=== PATIENT | female | born 1950 ===

== ENCOUNTER 2021-03-20 19:25 | Inpatient (IN) | payer OTHER, MEDICARE ==
[~2021-03-20] VITALS: Ht 157.5 cm; Wt 72.6 kg
[2021-03-20] MEDS ORDERED: LOSA50TA39 PO (19:42)
[2021-03-20] MEDS ORDERED: DIABETIC MED PO (19:42)
--- NOTE | 2021-03-20 19:49 | NUR ---
pt brought in by RA for sob, covid exposure at home. Dr. Rios at bedside for MSE.
[2021-03-20 20:38] LABS: *BILIRUBIN,URIN NEGATIVE (NEGATIVE); *BLOOD, URINE 2+ (NEGATIVE); *CLARITY,URINE CLEAR (CLEAR); *COLOR,URINE YELLOW (YELLOW); *KETONES,URINE 2+ (NEGATIVE); *UROBILINOGEN,URINE 0.2 E.U./dl (NORMAL); LEUKOCYTE ESTERASE ,URINE NEGATIVE (NEGATIVE); NITRITE, URINE POSITIVE (NEGATIVE); UGLUCOSE 1+ (NEGATIVE)
--- NOTE | 2021-03-20 20:41 | NUR ---
lab delroy blood, cxr performed.
[2021-03-20 20:47] LABS: HEMATOCRIT 37.6 % (31.2-41.9); MEAN CORPUSCULAR HEMOGLOBIN 22.4 uug (24.7-32.8); MEAN CORPUSCULAR VOLUME 69.1 fL (75.5-95.3); PLATELET COUNT (AUTO) 299 K/uL (179-408)
[2021-03-20 20:58] LABS: CREATININE 0.9 mg/dL (0.6-1.3); POTASSIUM 3.2 mmol/L (3.5-5.1)
[2021-03-20] MEDS ORDERED: DEXAMETHASONE SOD PHOSPHATE 4 MG INJ IM ONE (21:00)
[2021-03-20] MEDS ORDERED: CHOLECALCIFEROL 1,000 UNIT TABLET PO SCH (21:00)
--- NOTE | 2021-03-20 21:10 | NUR ---
Called [facility], spoke with
[2021-03-20 21:15] LABS: BILIRUBIN,DIRECT 0.3 mg/dL (0.0-0.2); BILIRUBIN,TOTAL 0.6 mg/dL (0.2-1.0); TOTAL PROTEIN, SERUM 8.1 g/dL (6.4-8.2)
[2021-03-20] MEDS ORDERED: IV NS 1000 ML 1,000 ML IV ONE (21:15)
[2021-03-20] MEDS ORDERED: POTASSIUM BICARBONATE/CIT AC 25 MEQ TABLET.EFF PO ONE (21:15)
--- NOTE | 2021-03-20 21:25 | NUR ---
call to [facility] panel doctor for admission.
[2021-03-20] MEDS ORDERED: MAGNESIUM SULFATE 2 GM in IV DEXTROSE 5% 100 ML IV ONE (21:30)
[2021-03-20] MEDS ORDERED: DEXAMETHASONE SOD PHOSPHATE 4 MG INJ ONE (21:43)
[2021-03-20] MEDS ORDERED: POTASSIUM BICARBONATE/CIT AC 25 MEQ TABLET.EFF ONE (21:44)
[2021-03-20] MEDS ORDERED: MAGNESIUM SULFATE/D5W 200 ML ONE (21:44)
--- NOTE | 2021-03-20 21:51 | NUR ---
Dr. Rios on panel call with Martine Brunner NP.
[2021-03-20] MEDS ORDERED: DEXAMETHASONE SOD PHOSPHATE 4 MG INJ IV ONE (22:00)
[2021-03-20] MEDS ORDERED: ONDANSETRON 4 MG/2 ML VIAL IV PRN (22:00)
[2021-03-20] MEDS ORDERED: CHOLECALCIFEROL 1,000 UNIT TABLET ONE (22:03)
[2021-03-20] MEDS ORDERED: IOHEXOL 350 100 ML INFUS..BTL ONE (22:12)
[2021-03-20] MEDS ORDERED: IV NORMAL SALINE 250 ML IV ONE (22:12)
[2021-03-20] MEDS ORDERED: SWABABLE VALVE TRANSFER SET EA MC ONE (22:12)
[2021-03-20 22:15] LABS: ABG BASE EXCESS 2.3 mmol/L; ABG HCO3 24.3 mmol/L; ABG PCO2 29.9 mmHg (35.0-45.0); ABG PH 7.528 (7.350-7.450); ABG PO2 46.9 mmHg (75.0-100.0); ABG SITE LEFT RADIAL; ABG TOTAL HEMOGLOBIN 12.3 G/dL (12.0-16.0); COHb 0.6 % (0.5-1.5); O2Hb 86.4 % (94.0-97.0); VENT MODE Nasal Cannula
--- NOTE | 2021-03-20 22:18 | NUR ---
abg performed po2 is low RT will report to .
[2021-03-20] MEDS: CHOLECALCIFEROL 1,000 UNIT TABLET PO SCH (22:20)
[2021-03-20 22:25] LABS: BAND % (MANUAL) 4 % (0-10); LYMPHOCYTES % (MANUAL) 5 % (20-40); MONOCYTES % (MANUAL) 4 % (2-10); NEUTROPHILS % (MANUAL) 87 % (42-75)
[2021-03-20] MEDS ORDERED: CEFTRIAXONE /D5W 50ML IVPB **ER PYXIS IV ONE (22:34)
--- NOTE | 2021-03-20 22:34 | NUR ---
order from dr. reyes to place pt on bipap. called RT.
--- NOTE | 2021-03-20 22:52 | NUR ---
pt taken for cta with RT and cardiac cath lab radiology technologist.
[2021-03-20 22:53] LABS: BACTERIA,URINE MANY /HPF (NONE SEEN); SQUAMOUS EPITHELIAL CELL,UR FEW /HPF (NONE SEEN)
[2021-03-20] MEDS ORDERED: ENOXAPARIN SODIUM 60 MG/0.6 ML DISP.SYRIN SQ SCH (23:00)
[2021-03-20] MEDS: CEFTRIAXONE 1 G in IV DEXTROSE 5% 50 ML IV SCH (23:29)
[2021-03-21] MEDS ORDERED: ENOXAPARIN SODIUM 60 MG/0.6 ML DISP.SYRIN SQ ONE (01:13)
--- NOTE | 2021-03-21 02:17 | NUR ---
report called to Lalitha Garza pt to go to room 320
--- NOTE | 2021-03-21 02:50 | NUR ---
pt transferred to room 322 via [facility] with all belongings. RT and myself transferred the patient. Pt remains on bipap.
[2021-03-21] MEDS: IV NS 1000 ML 1,000 ML IV PRN (03:32)
--- NOTE | 2021-03-21 05:36 | NUR ---
Pt arrived at 0340 via gurney. On Bipap, 18 iPAP/ 5 ePap, 02 100% R=18, Rise =3, saturating at 97%. AO x 4. Able to state needs. L AC 22g intact and patent, running NS at 75 mls/hr. R wrist 22 g heplock, saline flushed. Admission packet completed. Aspiration precautions. Droplet Precautions. Call lights within reach, safety measures maintained. Will endorse to am shift.
[2021-03-21 06:31] LABS: HEMATOCRIT 35.5 % (31.2-41.9); MEAN CORPUSCULAR HEMOGLOBIN 22.7 uug (24.7-32.8); MEAN CORPUSCULAR VOLUME 70.5 fL (75.5-95.3); PLATELET COUNT (AUTO) 252 K/uL (179-408)
[2021-03-21 06:44] LABS: CREATININE 0.9 mg/dL (0.6-1.3); MAGNESIUM 2.6 mg/dL (1.8-2.4); PHOSPHOROUS 3.2 mg/dL (2.5-4.9); POTASSIUM 3.8 mmol/L (3.5-5.1)
--- NOTE | 2021-03-21 10:00 | NUR ---
Received PT resting in bed on Bi-pap, 18 i-PAP/ 5 ePap, 02 100% R=18, saturating at 97%. AO x 4. Able to state needs. L AC 22g intact and patent,. R wrist 22 g heplock, saline flushed.Aspiration precautions. Droplet Precautions in place. PT was place on high flow 40% FIO2 of 100% via the RT. Receive a called from the lab with critical values of Glucose 308, with new order for mild sliding scale. Call lights within reach, safety measures maintained. Will continue to monitor during the shift.
[2021-03-21] MEDS: DEXAMETHASONE SOD PHOSPHATE 4 MG INJ IV SCH (10:03)
[2021-03-21] MEDS: LOSARTAN POTASSIUM 50 MG TABLET PO SCH (10:04)
[2021-03-21] MEDS: ENOXAPARIN SODIUM 80 MG/0.8 ML DISP.SYRIN SQ SCH ×2 (10:25→21:59)
[2021-03-21] MEDS ORDERED: ENOXAPARIN SODIUM 60 MG/0.6 ML DISP.SYRIN SQ SCH (10:29)
[2021-03-21] MEDS ORDERED: ENOXAPARIN SODIUM 80 MG/0.8 ML DISP.SYRIN SQ SCH (10:30)
[2021-03-21] MEDS ORDERED: DEXTROSE 50% 50 ML DISP.SYRIN IV PRN (11:00)
[2021-03-21] MEDS: BLOOD SUGAR DIAGNOSTIC 1 EACH STRIP VI SCH ×3 (11:30→21:57)
[2021-03-21 11:54] VITALS: BP 135/53
[2021-03-21] MEDS: INSULIN REGULAR, HUMAN 300 UNIT/3 ML VIAL SQ PRN ×3 (12:39→22:00)
[2021-03-21 16:00] VITALS: BP 122/59
[2021-03-21] MEDS ORDERED: CEFTRIAXONE 1 G in IV DEXTROSE 5% 50 ML IV SCH (19:00)
[2021-03-21 20:00] VITALS: BP 144/54
[2021-03-21] MEDS: AZITHROMYCIN IV 500 MG in IV DEXTROSE 5% 250 ML IV SCH (20:59)
[2021-03-21] MEDS ORDERED: REMDESIVIR (CHARGED) 200 MG in IV NORMAL SALINE 210 ML IV ONE (21:00)
[2021-03-21] MEDS ORDERED: TOCILIZUMAB 400 MG in IV NORMAL SALINE 80 ML IV ONE (22:30)
[2021-03-22] VITALS: BP 122/70
--- NOTE | 2021-03-22 05:32 | NUR ---
Pt on Bipap with 18 ipap, 5 epap, O2 80%, R 18 saturating at 88-92% with continious pulse ox. AO x 4. IV in L AC intact and running 75 mls/hr. Rocephin and Remdesivir abx given, tolerated. Tocilizumab 400 mg in NS not given, not available. No signs of acute distress. Call lights within reach. Safety measures maintained. Will endorse to am shift.
[2021-03-22] MEDS: IV NS 1000 ML 1,000 ML IV PRN (06:48)
[2021-03-22] MEDS: BLOOD SUGAR DIAGNOSTIC 1 EACH STRIP VI SCH ×4 (07:17→21:00)
[2021-03-22] MEDS ORDERED: TOCILIZUMAB 400 MG in IV NORMAL SALINE 80 ML IV ONE (07:45)
--- NOTE | 2021-03-22 08:18 | NUR ---
Received pt, She is on 80% flow on bipap, saturating at 98%. RT in room to switch to high flow NC in order for pt to eat breakfast, delivering 100% but pt desaturates to 76%-86%. Notified Nursing passenger service supervisor of ICU transfer order since 03/21/21 1800, she stated that pt may have to stay on floor due to full capacity in ICU and 2 pending in ER. Will continue to closely monitor patient.
[2021-03-22 08:30] VITALS: BP 121/68
[2021-03-22] MEDS: DEXAMETHASONE SOD PHOSPHATE 4 MG INJ IV SCH (08:35)
[2021-03-22] MEDS: CHOLECALCIFEROL 1,000 UNIT TABLET PO SCH (08:35)
[2021-03-22 08:45] LABS: HEMATOCRIT 44.3 % (31.2-41.9); MEAN CORPUSCULAR HEMOGLOBIN 22.6 uug (24.7-32.8); MEAN CORPUSCULAR VOLUME 70.5 fL (75.5-95.3); PLATELET COUNT (AUTO) 358 K/uL (179-408)
[2021-03-22] MEDS: LOSARTAN POTASSIUM 50 MG TABLET PO SCH (08:46)
[2021-03-22 08:47] LABS: BILIRUBIN,DIRECT 0.2 mg/dL (0.0-0.2); BILIRUBIN,TOTAL 0.4 mg/dL (0.2-1.0); CREATININE 0.9 mg/dL (0.6-1.3); MAGNESIUM 2.9 mg/dL (1.8-2.4); PHOSPHOROUS 2.8 mg/dL (2.5-4.9); POTASSIUM 4.2 mmol/L (3.5-5.1)
[2021-03-22] MEDS: ACETAMINOPHEN 325 MG TABLET PO PRN (08:47)
[2021-03-22] MEDS: CEFTRIAXONE 1 G in IV DEXTROSE 5% 50 ML IV SCH (08:48)
[2021-03-22] MEDS: ENOXAPARIN SODIUM 80 MG/0.8 ML DISP.SYRIN SQ SCH ×2 (08:49→21:00)
[2021-03-22] MEDS: INSULIN REGULAR, HUMAN 300 UNIT/3 ML VIAL SQ PRN ×3 (08:50→16:24)
[2021-03-22] MEDS ORDERED: TOCILIZUMAB 600 MG in IV NORMAL SALINE 70 ML IV ONE (11:00)
[2021-03-22 12:00] VITALS: BP 127/61
[2021-03-22 13:42] LABS: ABG HCO3 25.5 mmol/L; ABG PCO2 36.2 mmHg (35.0-45.0); ABG PH 7.466 (7.350-7.450); ABG PO2 64.9 mmHg (75.0-100.0); ABG SITE RIGHT RADIAL; ABG TOTAL HEMOGLOBIN 12.6 G/dL (12.0-16.0); COHb 0.2 % (0.5-1.5); MetHb 0.1 % (0.0-1.5); VENT MODE BIPAP 18/6
[2021-03-22 16:00] VITALS: BP 125/60
[2021-03-22] MEDS ORDERED: FUROSEMIDE 40 MG/4 ML VIAL IV ONE (16:45)
[2021-03-22 16:54] LABS: CARBON DIOXIDE 30 mmol/L (21-32); CHLORIDE 91 mmol/L (98-107); CREATININE 0.9 mg/dL (0.6-1.3); GLUCOSE 257 mg/dL (74-106); MAGNESIUM 2.5 mg/dL (1.8-2.4); PHOSPHOROUS 3.2 mg/dL (2.5-4.9); POTASSIUM 4.2 mmol/L (3.5-5.1); UREA NITROGEN, BLOOD 15 mg/dL (7-18)
--- NOTE | 2021-03-22 17:30 | NUR ---
per lab cortisol will be drawn in the morning due to no picking supervisor inspector quality assurance.
[2021-03-22 17:40] LABS: THYROID STIMULATING HORMONE 0.112 mIU/mL (0.358-3.740)
--- NOTE | 2021-03-22 19:10 | NUR ---
Patient received on Respironics-V60 on settings of IPAP 18, EPAP 6, set resp. rate 18 and FIO2-100%. No resp. distress noted. BVM is at bedside. Pt to be monitored throughout the shift. V-60 alarm parameters have been checked and remain audible.
--- NOTE | 2021-03-22 19:16 | NUR ---
pt is currently on 100% O2 on bipap machine saturating 93-95%, IPAP [id number], EPAP 6cmH2O, rate 58BPM, PIP [id number]. pt desaturates to 76-78% on high flow and nonrebreather. pt kept on BiPap. call RT when meals are given to switch to high flow until not tolerated anymore. Pt currently stable, comfort measures provided, call light within reach, endorsed to shift supervisor melting.
[2021-03-22] MEDS: AZITHROMYCIN IV 500 MG in IV DEXTROSE 5% 250 ML IV SCH (20:00)
[2021-03-22] MEDS: REMDESIVIR (CHARGED) 100 MG in IV NORMAL SALINE 100 ML IV SCH (21:44)
[2021-03-23] MEDS: INSULIN REGULAR, HUMAN 300 UNIT/3 ML VIAL SQ PRN ×5 (01:45→20:57)
[2021-03-23 07:24] LABS: MEAN CORPUSCULAR HEMOGLOBIN 22.3 uug (24.7-32.8); MEAN CORPUSCULAR VOLUME 69.8 fL (75.5-95.3); PLATELET COUNT (AUTO) 391 K/uL (179-408)
[2021-03-23 07:39] LABS: BILIRUBIN,DIRECT 0.2 mg/dL (0.0-0.2); BILIRUBIN,TOTAL 0.2 mg/dL (0.2-1.0); CREATININE 0.7 mg/dL (0.6-1.3); MAGNESIUM 2.4 mg/dL (1.8-2.4); PHOSPHOROUS 3.6 mg/dL (2.5-4.9); POTASSIUM 3.7 mmol/L (3.5-5.1); TOTAL PROTEIN, SERUM 6.9 g/dL (6.4-8.2)
--- NOTE | 2021-03-23 08:21 | NUR ---
Supervisor [employer] informed of transfer order to CCU and patient currently on continuos bipap, pt desaturates to low 70% when off bipap for short period of time, per airplane flight attendant supervisor we are aware, we will monitor for now.
[2021-03-23] MEDS: CEFTRIAXONE 1 G in IV DEXTROSE 5% 50 ML IV SCH (08:24)
[2021-03-23] MEDS: ENOXAPARIN SODIUM 80 MG/0.8 ML DISP.SYRIN SQ SCH ×2 (08:26→20:56)
[2021-03-23] MEDS: DEXAMETHASONE SOD PHOSPHATE 4 MG INJ IV SCH ×3 (08:28→22:56)
[2021-03-23] MEDS: LOSARTAN POTASSIUM 50 MG TABLET PO SCH (08:29)
[2021-03-23] MEDS: CHOLECALCIFEROL 1,000 UNIT TABLET PO SCH (08:29)
[2021-03-23] MEDS: BLOOD SUGAR DIAGNOSTIC 1 EACH STRIP VI SCH ×4 (08:39→20:56)
[2021-03-23] MEDS ORDERED: FUROSEMIDE 40 MG/4 ML VIAL IV ONE (09:30)
[2021-03-23 09:57] LABS: ABG BASE EXCESS 5.5 mmol/L; ABG HCO3 29.1 mmol/L; ABG PCO2 39.2 mmHg (35.0-45.0); ABG PH 7.489 (7.350-7.450); ABG PO2 52.5 mmHg (75.0-100.0); ABG SITE LEFT RADIAL; ABG TOTAL HEMOGLOBIN 12.7 G/dL (12.0-16.0); COHb 0.4 % (0.5-1.5); MetHb 0.1 % (0.0-1.5); O2Hb 87.6 % (94.0-97.0); VENT MODE BIPAP
[2021-03-23 11:00] VITALS: BP 133/54
[2021-03-23 13:29] LABS: LYMPHOCYTES % (MANUAL) 11 % (20-40); MONOCYTES % (MANUAL) 9 % (2-10); NEUTROPHILS % (MANUAL) 80 % (42-75)
--- NOTE | 2021-03-23 14:15 | NUR ---
assisted patient to eat lunch, patient placed on high flow to attempt to feed was only able to eat 15% patient desaturates between 79%-83%, promptly placed back on bipap, current spo2 is 91%.
[2021-03-23 16:00] VITALS: BP 154/68
[2021-03-23] MEDS: AZITHROMYCIN IV 500 MG in IV DEXTROSE 5% 250 ML IV SCH (20:29)
--- NOTE | 2021-03-23 21:00 | NUR ---
PATIENT ALERT ORIENTED, ON BIPAP, SAT 92% NO COMPLAIN AT THIS TIME, REMAINS ON DROPLET PRECAUTION, KEPT COMFORTABE, CALL LIGHT WITHIN REACH.
[2021-03-23] MEDS: REMDESIVIR (CHARGED) 100 MG in IV NORMAL SALINE 100 ML IV SCH (21:28)
[2021-03-24] VITALS (8 sets, daily range): BP systolic 146–170; BP diastolic 54–86
--- NOTE | 2021-03-24 05:01 | NUR ---
PATIENT ASLEEP BUT AROUSABLE, PATIENT ON BIPAP 100% SAT 90 TO 92%. PATIENT COMPLAIN OF DRY THROAT, RT GAVE WATER WHILE PATIENT ON THE HIGHFLOW OXYGEN TO PREVENT FROM DESATURATING., TELE MONITOR SINUS RHYTHM, KEPT CLEAN DRY AND COMFORTABLE.
[2021-03-24] MEDS: DEXAMETHASONE SOD PHOSPHATE 4 MG INJ IV SCH ×3 (06:11→21:16)
[2021-03-24 06:36] LABS: HEMATOCRIT 38.6 % (31.2-41.9); MEAN CORPUSCULAR VOLUME 70.1 fL (75.5-95.3); PLATELET COUNT (AUTO) 462 K/uL (179-408)
[2021-03-24] MEDS: BLOOD SUGAR DIAGNOSTIC 1 EACH STRIP VI SCH ×4 (06:37→20:57)
[2021-03-24 06:59] LABS: BILIRUBIN,DIRECT 0.2 mg/dL (0.0-0.2); BILIRUBIN,TOTAL 0.3 mg/dL (0.2-1.0); CREATININE 0.8 mg/dL (0.6-1.3); POTASSIUM 3.5 mmol/L (3.5-5.1); TOTAL PROTEIN, SERUM 7.2 g/dL (6.4-8.2)
--- NOTE | 2021-03-24 07:30 | NUR ---
Received patient in bed alert and oriented times 4. Pt is currently on BIPAP FIO2 is 100% with a O2 rate of 38.4. Pt is having SOB at this time. Safety precautions are in place place. Increased monitoring of patient is needed. Will continue to monitor.
--- NOTE | 2021-03-24 08:46 | NUR ---
Awaiting midline to infuse IV potassium. Nursing office aware of midline. Will continue to monitor.
[2021-03-24] MEDS: CEFTRIAXONE 1 G in IV DEXTROSE 5% 50 ML IV SCH (10:15)
[2021-03-24] MEDS: CHOLECALCIFEROL 1,000 UNIT TABLET PO SCH (10:16)
[2021-03-24] MEDS: LOSARTAN POTASSIUM 50 MG TABLET PO SCH (10:20)
[2021-03-24] MEDS: INSULIN REGULAR, HUMAN 300 UNIT/3 ML VIAL SQ PRN ×4 (10:32→20:58)
[2021-03-24] MEDS: ENOXAPARIN SODIUM 80 MG/0.8 ML DISP.SYRIN SQ SCH ×2 (10:33→20:59)
[2021-03-24] MEDS ORDERED: TOCILIZUMAB 400 MG in IV NORMAL SALINE 80 ML IV ONE (11:15)
[2021-03-24] MEDS: POTASSIUM CHLORIDE 50 ML IV SCH ×2 (14:23→17:50)
[2021-03-24] MEDS ORDERED: TOCILIZUMAB 600 MG in IV NORMAL SALINE 70 ML IV ONE ×4 (15:00)
[2021-03-24] MEDS: METHIMAZOLE 5 MG TABLET PO SCH ×2 (15:09→21:16)
[2021-03-24] MEDS ORDERED: NORMAL SALINE IV ONE (16:00)
[2021-03-24] MEDS ORDERED: TOCILIZUMAB IV ONE (16:00)
--- NOTE | 2021-03-24 16:39 | NUR ---
Patient brought in at this by charge Enedelia Naik as stated medications hanging will be administered by floor nurse. noted several bags of piggy backs hanging with endings uncap. one bag of potassium hanging not infusing no report received. One bag of remdesevir noted awaiting for report. Addendum: 03/24/21 at 1747 by RAMÓN AN RN bar of ectam.
--- NOTE | 2021-03-24 17:13 | NUR ---
upon assessment patient AAOx3. follows commands, Hemodynamically stable heart rate in the mid 70's NSR sbp 158/86. Patient on BIPAP 18/6. Rate Rate of 18, FIo2 100%. Will continue to monitor.
[2021-03-24] MEDS ORDERED: POTASSIUM CHLORIDE 50 ML IV SCH (17:45)
--- NOTE | 2021-03-24 17:45 | NUR ---
Bedside report received from Enedelia Blanca. pharmacy called with her present potassium 2nd dose will be reschedule. Will continue to monitor.
--- NOTE | 2021-03-24 17:50 | NUR ---
2Nd bag of potassium not given. endorse to be given in ICU.
--- NOTE | 2021-03-24 17:57 | NUR ---
Report endorse to the ICU nurse. Pt sent in stable condition on BIPAP saturating at 88%.
[2021-03-24] MEDS: PANTOPRAZOLE SODIUM 40 MG VIAL IV SCH (18:09)
--- NOTE | 2021-03-24 19:30 | NUR ---
rounds made patient in bed AAOX4,MAEX4 slow and weak .patient able to verbalized needs .call light placed with in reach .advised to call for help .covid + patient on bipap 18/6 rate 18 fio2 100% saturation 98% rr 39.hob up and placed 2 pillows at the back . f/c to bsd with yellowish urine .
[2021-03-24] MEDS: REMDESIVIR (CHARGED) 100 MG in IV NORMAL SALINE 100 ML IV SCH (20:55)
[2021-03-24] MEDS: AZITHROMYCIN IV 500 MG in IV DEXTROSE 5% 250 ML IV SCH (20:55)
--- NOTE | 2021-03-24 21:00 | NUR ---
due po medication given patient took medication with sips of water .
--- NOTE | 2021-03-24 22:00 | NUR ---
incontinent of stool ,changed soiled linens and gown ,f/c done and perineal care done . turned and reposition patient .
[2021-03-24] MEDS: MORPHINE SULFATE 2 MG/1 ML DISP.SYRIN IV PRN (23:32)
--- NOTE | 2021-03-24 23:32 | NUR ---
called [facility] service c/o patient very restless and hyperventilating ,on bipap ,spoked with doctor SONAM obtained orders for prn morphine and Ativan .
[2021-03-25] VITALS (48 sets, daily range): BP systolic 61–170; BP diastolic 33–86
--- NOTE | 2021-03-25 00:26 | NUR ---
PATIENT ON CONT BI/PAP WITH MED MASK , PT AWAKE AND ANXIOUS AT TIMES, PT TENDS TO BREATH RAPID AT TIMES, SETTINGS, 18/,RR18 , 100%, D ELIZA RIB BUILDER Addendum: 03/25/21 at 0034 by SOREN KAY RT Amended: Links added.
[2021-03-25] MEDS: IV NORMAL SALINE 250 ML IV PRN (01:35)
[2021-03-25] MEDS: MORPHINE SULFATE 2 MG/1 ML DISP.SYRIN IV PRN ×2 (03:36→20:35)
--- NOTE | 2021-03-25 03:36 | NUR ---
prn morphine given c/o generalized body pain and c/o rapid breathing RR 35 TO 38.
--- NOTE | 2021-03-25 04:00 | NUR ---
sips of water given c/o request ,aspiration precaution observed .
[2021-03-25] MEDS: METHIMAZOLE 5 MG TABLET PO SCH ×3 (05:22→21:11)
[2021-03-25] MEDS: DEXAMETHASONE SOD PHOSPHATE 4 MG INJ IV SCH ×3 (05:23→21:11)
[2021-03-25 05:57] LABS: HEMATOCRIT 42.5 % (31.2-41.9); MEAN CORPUSCULAR HEMOGLOBIN 22.2 uug (24.7-32.8); MEAN CORPUSCULAR VOLUME 70.6 fL (75.5-95.3); PLATELET COUNT (AUTO) 542 K/uL (179-408)
[2021-03-25 06:13] LABS: BILIRUBIN,DIRECT 0.2 mg/dL (0.0-0.2); BILIRUBIN,TOTAL 0.3 mg/dL (0.2-1.0); CREATININE 0.9 mg/dL (0.6-1.3); MAGNESIUM 2.6 mg/dL (1.8-2.4); PHOSPHOROUS 5.3 mg/dL (2.5-4.9); POTASSIUM 4.3 mmol/L (3.5-5.1); TOTAL PROTEIN, SERUM 6.6 g/dL (6.4-8.2)
[2021-03-25] MEDS: BLOOD SUGAR DIAGNOSTIC 1 EACH STRIP VI SCH ×4 (07:43→23:09)
[2021-03-25] MEDS: INSULIN REGULAR, HUMAN 300 UNIT/3 ML VIAL SQ PRN ×4 (07:44→23:10)
[2021-03-25] MEDS: LOSARTAN POTASSIUM 50 MG TABLET PO SCH (08:30)
[2021-03-25] MEDS: CHOLECALCIFEROL 1,000 UNIT TABLET PO SCH (08:30)
[2021-03-25] MEDS: PANTOPRAZOLE SODIUM 40 MG VIAL IV SCH (08:31)
[2021-03-25] MEDS: ENOXAPARIN SODIUM 80 MG/0.8 ML DISP.SYRIN SQ SCH ×2 (08:31→20:33)
[2021-03-25] MEDS: CEFTRIAXONE 1 G in IV DEXTROSE 5% 50 ML IV SCH (08:32)
[2021-03-25 08:36] LABS: ABG BASE EXCESS 2.7 mmol/L; ABG HCO3 28.4 mmol/L; ABG PCO2 47.6 mmHg (35.0-45.0); ABG PH 7.393 (7.350-7.450); ABG PO2 40.2 mmHg (75.0-100.0); ABG SITE LEFT RADIAL; ABG TOTAL HEMOGLOBIN 14.4 G/dL (12.0-16.0); COHb 0.9 % (0.5-1.5); MetHb 0.4 % (0.0-1.5); O2Hb 70.1 % (94.0-97.0); VENT MODE VENT - BILEVEL
--- NOTE | 2021-03-25 09:31 | NUR ---
Family member called claiming to be brother asking for patient information. Patient did not give any contact member. Asked forensic social worker to get involved in trying to find out whether information can be released to anyone.
--- NOTE | 2021-03-25 11:14 | NUR ---
Spoke to patient. patient gave brother as family contact Bernardo Ra that lives in [place] with a phone number that she wrote down [phone]. Patient is ok to give health information to brother.
[2021-03-25] MEDS: PROPOFOL 100 ML IV PRN ×3 (11:54→22:38)
--- NOTE | 2021-03-25 12:00 | NUR ---
patient was intubated with ET of 7.5 and 22cm at the lip with vent settings AC20, 450TV, Peep 10, FiO2 100%. NGT was placed and chest CXR ordered.
--- NOTE | 2021-03-25 12:00 | NUR ---
PT ORALLY INTUBATED AT THIS TIME WITH 7.5 ETT APPROX. 22CM AT THE LIP. CO2 DETECTOR CONFIRMED ETT PLACEMENT. VENT SETTINGS ARE ORDERED BY MD. AMBU BAG IS AT BEDSIDE. VENT ALARMS CHECKED, ARE ON AND AUDIBLE. ETT IS SECURED VIA ANCHOR FAST. ABG TO BE DONE 1 HR POST INTUBATION. WILL CONTINUE TO MONITOR.
--- NOTE | 2021-03-25 12:00 | NUR ---
Willa Cha spoke to ER doctor Joseph Sanchez and with the patient for need of intubation. Patient received 100 of Rocuronium. and 30 of Etomidate.
[2021-03-25 13:56] LABS: ABG BASE EXCESS 0.8 mmol/L; ABG HCO3 28.9 mmol/L; ABG PCO2 61.4 mmHg (35.0-45.0); ABG PO2 90.7 mmHg (75.0-100.0); ABG SITE LEFT RADIAL; ABG TOTAL HEMOGLOBIN 14.1 G/dL (12.0-16.0); COHb 0.9 % (0.5-1.5); MetHb 0.1 % (0.0-1.5); O2Hb 94.7 % (94.0-97.0); VENT MODE VENT - A/C; VT, ABG 450 mL
--- NOTE | 2021-03-25 14:30 | NUR ---
Reported ABG results to Dr. Gonzalez. Per dr. Gonzalez orders RT made vent changes to increase rate to 26.
[2021-03-25] MEDS ORDERED: DEXTROSE 50% 50 ML DISP.SYRIN IV PRN (14:51)
[2021-03-25] MEDS: NOREPINEPHRINE BITARTRATE 8 MG in IV NORMAL SALINE 242 ML IV PRN (15:45)
--- NOTE | 2021-03-25 19:30 | NUR ---
DR: SONAM AT [facility] came and rounded on patient . report given to .
--- NOTE | 2021-03-25 20:00 | NUR ---
vented ETT -7.5/22 CM SETTINGS AC26/450/100% PEEP 10.increase propofol drip to 50 mcg/kg/min patient tachypneic on the ventilator .
[2021-03-25] MEDS: AZITHROMYCIN IV 500 MG in IV DEXTROSE 5% 250 ML IV SCH (20:15)
[2021-03-25] MEDS: REMEDY ESSENTIAL ZINC PASTE 113 GM TOP SCH (20:20)
--- NOTE | 2021-03-25 20:35 | NUR ---
given prn morphine c/o patient is tachypneic abdominally breathing RR 35 on the vent .
[2021-03-25] MEDS: REMDESIVIR (CHARGED) 100 MG in IV NORMAL SALINE 100 ML IV SCH (20:36)
--- NOTE | 2021-03-25 20:45 | NUR ---
FINGERSTICK done 263 mg/dl Lantus insulin given see emar .
--- NOTE | 2021-03-25 20:45 | NUR ---
CHRISTIAN LEON TON CONTAINER SHIPPER CAME AND UPDATED WITH PATIENT CONDITION .
[2021-03-25] MEDS ORDERED: INSULIN GLARGINE,HUM 300 UNITS/3 ML CARTRIDGE SQ SCH (21:00)
--- NOTE | 2021-03-25 21:00 | NUR ---
increase LEVOPHED DRIP c/o low bp to keep SBP >90 .
[2021-03-25] MEDS ORDERED: ROCURONIUM BROMIDE 50 MG/5 ML VIAL ONE ×2 (22:00)
[2021-03-25] MEDS ORDERED: ETOMIDATE 20 MG/10 ML VIAL ONE ×2 (22:00)
[2021-03-25] MEDS ORDERED: PHENYLEPHRINE IV 50 MG in IV NORMAL SALINE 245 ML IV PRN (22:15)
--- NOTE | 2021-03-25 22:17 | NUR ---
CALLED [facility] AND SPOKED WITH KERI EPPERSON [employer] CONSULTANT, C/O LOW BP ,TACHYPNEIC ON THE VENT AND LOW SATURATION WITH ORDER TO INCREASE PROPOFOL TO MAX OF 100 MCG/KG/MIN ,PRN NORSYNEPHRINE DRIP PER PROTOCOL AND VERSED DRIP PER PROTOCOL IF NEEDED. Addendum: 03/26/21 at 0150 by WESTLEY ZIMMER RN NEOSYNEPHRINE DRIP.
[2021-03-25 22:48] LABS: ABG BASE EXCESS -2.1 mmol/L; ABG HCO3 23.6 mmol/L; ABG PCO2 44.1 mmHg (35.0-45.0); ABG PH 7.347 (7.350-7.450); ABG PO2 31.9 mmHg (75.0-100.0); ABG SITE LEFT RADIAL; ABG TOTAL HEMOGLOBIN 14.3 G/dL (12.0-16.0); COHb 0.7 % (0.5-1.5); MetHb 0.3 % (0.0-1.5); O2Hb 56.5 % (94.0-97.0); VENT MODE VENT - A/C; VT, ABG 450 mL
--- NOTE | 2021-03-25 23:00 | NUR ---
CALLED [facility] INSTALLER AND REMOVER C/O ABG RESULT ,AWAITING CALL BACK PER SERVICE THE METER INSTALLER AND REMOVER IS DANELLE.
--- NOTE | 2021-03-25 23:22 | NUR ---
SPOKED TO [facility] AND DICTATED ABG RESULTS WITH ORDER TO INCREASE PEEP TO 13 IF NOT ENOUGH INCREASE TO 15.PRONE PATIENT .
--- NOTE | 2021-03-25 23:33 | NUR ---
CALLED RESPIRATORY THERAPIST CAME AND INCREASE PEEP TO 15.HR 92,BP 99/49 RR 27 SATURATION 100% ,PATIENT IMPROVED AFTER PEEP WAS INCREASE .CONTINUE TO MONITOR .
[2021-03-26] VITALS (95 sets, daily range): BP systolic 59–172; BP diastolic 27–100
--- NOTE | 2021-03-26 | NUR ---
fingerstick done and follow insulin sliding scale see emar . Levophed drip titrated to keep sbp >90 mm/hg . propofol increase to help with patient tachypnea and overbreathing with the vent settings see vital signs and IV spreadsheet .
--- NOTE | 2021-03-26 01:00 | NUR ---
GREG FRANCISCO AT [facility] FOR PICCLINE INSERTION .
--- NOTE | 2021-03-26 01:35 | NUR ---
CALLED XRAY FOR STAT CHEST C/O VERIFICATION OF PICCLINE PLACEMENT .
--- NOTE | 2021-03-26 01:45 | NUR ---
GREG CALLED CHEST XRAY GOOD AND OBED GARCIA TO USED
[2021-03-26] MEDS: NOREPINEPHRINE BITARTRATE 8 MG in IV NORMAL SALINE 242 ML IV PRN ×2 (03:04→12:07)
[2021-03-26] MEDS: PROPOFOL 100 ML IV PRN ×6 (03:05→21:43)
[2021-03-26] MEDS: IV NORMAL SALINE 250 ML IV PRN (03:05)
--- NOTE | 2021-03-26 04:30 | NUR ---
bath patient changed soiled linens and gown .Moore care and oral care done .z guard applied to sacral and bilateral groin area ,Mepilex to sacral for protective measures turned and reposition .offloaded back wit pillows elevated bue and ble with pillows heels off bed .
[2021-03-26] MEDS: DEXAMETHASONE SOD PHOSPHATE 4 MG INJ IV SCH ×3 (05:10→21:30)
[2021-03-26] MEDS: METHIMAZOLE 5 MG TABLET PO SCH ×3 (05:10→21:30)
[2021-03-26 05:11] LABS: HEMATOCRIT 45.3 % (31.2-41.9); MEAN CORPUSCULAR HEMOGLOBIN 22.2 uug (24.7-32.8); MEAN CORPUSCULAR VOLUME 70.8 fL (75.5-95.3); PLATELET COUNT (AUTO) 730 K/uL (179-408)
[2021-03-26] MEDS: BLOOD SUGAR DIAGNOSTIC 1 EACH STRIP VI SCH ×4 (05:22→23:29)
[2021-03-26] MEDS: INSULIN REGULAR, HUMAN 300 UNIT/3 ML VIAL SQ PRN ×4 (05:25→23:30)
[2021-03-26 05:48] LABS: CARBON DIOXIDE 27 mmol/L (21-32); CHLORIDE 95 mmol/L (98-107); CREATININE 2.1 mg/dL (0.6-1.3); PHOSPHOROUS 7.1 mg/dL (2.5-4.9); POTASSIUM 4.7 mmol/L (3.5-5.1); UREA NITROGEN, BLOOD 52 mg/dL (7-18)
[2021-03-26 05:56] LABS: GLUCOSE 394 mg/dL (74-106)
[2021-03-26 06:03] LABS: MAGNESIUM 2.9 mg/dL (1.8-2.4)
[2021-03-26 06:28] LABS: BAND % (MANUAL) 5 % (0-10); EOSINOPHILS % (MANUAL) 1 % (0-8); LYMPHOCYTES % (MANUAL) 3 % (20-40); METAMYELOCYTES % 1 % (0-1); MONOCYTES % (MANUAL) 2 % (2-10); NEUTROPHILS % (MANUAL) 88 % (42-75)
[2021-03-26 07:56] LABS: ABG BASE EXCESS -1.6 mmol/L; ABG HCO3 24.8 mmol/L; ABG PCO2 48.4 mmHg (35.0-45.0); ABG PH 7.327 (7.350-7.450); ABG PO2 222.8 mmHg (75.0-100.0); ABG SITE RIGHT RADIAL; COHb 0.8 % (0.5-1.5); MetHb 0.3 % (0.0-1.5); O2Hb 98.5 % (94.0-97.0); VENT MODE VENT - A/C; VT, ABG 450 mL
--- NOTE | 2021-03-26 08:00 | NUR ---
Received patient sedated on ETT to vent with the following setting; AC 12, TV 450, PEEP of 15, rate of 26 and FiO2 of 100%. Suctioned a scant amount of clear thin secretions. Cardiac fernandes NSR is on Levophed with SBP on the 141's. NGT feeding is off at the moment. Moore cath in place draining clear and yellow urine. Skin is moist, no new pressure ulcers noted. Safety initiated, side rails up, bed in low and lock position. Will continue to monitor.
[2021-03-26] MEDS: CEFTRIAXONE 1 G in IV DEXTROSE 5% 50 ML IV SCH (08:39)
[2021-03-26] MEDS: CHOLECALCIFEROL 1,000 UNIT TABLET PO SCH (08:42)
[2021-03-26] MEDS: LOSARTAN POTASSIUM 50 MG TABLET PO SCH (08:43)
[2021-03-26] MEDS: PANTOPRAZOLE SODIUM 40 MG VIAL IV SCH (08:43)
[2021-03-26] MEDS: ENOXAPARIN SODIUM 80 MG/0.8 ML DISP.SYRIN SQ SCH ×2 (08:47→21:29)
[2021-03-26] MEDS: REMEDY ESSENTIAL ZINC PASTE 113 GM TOP SCH ×2 (08:50→21:30)
--- NOTE | 2021-03-26 11:15 | NUR ---
Parking Inspector at bedside. New orders were given. Review order history. Will continue to monitor.
[2021-03-26] MEDS: IV NS 1000 ML 1,000 ML IV SCH ×2 (12:08→21:23)
[2021-03-26] MEDS ORDERED: INSULIN REGULAR, HUMAN 300 UNIT/3 ML VIAL SQ ONE (12:30)
--- NOTE | 2021-03-26 12:31 | NUR ---
BS was > 400, HCP made aware, new orders received. Will continue to monitor.
[2021-03-26 13:06] LABS: CRYPTOCOCCUS AB, SERUM Negative (Negative)
[2021-03-26] MEDS: VITAL AF 1.2 1,000 ML LIQUID GT PRN (13:06)
--- NOTE | 2021-03-26 16:27 | NUR ---
Increased crepitus on the left neck and chest, HCP aware, new orders received. Scant bleeding on the PICC line, pressure dressing applied. Will continue to monitor.
--- NOTE | 2021-03-26 17:07 | NUR ---
Patient does not tolerate being turned to the right side. Patient desats to the high 70's or slow 80's. Will continue to monitor.
--- NOTE | 2021-03-26 17:56 | NUR ---
CXR resulted, HCP made aware, no new orders. Will continue to monitor.
--- NOTE | 2021-03-26 19:30 | NUR ---
RIGHT NECK AND RIGHT UPPER CHEST WITH MILD SUBCUTANEOUS EMPHYSEMA PER DAY SHIFT ENDORSEMENT MD IS AWARE ,WILL CONTINUE TO MONITOR .
--- NOTE | 2021-03-26 20:00 | NUR ---
ROUNDS MADE PATIENT IN BED ORALLY INTUBATED ETT 7.5./22 CM VENT SETTINGS AC26/450/FIO2 100/PEEP 15, SUCTION PATIENT VIA ETT AND MOUTH SMALL SECRETION THIN WHITISH IN COLOR .TURNED PATIENT TO THE LEFT SIDE OFFLOADED BACK WITH PILLOWS. HEELS OFF FROM BED WITH PILLOWS SCDS TO BILATERAL LOWER EXTREMITIES . RIGHT PICC ON LEVOPHED DRIP ,PROPOFOL DRIP ,NORMAL SALINE @ 100 ML/HR . LEFT NGT TF ON VITAL AF AT 50 ML/HR AT GOAL . F/C TO BSD WITH YELLOWISH URINE .
[2021-03-26] MEDS ORDERED: INSULIN GLARGINE,HUM 300 UNITS/3 ML CARTRIDGE SQ SCH (21:00)
--- NOTE | 2021-03-26 22:00 | NUR ---
TURNED AND REPOSITION PATIENT . SUCTION VIA ETT AND VIA MOUTH . CONTINUE WITH LEVOPHED DRIP AND PROPOFOL DRIP FOR SEDATION .
[2021-03-27] VITALS (96 sets, daily range): BP systolic 79–161; BP diastolic 34–89
--- NOTE | 2021-03-27 | NUR ---
FINGERSTICK DONE AND FOLLOW INSULIN SLIDING SCALE COVERAGES . .
[2021-03-27] MEDS: NOREPINEPHRINE BITARTRATE 8 MG in IV NORMAL SALINE 242 ML IV PRN ×2 (00:25→20:56)
[2021-03-27] MEDS: PROPOFOL 100 ML IV PRN ×8 (01:05→21:32)
[2021-03-27] MEDS: MORPHINE SULFATE 2 MG/1 ML DISP.SYRIN IV PRN ×2 (02:02→16:29)
--- NOTE | 2021-03-27 03:08 | NUR ---
FIO2 to 100% per desaturation. RN JT aware and notified.
[2021-03-27 05:07] LABS: HEMATOCRIT 39.8 % (31.2-41.9); MEAN CORPUSCULAR HEMOGLOBIN 22.1 uug (24.7-32.8); MEAN CORPUSCULAR VOLUME 70.6 fL (75.5-95.3); PLATELET COUNT (AUTO) 593 K/uL (179-408)
[2021-03-27] MEDS: METHIMAZOLE 5 MG TABLET PO SCH ×3 (05:27→21:32)
[2021-03-27] MEDS: DEXAMETHASONE SOD PHOSPHATE 4 MG INJ IV SCH ×3 (05:27→21:32)
[2021-03-27] MEDS: BLOOD SUGAR DIAGNOSTIC 1 EACH STRIP VI SCH ×4 (05:34→23:25)
[2021-03-27] MEDS: INSULIN REGULAR, HUMAN 300 UNIT/3 ML VIAL SQ PRN ×4 (05:35→23:27)
[2021-03-27 05:45] LABS: CARBON DIOXIDE 29 mmol/L (21-32); CHLORIDE 103 mmol/L (98-107); CREATININE 1.8 mg/dL (0.6-1.3); MAGNESIUM 2.9 mg/dL (1.8-2.4); PHOSPHOROUS 4.8 mg/dL (2.5-4.9); POTASSIUM 4.3 mmol/L (3.5-5.1); UREA NITROGEN, BLOOD 49 mg/dL (7-18)
[2021-03-27 05:50] LABS: GLUCOSE 360 mg/dL (74-106)
--- NOTE | 2021-03-27 06:00 | NUR ---
fingerstick done blood sugar 343 given regular insulin follow ISS .
--- NOTE | 2021-03-27 06:38 | NUR ---
am care done bath patient ,changed soiled linens and gown ,Moore care and oral .
[2021-03-27 06:53] LABS: BAND % (MANUAL) 8 % (0-10); LYMPHOCYTES % (MANUAL) 2 % (20-40); METAMYELOCYTES % 5 % (0-1); MONOCYTES % (MANUAL) 1 % (2-10); MYELOCYTES % 1 % (0-0); NEUTROPHILS % (MANUAL) 83 % (42-75)
[2021-03-27] MEDS: IV NS 1000 ML 1,000 ML IV SCH (07:04)
[2021-03-27 07:54] LABS: ABG BASE EXCESS 0.6 mmol/L; ABG HCO3 27.8 mmol/L; ABG PCO2 55.7 mmHg (35.0-45.0); ABG PH 7.316 (7.350-7.450); ABG PO2 191.9 mmHg (75.0-100.0); ABG SITE RIGHT RADIAL; ABG TOTAL HEMOGLOBIN 13.3 G/dL (12.0-16.0); COHb 0.7 % (0.5-1.5); MetHb 0.1 % (0.0-1.5); O2Hb 98.6 % (94.0-97.0); VENT MODE VENT - A/C; VT, ABG 450 mL
[2021-03-27] MEDS: VITAL AF 1.2 1,000 ML LIQUID GT PRN ×2 (08:00→09:20)
[2021-03-27] MEDS: REMEDY ESSENTIAL ZINC PASTE 113 GM TOP SCH ×2 (08:02→20:52)
[2021-03-27] MEDS: CHOLECALCIFEROL 1,000 UNIT TABLET PO SCH (08:02)
[2021-03-27] MEDS: PANTOPRAZOLE SODIUM 40 MG VIAL IV SCH (08:02)
[2021-03-27] MEDS: CEFTRIAXONE 1 G in IV DEXTROSE 5% 50 ML IV SCH (08:03)
[2021-03-27] MEDS ORDERED: LOSARTAN POTASSIUM 50 MG TABLET PO SCH (09:00)
--- NOTE | 2021-03-27 17:02 | NUR ---
Next of Kin: LILA contacted [facility] ([phone]) from pt's file and spoke to insurance provider Eri who provided pt's family contact information. Per Eri, it is not if pt has a next of kin. Per Eri, pt has 3 children and pt's is . Children: Dary English ([phone]), Roopa Interiano ([phone]), and Larry English (no number listed). LILA provided above information to pt's nurse and nurse notified MD and updated pt's chart.
[2021-03-27 17:06] LABS: COCCIDIOIDES CF SERUM Negative (Neg:<1:2)
--- NOTE | 2021-03-27 17:18 | NUR ---
Contacted Dary English (reported Next of Kin). She stated that her mother is many years ago. Left message for reported son (Gavin Interiano) [phone]).
[2021-03-27] MEDS: LORAZEPAM 2 MG/1 ML VIAL IV PRN (17:46)
[2021-03-27] MEDS: MIDAZOLAM HCL 50 MG in IV NORMAL SALINE 40 ML IV PRN ×2 (18:21→20:54)
[2021-03-27] MEDS ORDERED: MORPHINE SULFATE 2 MG/1 ML DISP.SYRIN IV STA (18:24)
--- NOTE | 2021-03-27 18:25 | NUR ---
Contacted patients sister Leilani Chatterjee.
--- NOTE | 2021-03-27 18:30 | NUR ---
Talked to son Lonny Guy and informed him of patients situation. He is currently in [place] and will be traveling to [place] tomorrow. This filing writer put Willa Cha in contact with him to discuss code status.
--- NOTE | 2021-03-27 19:00 | NUR ---
Report received. Patient is sedated, responsive to stimuli. No signs of pain nor acute distress noted. SR on the monitor, 77. ET 7.5, LL 22 with the vent settings of AC 26, TV 450, PEEP 12, FiO2 100%. NG tube TF of Vital AF @50mls/hr, no gastric residual noted. JACK PICC line with ongoing Levophed @ 0.07mcg/kg/min, Versed @ 2mls/hr, Propofol @ 90mcg/kg/min. Moore catheter draining well to gravity. Will continue to monitor closely.
[2021-03-27] MEDS: INSULIN GLARGINE,HUM 300 UNITS/3 ML CARTRIDGE SQ SCH (20:39)
[2021-03-27] MEDS: ENOXAPARIN SODIUM 80 MG/0.8 ML DISP.SYRIN SQ SCH (20:40)
--- NOTE | 2021-03-27 21:36 | NUR ---
PATIENT ON CONT WRAY VENT WITH 7.5 ET/TUBE IN PLACE AND SECURED, WITH CURRENT VENT SETTINGS, A/C 26, 450ML, PEEP12, 100%, MOSTLY WITH CONTROLLED VENTILATION, PT IS SEDATED, SUCTIONED LIGHT PALE YELL TINGE SECRETIONS, AND SUCTION MOUTH WITH YANKAUER, CHANGE HME, ALL VENT ALARMS GOOD, AMBU BAG AT BEDSIDE, WEANING ORDER @ 06:00 TO DECREASE PEEP 10, ABG @ 08:00. Teresa KAY RCP Addendum: 03/27/21 at 2139 by SOREN KAY RT Amended: Links added.
--- NOTE | 2021-03-27 22:30 | NUR ---
Chase (son) called, report updated. Gave phone number of doctor monitor tech Willa Cha to explain patient's prognosis and updates.
--- NOTE | 2021-03-27 23:15 | NUR ---
stefano oliveira spoke to the nurse , informed of new code status DNR, after speaking to the son oliverio
[2021-03-28] VITALS (92 sets, daily range): BP systolic 91–137; BP diastolic 37–74
[2021-03-28] MEDS: PROPOFOL 100 ML IV PRN ×11 (00:20→23:29)
[2021-03-28] MEDS: MORPHINE SULFATE 2 MG/1 ML DISP.SYRIN IV PRN (04:16)
[2021-03-28] MEDS: BLOOD SUGAR DIAGNOSTIC 1 EACH STRIP VI SCH ×3 (05:17→18:30)
[2021-03-28] MEDS: INSULIN REGULAR, HUMAN 300 UNIT/3 ML VIAL SQ PRN ×3 (05:18→18:35)
[2021-03-28] MEDS: DEXAMETHASONE SOD PHOSPHATE 4 MG INJ IV SCH ×3 (05:21→21:22)
[2021-03-28] MEDS: METHIMAZOLE 5 MG TABLET PO SCH ×3 (05:21→21:22)
[2021-03-28] MEDS: PANTOPRAZOLE ORAL SUSPENSION 40 MG SUSPDR.PKT GT SCH (05:21)
[2021-03-28 05:31] LABS: HEMATOCRIT 39.1 % (31.2-41.9); MEAN CORPUSCULAR HEMOGLOBIN 22.5 uug (24.7-32.8); MEAN CORPUSCULAR VOLUME 71.1 fL (75.5-95.3); PLATELET COUNT (AUTO) 522 K/uL (179-408)
--- NOTE | 2021-03-28 05:45 | NUR ---
Patient desaturated from O2 sat 89% to 62%, suctioning done, RT Harjit made aware.
[2021-03-28] MEDS: FENTANYL CITRATE/PF 1,000 MCG in IV NORMAL SALINE 80 ML IV PRN ×2 (05:58→09:26)
--- NOTE | 2021-03-28 06:00 | NUR ---
RT at bedside. Started Fentanyl @25mcg/hr. Unable to put patient on PEEP 10, O2 sat sustaining on the 60s.
[2021-03-28 06:02] LABS: CARBON DIOXIDE 29 mmol/L (21-32); CHLORIDE 104 mmol/L (98-107); CREATININE 1.5 mg/dL (0.6-1.3); PHOSPHOROUS 4.8 mg/dL (2.5-4.9); POTASSIUM 4.9 mmol/L (3.5-5.1); UREA NITROGEN, BLOOD 53 mg/dL (7-18)
[2021-03-28 06:10] LABS: GLUCOSE 323 mg/dL (74-106)
--- NOTE | 2021-03-28 06:24 | NUR ---
UNABLE TO WEAN PT PEEP 12 REMAINS, DUE TO DECREASE IN SAT 63% , NURSE YAYO NOTIFIED OF SITUATION. Teresa KAY 05:45 Addendum: 03/28/21 at 0625 by SOREN KAY RT Amended: Links added.
--- NOTE | 2021-03-28 06:40 | NUR ---
Lab called and spoke with Mario for critical lab results. Called [facility] exchange for doctor reproduction specialist. Awaiting for callback.
[2021-03-28 06:54] LABS: BAND % (MANUAL) 7 % (0-10); EOSINOPHILS % (MANUAL) 6 % (0-8); LYMPHOCYTES % (MANUAL) 3 % (20-40); METAMYELOCYTES % 2 % (0-1); MONOCYTES % (MANUAL) 1 % (2-10); MYELOCYTES % 1 % (0-0); NEUTROPHILS % (MANUAL) 80 % (42-75)
--- NOTE | 2021-03-28 07:45 | NUR ---
Spoke to Dr. Simpson regarding patient being poorly sedated and is already on propofol fentanyl and versed, and patient remains labored breathing and desaturating to 60s. ordered paralaytic vecoronium.
[2021-03-28 08:10] LABS: ABG BASE EXCESS -0.6 mmol/L; ABG HCO3 25.4 mmol/L; ABG PCO2 47.7 mmHg (35.0-45.0); ABG PH 7.345 (7.350-7.450); ABG PO2 65.5 mmHg (75.0-100.0); ABG SITE RIGHT RADIAL; ABG TOTAL HEMOGLOBIN 12.5 G/dL (12.0-16.0); MetHb 0.3 % (0.0-1.5); O2Hb 91.9 % (94.0-97.0); VENT MODE VENT - A/C; VT, ABG 450 mL
--- NOTE | 2021-03-28 09:00 | NUR ---
unable to reposition patient frequently. patient is not able to tolerate repositioning. patient decompensates and desaturates to 60's during turning or repositioning.
[2021-03-28] MEDS: CEFTRIAXONE 1 G in IV DEXTROSE 5% 50 ML IV SCH (09:14)
[2021-03-28] MEDS: REMEDY ESSENTIAL ZINC PASTE 113 GM TOP SCH ×2 (09:15→21:19)
[2021-03-28] MEDS: INSULIN GLARGINE,HUM 300 UNITS/3 ML CARTRIDGE SQ SCH ×2 (09:24→21:18)
[2021-03-28] MEDS: VECURONIUM BROMIDE 50 MG in IV NORMAL SALINE 50 ML IV PRN ×2 (09:29→11:35)
[2021-03-28] MEDS: CHOLECALCIFEROL 1,000 UNIT TABLET PO SCH (09:41)
[2021-03-28] MEDS: MIDAZOLAM HCL 50 MG in IV NORMAL SALINE 40 ML IV PRN ×2 (11:05→19:03)
[2021-03-28] MEDS: DOXYCYCLINE HYCLATE IV 100 MG in IV DEXTROSE 5% 100 ML IV SCH ×2 (12:03→21:21)
[2021-03-28] MEDS: FLUCONAZOLE 200 MG/NS 100ML IV 200 MG in PREMIXED 1 EACH IV SCH (12:33)
[2021-03-28] MEDS ORDERED: MEROPENEM 0.5 G in IV NORMAL SALINE 50 ML IV SCH (14:00)
[2021-03-28] MEDS: MEROPENEM 1 G in IV NORMAL SALINE 100 ML IV SCH (14:59)
--- NOTE | 2021-03-28 15:55 | NUR ---
Mckenzie from lab to notify that the lab specimen for the Quantiferon- TB gold needs to be redrawn because there was a problem from lab yifan. There will be possible delay in results due to it being redrawn.
--- NOTE | 2021-03-28 17:35 | NUR ---
PT REMAINS INTUBATED ON CMV, PT HAS BEEN SATURATING WELL SINCE PARALYTIC WAS ADMINISTERED. PT DESATURATES TO THE 60'S WITHOUT ADEQUATE SEDATION . ETT REPOSITIONED Q2. SUCTION PRN. WILL CONTINUE TO MONITOR.
--- NOTE | 2021-03-28 18:08 | NUR ---
patient saturating well with paralytic. continued with ventilator settings. tolerating tube feeds at this time.
[2021-03-28] MEDS: NOREPINEPHRINE BITARTRATE 8 MG in IV NORMAL SALINE 242 ML IV PRN (19:04)
[2021-03-28] MEDS: ENOXAPARIN SODIUM 80 MG/0.8 ML DISP.SYRIN SQ SCH (21:19)
--- NOTE | 2021-03-28 21:29 | NUR ---
PATIENT ENDORSED ON WRAY VENT WITH ORDERED SETTINGS OF AC 26, 450, +12, 100% , ORALLY INTUBATED WITH A 7.5, ~22 CM AT THE LIP. TOLERATING CURRENT SETTINGS WELL, VITALS WITHIN RANGE. OXYGENATION IMPROVED WITH NEW PARALYTIC ADMINISTRATION. AIRWAY PATENT AND SECURE, SKIN INTACT. ALARMS ARE ON/AUDILE. WILL CONTINUE TO MONITOR. Addendum: 03/29/21 at 0459 by GAURAV RIZO RT ENDORSEMENT RECEIVED REGARDING SUBCUTANEOUS EMPHYSEMA. NOTED SUBQ CREPITATION IN UPPER CHEST REGION. Addendum: 03/29/21 at 0533 by GAURAV RIZO RT STANDING ORDER REVIEWED: DROP PEEP TO +10 IF SPO2 >94%, ABG IN 2 HOURS. WILL DROP AT 0600, ABG TO FOLLOW IN AM SHIFT 0800.
--- NOTE | 2021-03-28 23:00 | NUR ---
Son: Chase [phone] called for update; given PMD's number.
[2021-03-29] VITALS (95 sets, daily range): BP systolic 87–143; BP diastolic 30–79
[2021-03-29] MEDS: BLOOD SUGAR DIAGNOSTIC 1 EACH STRIP VI SCH ×5 (00:20→23:40)
[2021-03-29] MEDS: INSULIN REGULAR, HUMAN 300 UNIT/3 ML VIAL SQ PRN ×4 (00:21→17:36)
[2021-03-29] MEDS: MEROPENEM 1 G in IV NORMAL SALINE 100 ML IV SCH ×2 (02:28→16:22)
[2021-03-29] MEDS: IV NORMAL SALINE 250 ML IV PRN (02:34)
[2021-03-29] MEDS: PROPOFOL 100 ML IV PRN ×4 (04:44→20:08)
[2021-03-29] MEDS: PANTOPRAZOLE ORAL SUSPENSION 40 MG SUSPDR.PKT GT SCH (05:19)
[2021-03-29] MEDS: METHIMAZOLE 5 MG TABLET PO SCH ×3 (05:19→21:07)
[2021-03-29] MEDS: DEXAMETHASONE SOD PHOSPHATE 4 MG INJ IV SCH ×3 (05:20→21:07)
[2021-03-29 05:43] LABS: HEMATOCRIT 36.1 % (31.2-41.9); MEAN CORPUSCULAR VOLUME 71.1 fL (75.5-95.3); PLATELET COUNT (AUTO) 437 K/uL (179-408)
[2021-03-29 06:00] LABS: CARBON DIOXIDE 28 mmol/L (21-32); CHLORIDE 105 mmol/L (98-107); CREATININE 1.7 mg/dL (0.6-1.3); MAGNESIUM 2.9 mg/dL (1.8-2.4); PHOSPHOROUS 5.3 mg/dL (2.5-4.9); POTASSIUM 5.6 mmol/L (3.5-5.1); UREA NITROGEN, BLOOD 60 mg/dL (7-18)
[2021-03-29 06:10] LABS: GLUCOSE 401 mg/dL (74-106)
[2021-03-29 06:52] LABS: BAND % (MANUAL) 11 % (0-10); LYMPHOCYTES % (MANUAL) 3 % (20-40); MONOCYTES % (MANUAL) 1 % (2-10); NEUTROPHILS % (MANUAL) 85 % (42-75)
[2021-03-29 07:54] LABS: ABG BASE EXCESS -0.9 mmol/L; ABG HCO3 27.6 mmol/L; ABG PCO2 65.4 mmHg (35.0-45.0); ABG PH 7.243 (7.350-7.450); ABG PO2 58.3 mmHg (75.0-100.0); ABG SITE LEFT BRACHIAL; COHb 0.7 % (0.5-1.5); MetHb 0.2 % (0.0-1.5); O2Hb 87.1 % (94.0-97.0); VENT MODE VENT - A/C; VT, ABG 450 mL
[2021-03-29] MEDS: DOXYCYCLINE HYCLATE IV 100 MG in IV DEXTROSE 5% 100 ML IV SCH ×2 (08:02→20:25)
[2021-03-29] MEDS: REMEDY ESSENTIAL ZINC PASTE 113 GM TOP SCH ×2 (08:02→20:25)
[2021-03-29] MEDS: INSULIN GLARGINE,HUM 300 UNITS/3 ML CARTRIDGE SQ SCH ×2 (08:03→20:44)
[2021-03-29] MEDS: CHOLECALCIFEROL 1,000 UNIT TABLET PO SCH (08:03)
[2021-03-29] MEDS: VITAL AF 1.2 1,000 ML LIQUID GT PRN (08:08)
[2021-03-29] MEDS: VECURONIUM BROMIDE 50 MG in IV NORMAL SALINE 50 ML IV PRN (08:48)
[2021-03-29] MEDS: FENTANYL CITRATE/PF 1,000 MCG in IV NORMAL SALINE 80 ML IV PRN (08:49)
[2021-03-29] MEDS: MIDAZOLAM HCL 50 MG in IV NORMAL SALINE 40 ML IV PRN ×2 (09:06→20:09)
[2021-03-29] MEDS: FLUCONAZOLE 200 MG/NS 100ML IV 200 MG in PREMIXED 1 EACH IV SCH (12:07)
[2021-03-29] MEDS ORDERED: BISACODYL 10 MG SUPP.RECT RC PRN (17:15)
[2021-03-29] MEDS ORDERED: MAGNESIUM HYDROXIDE 30 ML LIQUID UDC PO PRN (17:15)
[2021-03-29] MEDS: DOCUSATE SODIUM 100 MG/10 ML LIQUID UDC GT SCH ×2 (17:38→20:25)
--- NOTE | 2021-03-29 19:00 | NUR ---
Received report. Patient is sedated, responsive to stimuli. NAD. ET 7.5, LL 22 with vent settings of AC 26, TV 450, PEEP 12, FiO2 100%, O2 sat 100%. Oral care and suctioning done every 2 hours. NG TF Vital AF @50mls/hr x 22 hours, no gastric residual noted. Moore catheter draining well to gravity. IV line: JACK PICC line Propofol @50mcg/kg/min, Fentanyl @20mcg/hr, Versed @6mg/hr, Levo @0.06mcg/kg/min, Norcuron @0.2mcg/kg/min, Vecaronium @0.2mcg/kg/min, NS @TKO. Turn and repositioned patient, noticed O2 sat drop down to 80%. O2 sat went up to 95-100%. Will continue to monitor closely. Addendum: 03/30/21 at 0648 by Sandra Hunter RN Patient has only 1 paralytic agent Vecaronium @0.2mcg/kg/min.
--- NOTE | 2021-03-29 20:00 | NUR ---
FiO2 decreased to 90% c/o RT Sandra, tolerating well, O2 sat 100%.
[2021-03-29] MEDS: ENOXAPARIN SODIUM 80 MG/0.8 ML DISP.SYRIN SQ SCH (20:26)
--- NOTE | 2021-03-29 20:26 | NUR ---
PATIENT RECEIVED ORALLY INTUBATED WITH A 7.5 ET TUBE ~ 22CM @ LIP. TOLERATING CURRENT ORDERED VENT SETTING OF AC 26, 450 + 12, 100%. TITRATED FIO2 TO 90%, SPO2 REMAINS 100%. STANDING ORDER TO TITRATE PEEP TO 10+ WITH ABG TO FOLLOW AFTER 2 HOURS. WILL ATTEMPT IN AM. ALARM PARAMETERS ASSESSED, ON AND AUDIBLE. WILL CONTINUE TO MONITOR. Addendum: 03/30/21 at 0609 by GAURAV RIZO RT 0600 TITRATED PEEP TO +10 PER MD ORDER, ANG TO FOLLOW IN 2 HOURS (0800). WILL ENDORSE TO AM SHIFT.
[2021-03-30] VITALS (96 sets, daily range): BP systolic 78–142; BP diastolic 34–72
[2021-03-30] MEDS: INSULIN REGULAR, HUMAN 300 UNIT/3 ML VIAL SQ PRN ×4 (00:11→18:53)
--- NOTE | 2021-03-30 00:30 | NUR ---
AM care done. Linen changed. Repositioned and turned patient. Noticed O2 sat drops to 90%. O2 support from vent given. Suctioned and oral care done. O2 sat increases to >95%. Will continue to monitor closely.
[2021-03-30] MEDS: PROPOFOL 100 ML IV PRN ×6 (00:50→21:25)
[2021-03-30] MEDS: MEROPENEM 1 G in IV NORMAL SALINE 100 ML IV SCH ×2 (02:08→14:14)
[2021-03-30] MEDS: NOREPINEPHRINE BITARTRATE 8 MG in IV NORMAL SALINE 242 ML IV PRN (02:17)
[2021-03-30] MEDS: METHIMAZOLE 5 MG TABLET PO SCH ×3 (05:02→21:14)
[2021-03-30] MEDS: PANTOPRAZOLE ORAL SUSPENSION 40 MG SUSPDR.PKT GT SCH (05:03)
[2021-03-30] MEDS: DEXAMETHASONE SOD PHOSPHATE 4 MG INJ IV SCH ×3 (05:03→21:14)
[2021-03-30] MEDS: BLOOD SUGAR DIAGNOSTIC 1 EACH STRIP VI SCH ×4 (05:03→20:49)
[2021-03-30 05:05] LABS: MEAN CORPUSCULAR VOLUME 71.6 fL (75.5-95.3); PLATELET COUNT (AUTO) 359 K/uL (179-408)
[2021-03-30 05:07] LABS: HEMATOCRIT 35.7 % (31.2-41.9); MEAN CORPUSCULAR HEMOGLOBIN 22.3 uug (24.7-32.8)
[2021-03-30 05:50] LABS: CARBON DIOXIDE 29 mmol/L (21-32); CHLORIDE 106 mmol/L (98-107); CREATININE 1.6 mg/dL (0.6-1.3); GLUCOSE 248 mg/dL (74-106); POTASSIUM 5.8 mmol/L (3.5-5.1); TRIGLYCERIDES 405 MG/DL (30-150); UREA NITROGEN, BLOOD 71 mg/dL (7-18)
--- NOTE | 2021-03-30 06:00 | NUR ---
PEEP decreased to 10 c/o RT Sandra, tolerating well. Will continue to monitor closely.
[2021-03-30 06:06] LABS: BAND % (MANUAL) 5 % (0-10); LYMPHOCYTES % (MANUAL) 5 % (20-40); METAMYELOCYTES % 3 % (0-1); MONOCYTES % (MANUAL) 1 % (2-10); NEUTROPHILS % (MANUAL) 86 % (42-75)
--- NOTE | 2021-03-30 06:27 | NUR ---
Seen and examined by Dr Tavares, report given, with new orders.
--- NOTE | 2021-03-30 06:35 | NUR ---
Left patient sedated. NAD. ET 7.5, LL 22 with vent settings of AC 26, TV 450, PEEP 10, FiO2 100%, O2 sat 100%. NG TF Vital AF @50mls/hr x 22 hours off [id number]. IV line: JACK PICC line Propofol @50mcg/kg/min, Fentanyl @20mcg/hr, Versed @6mg/hr, Levo @0.02mcg/kg/min, Norcuron @0.2mcg/kg/min, NS @TKO. Moore catheter intact and draining well. Endorsed.
[2021-03-30] MEDS ORDERED: SODIUM POLYSTYRENE SULFONATE 15 G/60 ML LIQUID UDC NG ONE (06:45)
[2021-03-30] MEDS ORDERED: LACTULOSE 20 G/30 ML LIQUID UDC NG ONE (06:45)
[2021-03-30] MEDS: MIDAZOLAM HCL 50 MG in IV NORMAL SALINE 40 ML IV PRN ×2 (07:28→17:46)
--- NOTE | 2021-03-30 07:45 | NUR ---
Received report from overnight caregiver nurse. Patient is with ETT to vent a/c mode and breathing over the vent. Checked TOF at level 6 patient is 4/4. Sinus rhythm on the monitor, all extremities are edematous. Moore catheter intact. patient is saturated with diarrhea. Upon cleaning patient, desaturation noted down to 60%. Patient became significantly tachypneic RR 36 breaths per minute. Adjustments made to sedation and paralytic. Patient saturation regained.
[2021-03-30] MEDS: DOCUSATE SODIUM 100 MG/10 ML LIQUID UDC GT SCH ×2 (08:00→20:28)
[2021-03-30] MEDS: DOXYCYCLINE HYCLATE IV 100 MG in IV DEXTROSE 5% 100 ML IV SCH ×2 (08:01→20:28)
[2021-03-30] MEDS: POLYVINYL ALCOHOL OPHT DROPS 15 ML BOTTLE EACHEYE SCH ×2 (08:01→17:41)
[2021-03-30] MEDS: CHOLECALCIFEROL 1,000 UNIT TABLET PO SCH (08:01)
[2021-03-30 08:05] LABS: ABG BASE EXCESS 0.8 mmol/L; ABG HCO3 27.1 mmol/L; ABG PH 7.343 (7.350-7.450); ABG SITE LEFT RADIAL; ABG TOTAL HEMOGLOBIN 11.3 G/dL (12.0-16.0); COHb 0.3 % (0.5-1.5); MetHb 0.4 % (0.0-1.5); O2Hb 97.6 % (94.0-97.0); VENT MODE VENT - A/C; VT, ABG 450 mL
[2021-03-30] MEDS: INSULIN GLARGINE,HUM 300 UNITS/3 ML CARTRIDGE SQ SCH ×2 (08:08→20:47)
[2021-03-30] MEDS: REMEDY ESSENTIAL ZINC PASTE 113 GM TOP SCH ×2 (08:09→20:30)
[2021-03-30] MEDS: FENTANYL CITRATE/PF 1,000 MCG in IV NORMAL SALINE 80 ML IV PRN (08:23)
[2021-03-30] MEDS: VECURONIUM BROMIDE 50 MG in IV NORMAL SALINE 50 ML IV PRN (08:24)
[2021-03-30] MEDS: ACETAMINOPHEN 325 MG TABLET PO PRN (09:07)
--- NOTE | 2021-03-30 09:18 | NUR ---
Patient has fever, notified Willa Barrios no new orders received.
--- NOTE | 2021-03-30 10:45 | NUR ---
Patient noted to have another diarrhea episode with continuous fluid stool leakage. Flexiseal inserted with browl watery stool noted in tube on insertion.
--- NOTE | 2021-03-30 11:24 | NUR ---
Clinical Social Work Note LILA spoke with patient's son, Chase Oneil [phone], to help support with information on mortuaries. Mr. Oneil stated that he did not need assistance with that and he has been working with a mortuary. Mr. Oneil stated that he will be having patient cremated and well be laying her to rest at [facility] ([address] [place] [address] ). Mr. Oneil inquired if LILA knew if patient's 's [facility] benefits will cover her cremation costs. LILA informed Mr. Oneil that she will research and inform him later today. Plan: LILA will call the [facility] to gather information.
[2021-03-30] MEDS: FLUCONAZOLE 200 MG/NS 100ML IV 200 MG in PREMIXED 1 EACH IV SCH (12:06)
--- NOTE | 2021-03-30 12:45 | NUR ---
Clinical Social Work Note LILA spoke with Natalee ([phone]) at the [place] [employer] department to inquire of benefits for patient. Natalee stated that patient's husbands benefits do not cover cremation cost, but if family would like patient can be buried at a [facility] at no cost. Plan: LILA will provide patient's son with the following information.
--- NOTE | 2021-03-30 13:41 | NUR ---
Clinical Social Work Note LILA spoke with patient's son Chase Oneil [phone], to discuss information gathered from the [place]. LILA informed Mr. Oneil that the [facility] benefits does not cover cremation, but patient is eligible to be put to rest at a [facility] at no cost. Mr. Oneil stated that he is going to proceed with cremating patient at [facility] ([address] [place] [address] ). Mr. Oneil stated that he will be using a home by the name of [facility] ([address] [place] [address] ). Mr. Oneil requested for his to speak on his behalf in the instance that he can not. provided his 's contact, Tash Oneil [phone]. Plan: SW will continue to support family as needed.
[2021-03-30] MEDS: PANTOPRAZOLE SODIUM 40 MG VIAL IV SCH ×2 (14:13→20:28)
[2021-03-30] MEDS ORDERED: ACETAMINOPHEN 650 MG/20 ML UDC- SA PATIENTS-PAIN ONLY GT PRN (16:30)
[2021-03-30] MEDS: ACETAMINOPHEN 650 MG/20.3 ML LIQUID UDC GT PRN (16:57)
--- NOTE | 2021-03-30 19:10 | NUR ---
received patient sedated on vent setting ac 26 , tv 450 , p10 , 100 fio2 % , tf via ngt , 50 ml placement checked and 30 residual noted , on levophed 0.04 mcg , propofol at 70 mcg , versed at 7mg , vecuronium at 0.4 mcg , fentanyl at 50 mcg , rectal tube and picc line iv intact , no fever noted
--- NOTE | 2021-03-30 19:35 | NUR ---
Pt rec'd on Viasys Cottrell on settings of A/C 26, VT 450, PEEP +10 and FIO2-100%. No resp. distress noted and pt appears to be tolerating settings well. 7.5 ETT is patent and secure at approx. 22cm at the lipline. Pt to be monitored throughout the shift and PRN SX. Cottrell alarm parameters have been checked and remain audible. BVM is at bedside.
--- NOTE | 2021-03-30 20:00 | NUR ---
subcutaneous emphysema felt on the chest , suctioned wiht small amout of secretions orally
[2021-03-30] MEDS: ENOXAPARIN SODIUM 80 MG/0.8 ML DISP.SYRIN SQ SCH (20:29)
--- NOTE | 2021-03-30 21:00 | NUR ---
kavin id is here to see patient
[2021-03-31] VITALS (94 sets, daily range): BP systolic 76–171; BP diastolic 31–82
[2021-03-31] MEDS: PROPOFOL 100 ML IV PRN ×7 (01:02→23:58)
[2021-03-31] MEDS: MEROPENEM 1 G in IV NORMAL SALINE 100 ML IV SCH ×2 (02:14→16:08)
[2021-03-31] MEDS: MIDAZOLAM HCL 50 MG in IV NORMAL SALINE 40 ML IV PRN ×3 (02:15→20:23)
--- NOTE | 2021-03-31 04:00 | NUR ---
small amout of blood noted on the mouth when patient was turned
[2021-03-31] MEDS: METHIMAZOLE 5 MG TABLET PO SCH ×3 (05:23→21:25)
[2021-03-31] MEDS: DEXAMETHASONE SOD PHOSPHATE 4 MG INJ IV SCH ×3 (05:31→21:25)
[2021-03-31] MEDS: BLOOD SUGAR DIAGNOSTIC 1 EACH STRIP VI SCH ×4 (05:58→23:44)
[2021-03-31] MEDS: INSULIN REGULAR, HUMAN 300 UNIT/3 ML VIAL SQ PRN ×4 (06:00→23:45)
[2021-03-31 06:07] LABS: HEMATOCRIT 33.1 % (31.2-41.9); MEAN CORPUSCULAR HEMOGLOBIN 22.5 uug (24.7-32.8); MEAN CORPUSCULAR VOLUME 70.7 fL (75.5-95.3); PLATELET COUNT (AUTO) 296 K/uL (179-408)
--- NOTE | 2021-03-31 06:26 | NUR ---
patient is sedated with propofol at 70 mcg , versed a t7 mg , fentanyn at 50 mvg , levophed at 0.04, vecuronium at 0.4 mcg , train of four at level 7 / , tf is stopped as per order of x 22 hours , no residual noted at this time , picc lie and dave and rectal tube intact , no fever noted , cxr done Addendum: 04/01/21 at 0248 by NIRU MCCOY RN no more blood noted when suctioned in the mouth and ett , oral treatment given
[2021-03-31 06:50] LABS: ALANINE AMINOTRANSFERASE 63 U/L (14-59); ALKALINE PHOSPHATASE 104 U/L (50-136); ASPARTATE AMINOTRANSFERASE 37 U/L (15-37); BILIRUBIN,DIRECT 0.3 mg/dL (0.0-0.2); BILIRUBIN,TOTAL 0.4 mg/dL (0.2-1.0); CARBON DIOXIDE 29 mmol/L (21-32); CHLORIDE 109 mmol/L (98-107); CREATININE 1.5 mg/dL (0.6-1.3); FERRITIN 1379 ng/mL (8-252); GLUCOSE 260 mg/dL (74-106); LACTATE DEHYDROGENASE 560 U/L (81-234); MAGNESIUM 3.1 mg/dL (1.8-2.4); POTASSIUM 4.9 mmol/L (3.5-5.1); TOTAL PROTEIN, SERUM 4.8 g/dL (6.4-8.2)
[2021-03-31 07:07] LABS: UREA NITROGEN, BLOOD 82 mg/dL (7-18)
[2021-03-31 07:15] LABS: PHOSPHOROUS 6.5 mg/dL (2.5-4.9)
[2021-03-31] MEDS: PANTOPRAZOLE SODIUM 40 MG VIAL IV SCH ×2 (08:01→21:24)
[2021-03-31] MEDS: DOCUSATE SODIUM 100 MG/10 ML LIQUID UDC GT SCH ×2 (08:01→21:25)
[2021-03-31] MEDS: CHOLECALCIFEROL 1,000 UNIT TABLET PO SCH (08:01)
[2021-03-31] MEDS: DOXYCYCLINE HYCLATE IV 100 MG in IV DEXTROSE 5% 100 ML IV SCH ×2 (08:02→21:24)
[2021-03-31] MEDS: VITAL AF 1.2 1,000 ML LIQUID GT PRN (08:10)
[2021-03-31] MEDS: INSULIN GLARGINE,HUM 300 UNITS/3 ML CARTRIDGE SQ SCH ×2 (08:12→21:57)
[2021-03-31] MEDS: POLYVINYL ALCOHOL OPHT DROPS 15 ML BOTTLE EACHEYE SCH ×2 (08:13→16:54)
[2021-03-31] MEDS: REMEDY ESSENTIAL ZINC PASTE 113 GM TOP SCH ×2 (08:13→21:29)
[2021-03-31 08:39] LABS: ABG BASE EXCESS -1.8 mmol/L; ABG HCO3 26.1 mmol/L; ABG PCO2 59.5 mmHg (35.0-45.0); ABG SITE LEFT BRACHIAL; ABG TOTAL HEMOGLOBIN 11.6 G/dL (12.0-16.0); COHb 0.8 % (0.5-1.5); MetHb 0.2 % (0.0-1.5); O2Hb 96.9 % (94.0-97.0); VENT MODE VENT - A/C; VT, ABG 450 mL
[2021-03-31] MEDS: VECURONIUM BROMIDE 50 MG in IV NORMAL SALINE 50 ML IV PRN (08:56)
[2021-03-31] MEDS: MIDODRINE HCL 5 MG TABLET PO SCH ×3 (08:56→21:59)
[2021-03-31] MEDS ORDERED: MIDODRINE HCL 5 MG TABLET PO SCH (09:00)
[2021-03-31] MEDS: FENTANYL CITRATE/PF 1,000 MCG in IV NORMAL SALINE 80 ML IV PRN (11:04)
[2021-03-31] MEDS: IV NORMAL SALINE 250 ML IV PRN (11:33)
[2021-03-31] MEDS: FLUCONAZOLE 200 MG/NS 100ML IV 200 MG in PREMIXED 1 EACH IV SCH (11:59)
--- NOTE | 2021-03-31 18:18 | NUR ---
Patient continues of sedation and ventilator with paralytics. Patient desaturates to 70% when laying flat on 100% oxygen and poorly tolerates turning and repositioning. Patient has been off of levophed the majority of the day and needed to have it restarted in the evening at a very low dose despite midodrine administration. Patients urine output has declined, and stool is still liquid in nature with flexiseal. Patient is tolerating tube feeding with minimal residual. Patients skin remains free from wounds and significant edema is noted in extrmities. Frequent repositioning and bathing provided to patient.
--- NOTE | 2021-03-31 19:10 | NUR ---
received patient sedated , vent settings of ac 26 tv 450 p 10 fio2 100 % , tf 40 ml , placement verified , no residual at this time , levophed at 0.02 mcg , propofol at 70 mcg , versed at 7 mg , vecuronium at 0. 4 mcg , fentanyl at 50 mcg , picc line , miguel , intact , rectal tube and dave draining , no fever noted , sr
--- NOTE | 2021-03-31 19:45 | NUR ---
subcutaneous emphysema felt on the bilateral chest , suctioned with small amout of secretions orally,
[2021-03-31] MEDS: ENOXAPARIN SODIUM 80 MG/0.8 ML DISP.SYRIN SQ SCH (21:27)
[2021-04-01] VITALS (49 sets, daily range): BP systolic 86–178; BP diastolic 41–78
[2021-04-01] MEDS: NOREPINEPHRINE BITARTRATE 8 MG in IV NORMAL SALINE 242 ML IV PRN (01:31)
[2021-04-01] MEDS: MEROPENEM 1 G in IV NORMAL SALINE 100 ML IV SCH ×2 (02:53→16:12)
[2021-04-01] MEDS: PROPOFOL 100 ML IV PRN ×2 (03:34→07:00)
--- NOTE | 2021-04-01 05:00 | NUR ---
bladder scan used 278 ml scanned
[2021-04-01 05:11] LABS: HEMATOCRIT 32.7 % (31.2-41.9); MEAN CORPUSCULAR HEMOGLOBIN 22.9 uug (24.7-32.8); MEAN CORPUSCULAR VOLUME 70.2 fL (75.5-95.3); PLATELET COUNT (AUTO) 278 K/uL (179-408)
[2021-04-01] MEDS: MIDODRINE HCL 5 MG TABLET PO SCH ×3 (05:20→21:05)
[2021-04-01] MEDS: METHIMAZOLE 5 MG TABLET PO SCH ×3 (05:21→21:05)
[2021-04-01] MEDS: DEXAMETHASONE SOD PHOSPHATE 4 MG INJ IV SCH ×2 (05:21→20:02)
[2021-04-01] MEDS ORDERED: VITAL AF 1.2 1,000 ML LIQUID GT PRN (05:27)
[2021-04-01] MEDS: MIDAZOLAM HCL 50 MG in IV NORMAL SALINE 40 ML IV PRN ×2 (05:52→14:46)
[2021-04-01] MEDS: BLOOD SUGAR DIAGNOSTIC 1 EACH STRIP VI SCH ×4 (05:58→23:11)
[2021-04-01] MEDS: INSULIN REGULAR, HUMAN 300 UNIT/3 ML VIAL SQ PRN ×4 (06:00→23:11)
[2021-04-01 06:07] LABS: ALANINE AMINOTRANSFERASE 46 U/L (14-59); ALKALINE PHOSPHATASE 106 U/L (50-136); ASPARTATE AMINOTRANSFERASE 40 U/L (15-37); BILIRUBIN,TOTAL 0.4 mg/dL (0.2-1.0); CARBON DIOXIDE 29 mmol/L (21-32); CHLORIDE 109 mmol/L (98-107); CREATININE 1.5 mg/dL (0.6-1.3); GLUCOSE 194 mg/dL (74-106); PHOSPHOROUS 7.5 mg/dL (2.5-4.9); POTASSIUM 4.8 mmol/L (3.5-5.1); TOTAL PROTEIN, SERUM 4.8 g/dL (6.4-8.2)
[2021-04-01 06:15] LABS: UREA NITROGEN, BLOOD 96 mg/dL (7-18)
[2021-04-01 06:59] LABS: MAGNESIUM 3.1 mg/dL (1.8-2.4)
--- NOTE | 2021-04-01 07:00 | NUR ---
Received pt. on Ventilator A/C26, TV450 Peep+10 and 100% FIO2. ETT 7.5 LL 22. Patient adequately sedated, and paralized propofol running at 70mcg/kg/min versed 7mg/hr, Fentanyl 50mcgkg/min. and vecuronium. pt's saturation 98-100%. no distress noted. hemodynamically stable and off levophed since 0600 and sustaining sbp above 90's. NG with feeding to be resumed at goal therapy. dave to gravity with bloody output noted. rectal tube with watery stool content. Iv line patent Will continue to monitor.
--- NOTE | 2021-04-01 07:35 | NUR ---
dr benitez notified of pinkish red urine with some small clots , small oral bleeding no order received
[2021-04-01] MEDS: PANTOPRAZOLE SODIUM 40 MG VIAL IV SCH ×2 (08:27→20:02)
[2021-04-01] MEDS: POLYVINYL ALCOHOL OPHT DROPS 15 ML BOTTLE EACHEYE SCH ×2 (08:27→17:19)
[2021-04-01] MEDS: DOCUSATE SODIUM 100 MG/10 ML LIQUID UDC GT SCH ×2 (08:27→20:01)
[2021-04-01] MEDS: CHOLECALCIFEROL 1,000 UNIT TABLET PO SCH (08:27)
[2021-04-01] MEDS: REMEDY ESSENTIAL ZINC PASTE 113 GM TOP SCH ×2 (08:29→20:03)
[2021-04-01] MEDS: DOXYCYCLINE HYCLATE IV 100 MG in IV DEXTROSE 5% 100 ML IV SCH ×2 (08:30→20:02)
[2021-04-01] MEDS: INSULIN GLARGINE,HUM 300 UNITS/3 ML CARTRIDGE SQ SCH ×2 (08:35→21:17)
[2021-04-01 09:12] LABS: ABG BASE EXCESS -1.1 mmol/L; ABG PCO2 63.8 mmHg (35.0-45.0); ABG PH 7.245 (7.350-7.450); ABG PO2 190.8 mmHg (75.0-100.0); ABG SITE LEFT RADIAL; ABG TOTAL HEMOGLOBIN 10.8 G/dL (12.0-16.0); COHb 0.4 % (0.5-1.5); MetHb 0.2 % (0.0-1.5); O2Hb 98.6 % (94.0-97.0); VENT MODE VENT - A/C; VT, ABG 450 mL
[2021-04-01] MEDS: VECURONIUM BROMIDE 50 MG in IV NORMAL SALINE 50 ML IV PRN (09:22)
[2021-04-01] MEDS: FENTANYL CITRATE/PF 1,000 MCG in IV NORMAL SALINE 80 ML IV PRN (10:18)
--- NOTE | 2021-04-01 11:16 | NUR ---
Pulmonary services Dr. Gonzalez in the unit to see and examine pt. report given and stand by orders to start precedex drip if needed received. At this point aware of high triglycerides and propofol is been titrated down.
[2021-04-01] MEDS: FLUCONAZOLE 200 MG/NS 100ML IV 200 MG in PREMIXED 1 EACH IV SCH (13:25)
--- NOTE | 2021-04-01 16:00 | NUR ---
Attending Irene Ramirez in the unit to follow up on pt. report given and also informed of earliest request from pt's son to be called and updated on care plan.
[2021-04-01 18:24] LABS: BAND % (MANUAL) 3 % (0-10); LYMPHOCYTES % (MANUAL) 6 % (20-40); MONOCYTES % (MANUAL) 2 % (2-10); MYELOCYTES % 1 % (0-0); NEUTROPHILS % (MANUAL) 88 % (42-75)
--- NOTE | 2021-04-01 19:00 | NUR ---
Received report. Patient is sedated, NAD, ET 7.5 LL 22 with the vent settings of AC 26, TV 450, PEEP 10, FiO2 100%, O2 sat 96%. NSR on the monitor, 64bpm. Suctioning and oral care done. NG tube TF Vital AF @40mls/hr x 22hr, no gastric residual noted. JACK PICC line Fentanyl @95mcg/hr, Versed @7mg/hr, Norcurium @ 0.4mcg/kg/min, NS @ TKO, Moore catheter draining well to gravity. Flexiseal intact. Will continue to monitor closely.
[2021-04-01] MEDS ORDERED: PRECEDEX 400 MCG/100 ML BOTTLE 100 ML IV PRN (19:15)
[2021-04-01] MEDS: ENOXAPARIN SODIUM 80 MG/0.8 ML DISP.SYRIN SQ SCH (20:03)
[2021-04-02] VITALS (37 sets, daily range): BP systolic 115–178; BP diastolic 47–87
--- NOTE | 2021-04-02 | NUR ---
am care done ,bath patient changed soiled linens and gown .z guard applied to right and left groin and sacral area cover with Mepilex .irrigated rectal tube with liquid stool . f/c done and perineal care done . offloaded back bue and ble with pillows scds used to lower bilateral leg .gentle oral care done with minimal bleeding noted around the mouth .fingerstick done and follow insulin sliding scale .
[2021-04-02] MEDS: MIDAZOLAM HCL 50 MG in IV NORMAL SALINE 40 ML IV PRN ×3 (00:23→19:36)
[2021-04-02] MEDS: FENTANYL CITRATE/PF 1,000 MCG in IV NORMAL SALINE 80 ML IV PRN ×2 (00:32→15:04)
--- NOTE | 2021-04-02 02:39 | NUR ---
PATIENT ON CONT WRAY VENT WITH 7.[address] AND SECURED WITH ANCHOR FAST, SUCTIONED VERY LIGHT PALE YELL TINGE SECRETIONS, AND ORAL CARE, VENT SETTINGS CURRENT A/C 26, 450ML, PEEP10, FIO2 @ 100%, ALL VENT ALARMS GOOD, NO VENT CHANGES MADE, CHANGE HMEIndira KAY RCP Addendum: 04/02/21 at 0241 by SOREN KAY RT Amended: Links added.
[2021-04-02] MEDS: MEROPENEM 1 G in IV NORMAL SALINE 100 ML IV SCH ×2 (03:10→14:26)
--- NOTE | 2021-04-02 04:00 | NUR ---
AM care done. Linen changed. Turn and repositioned patient, O2 sat desaturates to 85%. O2 support given from vent, suctioned done. O2 sat went up back to 98%. Will continue to monitor closely.
[2021-04-02] MEDS: BLOOD SUGAR DIAGNOSTIC 1 EACH STRIP VI SCH ×4 (05:15→23:36)
[2021-04-02 05:16] LABS: MEAN CORPUSCULAR HEMOGLOBIN 22.2 uug (24.7-32.8); MEAN CORPUSCULAR VOLUME 70.4 fL (75.5-95.3); PLATELET COUNT (AUTO) 239 K/uL (179-408)
[2021-04-02] MEDS: INSULIN REGULAR, HUMAN 300 UNIT/3 ML VIAL SQ PRN ×4 (05:16→23:37)
[2021-04-02 05:36] LABS: CARBON DIOXIDE 30 mmol/L (21-32); CHLORIDE 111 mmol/L (98-107); CREATININE 1.4 mg/dL (0.6-1.3); GLUCOSE 159 mg/dL (74-106); MAGNESIUM 3.2 mg/dL (1.8-2.4); PHOSPHOROUS 6.9 mg/dL (2.5-4.9); POTASSIUM 5.4 mmol/L (3.5-5.1)
[2021-04-02] MEDS: MIDODRINE HCL 5 MG TABLET PO SCH ×3 (05:37→21:08)
[2021-04-02] MEDS: METHIMAZOLE 5 MG TABLET PO SCH ×3 (05:37→21:08)
[2021-04-02 05:45] LABS: UREA NITROGEN, BLOOD 112 mg/dL (7-18)
--- NOTE | 2021-04-02 06:47 | NUR ---
Left patient sedated, with the same vent settings, and IV fluids running. NG tube off [id number]. VSS, NAD. Endorsed.
[2021-04-02 08:00] LABS: ABG BASE EXCESS 2.8 mmol/L; ABG HCO3 30.2 mmol/L; ABG PCO2 62.3 mmHg (35.0-45.0); ABG PH 7.303 (7.350-7.450); ABG PO2 138.7 mmHg (75.0-100.0); ABG SITE LEFT RADIAL; ABG TOTAL HEMOGLOBIN 10.2 G/dL (12.0-16.0); COHb 0.4 % (0.5-1.5); MetHb 0.3 % (0.0-1.5); O2Hb 97.7 % (94.0-97.0); VENT MODE VENT - A/C; VT, ABG 450 mL
[2021-04-02] MEDS: VITAL AF 1.2 1,000 ML LIQUID GT PRN ×2 (08:00→08:20)
[2021-04-02] MEDS: DOXYCYCLINE HYCLATE IV 100 MG in IV DEXTROSE 5% 100 ML IV SCH ×2 (08:21→20:21)
[2021-04-02] MEDS: DOCUSATE SODIUM 100 MG/10 ML LIQUID UDC GT SCH ×2 (08:21→20:19)
[2021-04-02] MEDS: PANTOPRAZOLE SODIUM 40 MG VIAL IV SCH ×2 (08:22→20:17)
[2021-04-02] MEDS: DEXAMETHASONE SOD PHOSPHATE 4 MG INJ IV SCH ×2 (08:22→20:19)
[2021-04-02] MEDS: CHOLECALCIFEROL 1,000 UNIT TABLET PO SCH (08:22)
[2021-04-02] MEDS: REMEDY ESSENTIAL ZINC PASTE 113 GM TOP SCH ×2 (08:24→20:53)
[2021-04-02] MEDS: POLYVINYL ALCOHOL OPHT DROPS 15 ML BOTTLE EACHEYE SCH ×2 (08:24→17:57)
[2021-04-02] MEDS: VECURONIUM BROMIDE 50 MG in IV NORMAL SALINE 50 ML IV PRN (08:25)
[2021-04-02] MEDS: INSULIN GLARGINE,HUM 300 UNITS/3 ML CARTRIDGE SQ SCH ×2 (08:28→20:53)
[2021-04-02] MEDS: FLUCONAZOLE 200 MG/NS 100ML IV 200 MG in PREMIXED 1 EACH IV SCH (12:32)
--- NOTE | 2021-04-02 20:00 | NUR ---
vented ETT =7.5/22 cm ac26/450/peep of 10 fio2 80% ,tolerating vent settings . rr 26 saturation 100%.sedated and on paralytic . RIGHT piccline : fentanyl drip at 100 mcg/hr versed drip at 7 mg/hr Norcuron drip at 0.4 mcg/kg/min normal saline at tko at 10 ml/hr . NGT with tf vital AF AT 40 ml/hr goal reach for 22 hours . F/C clear yellowish urine . RECTAL TUBE with + liquid stool .
[2021-04-02] MEDS: ENOXAPARIN SODIUM 80 MG/0.8 ML DISP.SYRIN SQ SCH (20:25)
[2021-04-02] MEDS: IV NORMAL SALINE 250 ML IV PRN (20:30)
--- NOTE | 2021-04-02 22:30 | NUR ---
turned and reposition patient ,suction via mouth and via ett . hob up .
[2021-04-03] VITALS (43 sets, daily range): BP systolic 102–177; BP diastolic 46–76
--- NOTE | 2021-04-03 00:23 | NUR ---
PATIENT ON CONT WRAY VENT WITH 7.5 ET/TUBE IN PLACE , 22CM LIP LINE , ANCHOR FAST MOVE Q2 HOURS X 6 , SUCTIONED SLIGHTLY BLOODY TINGE SECRETIONS X 3, AND ORAL CARE, ALL VENT ALARMS GOOD , VENT SETTINGS, A/C 26, 450ML, PEEP 10, FIO2 @ 80%, PT CAN DE SAT AT TIMES, VENT PLUGGED INTO RED WALL OUTLET . Teresa ESPINOSAP Addendum: 04/03/21 at 0031 by SOREN KAY RT Amended: Links added.
[2021-04-03] MEDS: MEROPENEM 1 G in IV NORMAL SALINE 100 ML IV SCH ×2 (03:30→14:14)
[2021-04-03] MEDS: FENTANYL CITRATE/PF 1,000 MCG in IV NORMAL SALINE 80 ML IV PRN ×2 (03:31→14:58)
[2021-04-03] MEDS: MIDAZOLAM HCL 50 MG in IV NORMAL SALINE 40 ML IV PRN ×3 (04:22→22:03)
[2021-04-03] MEDS: BLOOD SUGAR DIAGNOSTIC 1 EACH STRIP VI SCH ×4 (05:11→23:47)
[2021-04-03] MEDS: INSULIN REGULAR, HUMAN 300 UNIT/3 ML VIAL SQ PRN ×2 (05:12→23:48)
[2021-04-03] MEDS: MIDODRINE HCL 5 MG TABLET PO SCH ×3 (05:14→21:30)
[2021-04-03] MEDS: METHIMAZOLE 5 MG TABLET PO SCH ×3 (05:14→21:30)
[2021-04-03 05:43] LABS: CREATININE 1.2 mg/dL (0.6-1.3); MAGNESIUM 3.2 mg/dL (1.8-2.4); PHOSPHOROUS 5.6 mg/dL (2.5-4.9); POTASSIUM 5.4 mmol/L (3.5-5.1)
[2021-04-03 05:51] LABS: HEMATOCRIT 29.7 % (31.2-41.9); MEAN CORPUSCULAR VOLUME 69.6 fL (75.5-95.3); PLATELET COUNT (AUTO) 199 K/uL (179-408)
--- NOTE | 2021-04-03 06:00 | NUR ---
fingerstick done and follow insulin sliding scale .
[2021-04-03 07:52] LABS: ABG BASE EXCESS 1.6 mmol/L; ABG HCO3 27.4 mmol/L; ABG PCO2 48.9 mmHg (35.0-45.0); ABG PH 7.366 (7.350-7.450); ABG PO2 97.6 mmHg (75.0-100.0); ABG SITE RIGHT RADIAL; ABG TOTAL HEMOGLOBIN 9.9 G/dL (12.0-16.0); COHb 0.8 % (0.5-1.5); MetHb 0.2 % (0.0-1.5); VENT MODE VENT - A/C; VT, ABG 450 mL
[2021-04-03] MEDS: VITAL AF 1.2 1,000 ML LIQUID GT PRN ×2 (08:00→08:16)
[2021-04-03] MEDS: DOXYCYCLINE HYCLATE IV 100 MG in IV DEXTROSE 5% 100 ML IV SCH ×2 (08:04→20:26)
[2021-04-03] MEDS: PANTOPRAZOLE SODIUM 40 MG VIAL IV SCH ×2 (08:04→20:21)
[2021-04-03] MEDS: CHOLECALCIFEROL 1,000 UNIT TABLET PO SCH (08:04)
[2021-04-03] MEDS: DEXAMETHASONE SOD PHOSPHATE 4 MG INJ IV SCH ×2 (08:04→20:22)
[2021-04-03] MEDS: DOCUSATE SODIUM 100 MG/10 ML LIQUID UDC GT SCH ×2 (08:04→20:26)
[2021-04-03] MEDS: REMEDY ESSENTIAL ZINC PASTE 113 GM TOP SCH ×2 (08:06→20:23)
[2021-04-03] MEDS: POLYVINYL ALCOHOL OPHT DROPS 15 ML BOTTLE EACHEYE SCH ×2 (08:06→17:02)
[2021-04-03] MEDS: INSULIN GLARGINE,HUM 300 UNITS/3 ML CARTRIDGE SQ SCH ×2 (08:09→20:19)
--- NOTE | 2021-04-03 11:53 | NUR ---
WOUND CARE CONSULT: REVIEWED CHART, NURSING DOCUMENTATION AND PHOTO WHICH INDICATES OPEN BLISTER TO RT ANTERIOR THIGH, PINK IN COLOR. PT HAS GENERALIZED EDEMA. RECOMMENDATIONS DISCUSSED WITH NURSING STAFF FOR SKIN PROTECTION. [facility]. IN AGREEMENT WITH PLAN OF CARE.
[2021-04-03] MEDS: VECURONIUM BROMIDE 50 MG in IV NORMAL SALINE 50 ML IV PRN (11:54)
[2021-04-03] MEDS: FLUCONAZOLE 200 MG/NS 100ML IV 200 MG in PREMIXED 1 EACH IV SCH (12:02)
--- NOTE | 2021-04-03 16:57 | NUR ---
Contacted Son Perez to notify him that patient continues to have elevated BP 199/85. Received order for Hydralazine 10mg IV q6h prn for sbp >160.
[2021-04-03] MEDS: hydrALAZINE HCL 20 MG/1 ML VIAL IV PRN (17:21)
--- NOTE | 2021-04-03 17:30 | NUR ---
PT REMAINS INTUBATED ON CMV. DURING SHIFT FIO2 TITRATED TO 70%. PT IS TOLERATING VENT SETTINGS WELL, NO RESP. DISTRESS NOTED. ETT REPOSITIONED Q2. SUCTION PRN. WILL CONTINUE TO MONITOR.
[2021-04-03] MEDS: MORPHINE SULFATE 2 MG/1 ML DISP.SYRIN IV PRN (18:11)
--- NOTE | 2021-04-03 19:00 | NUR ---
called :NEISHA cardiology c/o patients bp 177/73 hr 130 with order to give x1 morphine 4 mg IVP .
[2021-04-03] MEDS ORDERED: MORPHINE SULFATE 20 MG/1 ML ORAL LIQ. PO PRN (19:30)
[2021-04-03] MEDS ORDERED: MORPHINE SULFATE 4 MG/1 ML DISP.SYRIN IV ONE (19:30)
--- NOTE | 2021-04-03 20:00 | NUR ---
RESPIRATORY THERAPIST INFORMED C/O SATURATION 90% ,PATIENT ON VENT AC 26/450/PEEP 10 FIO2 70%, PER DAY SHIFT PATIENT WAS JUST REPOSITION .RESPIRATORY THERAPIST PERFORM ORAL CARE TO PATIENT AND CHECK ON VENT SETTINGS AND WILL MONITOR PATIENT SINCE HE JUST REPOSITION .
[2021-04-03] MEDS: ENOXAPARIN SODIUM 80 MG/0.8 ML DISP.SYRIN SQ SCH (20:18)
[2021-04-03] MEDS: IV NORMAL SALINE 250 ML IV PRN (20:30)
--- NOTE | 2021-04-03 21:00 | NUR ---
NOLAN DANIELS CAME AND UPDATED WITH PATIENT STATUS AND CONDITION .
[2021-04-04] VITALS (66 sets, daily range): BP systolic 107–200; BP diastolic 52–87
[2021-04-04] MEDS: FENTANYL CITRATE/PF 1,000 MCG in IV NORMAL SALINE 80 ML IV PRN ×2 (01:42→14:26)
[2021-04-04] MEDS: MEROPENEM 1 G in IV NORMAL SALINE 100 ML IV SCH (03:52)
[2021-04-04] MEDS: MIDODRINE HCL 5 MG TABLET PO SCH (05:04)
[2021-04-04] MEDS: METHIMAZOLE 5 MG TABLET PO SCH ×3 (05:06→21:12)
[2021-04-04] MEDS: BLOOD SUGAR DIAGNOSTIC 1 EACH STRIP VI SCH ×4 (05:08→23:43)
[2021-04-04] MEDS: INSULIN REGULAR, HUMAN 300 UNIT/3 ML VIAL SQ PRN ×2 (05:09→18:41)
[2021-04-04 05:20] LABS: HEMATOCRIT 29.4 % (31.2-41.9); MEAN CORPUSCULAR HEMOGLOBIN 22.4 uug (24.7-32.8); MEAN CORPUSCULAR VOLUME 70.2 fL (75.5-95.3); PLATELET COUNT (AUTO) 196 K/uL (179-408)
--- NOTE | 2021-04-04 05:30 | NUR ---
AM CARE DONE BATH PATIENT ,CHANGED SOILED LINENS AND GOWN .PERIANAL CARE AND OLIVARES CARE DONE . ORAL AND VENT CARE . TURNED AND REPOSITION .
--- NOTE | 2021-04-04 05:30 | NUR ---
NOLAN SHINE CAME MADE HIS MORNING ROUNDS WITH ORDERS .
[2021-04-04 05:52] LABS: CARBON DIOXIDE 31 mmol/L (21-32); CHLORIDE 115 mmol/L (98-107); CREATININE 1.1 mg/dL (0.6-1.3); GLUCOSE 144 mg/dL (74-106); MAGNESIUM 3.1 mg/dL (1.8-2.4); PHOSPHOROUS 5.1 mg/dL (2.5-4.9)
[2021-04-04 05:58] LABS: BAND % (MANUAL) 4 % (0-10); LYMPHOCYTES % (MANUAL) 1 % (20-40); MONOCYTES % (MANUAL) 5 % (2-10); MYELOCYTES % 1 % (0-0); NEUTROPHILS % (MANUAL) 89 % (42-75)
[2021-04-04 06:01] LABS: UREA NITROGEN, BLOOD 100 mg/dL (7-18)
[2021-04-04] MEDS ORDERED: MIDODRINE HCL 5 MG TABLET PO PRN (08:00)
[2021-04-04 08:20] LABS: ABG BASE EXCESS 1.9 mmol/L; ABG HCO3 27.2 mmol/L; ABG PCO2 45.8 mmHg (35.0-45.0); ABG PH 7.392 (7.350-7.450); ABG SITE RIGHT RADIAL; ABG TOTAL HEMOGLOBIN 9.8 G/dL (12.0-16.0); COHb 0.4 % (0.5-1.5); MetHb 0.3 % (0.0-1.5); O2Hb 97.5 % (94.0-97.0); VENT MODE VENT - A/C; VT, ABG 450 mL
[2021-04-04] MEDS: DOCUSATE SODIUM 100 MG/10 ML LIQUID UDC GT SCH ×2 (09:12→20:13)
[2021-04-04] MEDS: PANTOPRAZOLE SODIUM 40 MG VIAL IV SCH (09:12)
[2021-04-04] MEDS: DEXAMETHASONE SOD PHOSPHATE 4 MG INJ IV SCH ×2 (09:13→20:10)
[2021-04-04] MEDS: DOXYCYCLINE HYCLATE IV 100 MG in IV DEXTROSE 5% 100 ML IV SCH (09:13)
[2021-04-04] MEDS: INSULIN GLARGINE,HUM 300 UNITS/3 ML CARTRIDGE SQ SCH ×2 (09:15→20:50)
[2021-04-04] MEDS: MIDAZOLAM HCL 50 MG in IV NORMAL SALINE 40 ML IV PRN ×2 (09:28→17:16)
[2021-04-04] MEDS: CHOLECALCIFEROL 1,000 UNIT TABLET PO SCH (09:33)
[2021-04-04] MEDS: POLYVINYL ALCOHOL OPHT DROPS 15 ML BOTTLE EACHEYE SCH ×2 (10:08→16:10)
[2021-04-04] MEDS: REMEDY ESSENTIAL ZINC PASTE 113 GM TOP SCH ×2 (10:08→20:12)
[2021-04-04] MEDS ORDERED: SODIUM POLYSTYRENE SULFONATE 15 G/60 ML LIQUID UDC PO ONE (10:30)
[2021-04-04] MEDS ORDERED: FUROSEMIDE 40 MG/4 ML VIAL IV ONE (10:30)
[2021-04-04 11:19] LABS: POTASSIUM 5.6 mmol/L (3.5-5.1)
[2021-04-04] MEDS: IV NORMAL SALINE 250 ML IV PRN (13:00)
[2021-04-04] MEDS: FLUCONAZOLE 200 MG/NS 100ML IV 200 MG in PREMIXED 1 EACH IV SCH (13:05)
[2021-04-04] MEDS: DEXTROSE 50% 50 ML DISP.SYRIN IV PRN (13:22)
[2021-04-04] MEDS: hydrALAZINE HCL 20 MG/1 ML VIAL IV PRN (14:05)
[2021-04-04] MEDS: MORPHINE SULFATE 2 MG/1 ML DISP.SYRIN IV PRN ×3 (14:05→23:50)
--- NOTE | 2021-04-04 14:55 | NUR ---
Contacted Dr. Rizzo about patient's increased BP and HR. Notified him that Hydralazine and morphine given and patient is maxed out on fentanyl. Received one time order of 4mg morphine IV push.
[2021-04-04] MEDS ORDERED: MORPHINE SULFATE 4 MG/1 ML DISP.SYRIN IV ONE (15:00)
--- NOTE | 2021-04-04 20:00 | NUR ---
GIVEN PRN MORPHINE PATIENT BP 138/63 , RR 28 HR 110, V/S CHANGES AND GIVEN MORPHINE PRIOR TO TURNING PATIENT DESATURATION .
--- NOTE | 2021-04-04 20:00 | NUR ---
ROUNDS MADE PATIENT INTUBATED ON VENT -7.5/22 CM AC26/450/PEEP8 FIO2 70%.SUCTION PATIENT SMALL SECRETION VIA MOUTH AND VIA ETT . RIGHT PICCLINE ON FENTANYL ,VERSED,NORCURON DRIP SEE SPREADSHEET . TF VIA THE NGT W/VITAL AF 40 ML/HR . FINGERSTICK DONE Q6 OLIVARES TO BSD WITH YELLOWISH URINE . RECTAL TUBE WITH + DIARRHEA +LIQUID STOOL
[2021-04-04] MEDS: PANTOPRAZOLE ORAL SUSPENSION 40 MG SUSPDR.PKT GT SCH (20:10)
[2021-04-04] MEDS: ENOXAPARIN SODIUM 40 MG/0.4 ML DISP.SYRIN SQ SCH (20:17)
--- NOTE | 2021-04-04 20:51 | NUR ---
CALLED [facility] SPOKED WITH WILBUR SHANKS INFOMRED PATIENT H/S FINGERSTICK ONLY 92 MG/DL HOLD LANTUS FOR TONIGHT AND INFORMED RL IN AM .
[2021-04-04] MEDS: ACETAMINOPHEN 650 MG/20.3 ML LIQUID UDC GT PRN (23:49)
[2021-04-05] VITALS (34 sets, daily range): BP systolic 131–168; BP diastolic 57–107
[2021-04-05] MEDS: MIDAZOLAM HCL 50 MG in IV NORMAL SALINE 40 ML IV PRN ×3 (00:44→21:22)
[2021-04-05] MEDS: FENTANYL CITRATE/PF 1,000 MCG in IV NORMAL SALINE 80 ML IV PRN ×2 (02:20→14:57)
--- NOTE | 2021-04-05 05:00 | NUR ---
am care done ,bath patient changed soiled linens and gown ,turned and repositioned patient , irrigated rectal tube .offloaded back with pillows bue and ble elevated with pillows heels off bed ,scds used .
[2021-04-05] MEDS: INSULIN REGULAR, HUMAN 300 UNIT/3 ML VIAL SQ PRN ×3 (05:23→23:22)
[2021-04-05] MEDS: BLOOD SUGAR DIAGNOSTIC 1 EACH STRIP VI SCH ×4 (05:23→23:21)
[2021-04-05] MEDS: MORPHINE SULFATE 2 MG/1 ML DISP.SYRIN IV PRN ×3 (05:25→17:53)
[2021-04-05] MEDS: METHIMAZOLE 5 MG TABLET PO SCH ×3 (05:26→21:18)
[2021-04-05 05:32] LABS: MEAN CORPUSCULAR HEMOGLOBIN 21.6 uug (24.7-32.8); MEAN CORPUSCULAR VOLUME 69.8 fL (75.5-95.3); PLATELET COUNT (AUTO) 208 K/uL (179-408)
[2021-04-05 05:45] LABS: BILIRUBIN,TOTAL 0.5 mg/dL (0.2-1.0); MAGNESIUM 2.9 mg/dL (1.8-2.4); PHOSPHOROUS 4.7 mg/dL (2.5-4.9); POTASSIUM 4.6 mmol/L (3.5-5.1)
[2021-04-05] MEDS: VITAL AF 1.2 1,000 ML LIQUID GT PRN ×2 (08:00→08:59)
[2021-04-05] MEDS: ACETAMINOPHEN 650 MG/20.3 ML LIQUID UDC GT PRN ×3 (08:13→20:03)
[2021-04-05 08:34] LABS: ABG HCO3 33.8 mmol/L; ABG PCO2 53.9 mmHg (35.0-45.0); ABG PH 7.415 (7.350-7.450); ABG PO2 78.8 mmHg (75.0-100.0); ABG SITE RIGHT RADIAL; ABG TOTAL HEMOGLOBIN 10.3 G/dL (12.0-16.0); MetHb 0.2 % (0.0-1.5); O2Hb 93.9 % (94.0-97.0); VENT MODE VENT - A/C; VT, ABG 450 mL
[2021-04-05] MEDS: CHOLECALCIFEROL 1,000 UNIT TABLET PO SCH (08:34)
[2021-04-05] MEDS: DEXAMETHASONE SOD PHOSPHATE 4 MG INJ IV SCH ×2 (08:34→20:03)
[2021-04-05] MEDS: PANTOPRAZOLE ORAL SUSPENSION 40 MG SUSPDR.PKT GT SCH ×2 (08:34→20:02)
[2021-04-05] MEDS: REMEDY ESSENTIAL ZINC PASTE 113 GM TOP SCH ×2 (08:34→21:03)
[2021-04-05] MEDS: DOCUSATE SODIUM 100 MG/10 ML LIQUID UDC GT SCH ×2 (08:34→21:00)
[2021-04-05] MEDS: POLYVINYL ALCOHOL OPHT DROPS 15 ML BOTTLE EACHEYE SCH ×2 (08:35→16:30)
[2021-04-05] MEDS: INSULIN GLARGINE,HUM 300 UNITS/3 ML CARTRIDGE SQ SCH (08:59)
[2021-04-05] MEDS: METOPROLOL TARTRATE 50 MG TABLET GT SCH ×2 (09:42→20:04)
[2021-04-05] MEDS ORDERED: METOPROLOL TARTRATE 50 MG TABLET PO SCH (09:45)
[2021-04-05] MEDS: VECURONIUM BROMIDE 50 MG in IV NORMAL SALINE 50 ML IV PRN (11:49)
[2021-04-05] MEDS: hydrALAZINE HCL 20 MG/1 ML VIAL IV PRN ×3 (13:39→23:10)
[2021-04-05 17:18] LABS: *BILIRUBIN,URIN NEGATIVE (NEGATIVE); *BLOOD, URINE NEGATIVE (NEGATIVE); *CLARITY,URINE CLEAR (CLEAR); *COLOR,URINE YELLOW (YELLOW); *KETONES,URINE NEGATIVE (NEGATIVE); *UROBILINOGEN,URINE 0.2 E.U./dl (NORMAL); LEUKOCYTE ESTERASE ,URINE NEGATIVE (NEGATIVE); NITRITE, URINE NEGATIVE (NEGATIVE); UGLUCOSE NEGATIVE (NEGATIVE)
--- NOTE | 2021-04-05 19:00 | NUR ---
Received report. Patient is sedated. ST on the monitor, 108bpm. ET 7.5, LL 22 with the vent settings of AC 26, TV 450, PEEP 8, FiO2 70%, O2 sat 91%. Suctioned and oral care done. NG TF Vital AF @40mls/hr, no gastric residual noted. JACK PICC Versed @7mg/hr, Fentanyl @100mcg/min, Vecuronium @0.4mcg/kg/min, TOF 4/4 Level 7. Moore catheter draining well to gravity. Flexiseal intact. Will continue to monitor closely.
[2021-04-05] MEDS: ENOXAPARIN SODIUM 40 MG/0.4 ML DISP.SYRIN SQ SCH (20:05)
--- NOTE | 2021-04-05 21:45 | NUR ---
Chase (son) called, update given.
[2021-04-05 22:32] LABS: BACTERIA,URINE NONE SEEN /HPF (NONE SEEN); RBC,URINE 0-3 /HPF (0-3); SQUAMOUS EPITHELIAL CELL,UR FEW /HPF (NONE SEEN); URIC ACID CRYSTALS,URINE MANY /HPF (NONE SEEN); WBC,URINE NONE SEEN /HPF (0-3)
[2021-04-06] VITALS (24 sets, daily range): BP systolic 96–172; BP diastolic 43–73
[2021-04-06] MEDS: MORPHINE SULFATE 2 MG/1 ML DISP.SYRIN IV PRN ×2 (00:29→13:48)
--- NOTE | 2021-04-06 00:30 | NUR ---
O2 sat 89%, oral and ET suctioned done, 100% O2 given from vent. Notified RT Dieter regarding patient's O2 saturation.
--- NOTE | 2021-04-06 00:45 | NUR ---
FiO2 increased to 100% c/o RT Dieter, O2 sat went up to 95%. Will continue to monitor closely.
[2021-04-06] MEDS: ACETAMINOPHEN 650 MG/20.3 ML LIQUID UDC GT PRN (01:25)
--- NOTE | 2021-04-06 01:43 | NUR ---
Contacted Dr. Rizzo about patient's increased BP. Notified him that Hydralazine and morphine given and patient is maxed out on fentanyl. Received one time order of 4mg morphine IV push.
[2021-04-06] MEDS ORDERED: MORPHINE SULFATE 4 MG/1 ML DISP.SYRIN IV ONE (01:45)
--- NOTE | 2021-04-06 02:06 | NUR ---
BP 172/73, tachypneic RR=30, abodminal breathing noted. Morphine 4mg IV once given as ordered. Will continue to monitor closely.
[2021-04-06] MEDS: FENTANYL CITRATE/PF 1,000 MCG in IV NORMAL SALINE 80 ML IV PRN ×2 (03:02→15:47)
--- NOTE | 2021-04-06 05:00 | NUR ---
Open blister approximately 2X2 cm skin tear, pinkish in color at left medial thigh. Blister with fluid approximately 2x2cm at right medial thigh. Photos taken and placed in chart.
[2021-04-06] MEDS: METHIMAZOLE 5 MG TABLET PO SCH ×3 (05:41→21:47)
[2021-04-06 05:50] LABS: HEMATOCRIT 31.4 % (31.2-41.9); MEAN CORPUSCULAR HEMOGLOBIN 22.1 uug (24.7-32.8); MEAN CORPUSCULAR VOLUME 69.7 fL (75.5-95.3); PLATELET COUNT (AUTO) 188 K/uL (179-408)
[2021-04-06] MEDS: BLOOD SUGAR DIAGNOSTIC 1 EACH STRIP VI SCH ×4 (05:50→23:45)
[2021-04-06] MEDS: INSULIN REGULAR, HUMAN 300 UNIT/3 ML VIAL SQ PRN ×4 (05:51→23:46)
[2021-04-06 05:57] LABS: CARBON DIOXIDE 35 mmol/L (21-32); CHLORIDE 113 mmol/L (98-107); GLUCOSE 220 mg/dL (74-106); MAGNESIUM 2.7 mg/dL (1.8-2.4); POTASSIUM 5.2 mmol/L (3.5-5.1)
[2021-04-06 06:07] LABS: UREA NITROGEN, BLOOD 83 mg/dL (7-18)
--- NOTE | 2021-04-06 06:45 | NUR ---
Left patient sedated and paralyzed, ST on the monitor, 103bpm. ET 7.5, LL 22 with the vent settings of AC 26, TV450, PEEP 8, FiO2 100%, O2 sat 100%. NG TF Vital AF @40mls/fgf27wq, off [id number]. JACK PICC Versed @7mg/hr, Fentanyl @100mcg/min, Vecuronium @0.6mcg/kg/min, TOF 4/4 Level 7. Moore catheter draining well to gravity. Flexiseal intact. NAD, VSS. Endorsed.
[2021-04-06] MEDS: MIDAZOLAM HCL 50 MG in IV NORMAL SALINE 40 ML IV PRN ×2 (06:53→17:50)
[2021-04-06 08:17] LABS: ABG BASE EXCESS 3.2 mmol/L; ABG HCO3 28.6 mmol/L; ABG PCO2 47.7 mmHg (35.0-45.0); ABG PH 7.396 (7.350-7.450); ABG PO2 187.3 mmHg (75.0-100.0); ABG SITE RIGHT RADIAL; ABG TOTAL HEMOGLOBIN 9.3 G/dL (12.0-16.0); COHb 1.1 % (0.5-1.5); MetHb 0.2 % (0.0-1.5); O2Hb 97.6 % (94.0-97.0); VENT MODE VENT - A/C; VT, ABG 450 mL
[2021-04-06] MEDS: DEXAMETHASONE SOD PHOSPHATE 4 MG INJ IV SCH ×2 (08:18→20:38)
[2021-04-06] MEDS: PANTOPRAZOLE ORAL SUSPENSION 40 MG SUSPDR.PKT GT SCH ×2 (08:20→20:37)
[2021-04-06] MEDS: METOPROLOL TARTRATE 50 MG TABLET GT SCH ×2 (08:20→20:37)
[2021-04-06] MEDS: CHOLECALCIFEROL 1,000 UNIT TABLET PO SCH (08:20)
[2021-04-06] MEDS: POLYVINYL ALCOHOL OPHT DROPS 15 ML BOTTLE EACHEYE SCH ×2 (08:21→17:28)
[2021-04-06] MEDS: DOCUSATE SODIUM 100 MG/10 ML LIQUID UDC GT SCH ×2 (08:21→20:36)
[2021-04-06] MEDS: REMEDY ESSENTIAL ZINC PASTE 113 GM TOP SCH ×2 (08:21→20:45)
[2021-04-06] MEDS: VECURONIUM BROMIDE 50 MG in IV NORMAL SALINE 50 ML IV PRN ×2 (08:23→12:04)
[2021-04-06] MEDS: INSULIN GLARGINE,HUM 300 UNITS/3 ML CARTRIDGE SQ SCH (08:23)
[2021-04-06] MEDS ORDERED: BUMETANIDE 1 MG/4 ML VIAL IV ONE (09:30)
--- NOTE | 2021-04-06 11:32 | NUR ---
Dr. Montemayor contacted this newswriter about further information about patient to proceed with tracheostomy. Provided son's number and he will be in contact to discuss tracheostomy.
[2021-04-06] MEDS: hydrALAZINE HCL 20 MG/1 ML VIAL IV PRN (13:48)
--- NOTE | 2021-04-06 17:40 | NUR ---
PT REMAINS INTUBATED ON CMV, FIO2 TITRATED TO 60% DURING SHIFT. PT IS TOLERATING VENT SETTINGS WELL, SPO2 AND RESPIRATIONS WNL. NO RESP. DISTRESS NOTED. ETT REPOSITIONED Q2. SUCTION PRN. WILL CONTINUE TO MONITOR AND FOLLOW CURRENT RESP. TREATMENTS ORDERED.
--- NOTE | 2021-04-06 19:10 | NUR ---
ICU report Received pt sedated, on vecuronium drip at 0.6 mcg, Fentanyl at 100 mcg, Versed at 7 mg JACK PICC line, old blood noted to site. Vent setting AC 26, TV 450ml, FIO2 60%. PEEP 8, VS Temp 98.8, HR 87 BP 133/61 RR 26 O2 Sat 97%. NGT placement check and verified, no residual at 40 ml/hr Generalized swelling noted. Moore and Rectal tube intact. Open blister to 2 inner thigh Rt side and 1 on the left inner thigh. TOF checked to Lt temporal 3/4 on level 8.
[2021-04-06] MEDS: ENOXAPARIN SODIUM 40 MG/0.4 ML DISP.SYRIN SQ SCH (20:39)
--- NOTE | 2021-04-06 21:48 | NUR ---
kavin id , is here to see patient , updates given on the patient condition
[2021-04-06] MEDS: IV NORMAL SALINE 250 ML IV PRN (22:26)
[2021-04-07] VITALS (23 sets, daily range): BP systolic 101–148; BP diastolic 49–74
--- NOTE | 2021-04-07 00:51 | NUR ---
ICU Notes For emergency contact Chase Oneil
[2021-04-07] MEDS: MIDAZOLAM HCL 50 MG in IV NORMAL SALINE 40 ML IV PRN ×3 (01:31→18:14)
--- NOTE | 2021-04-07 03:00 | NUR ---
ICU Notes Gaggerman Kathrine made aware vecuronium drip will be completed in 2 hours, pharmacist condenser tester need to be notified, no medication available.
--- NOTE | 2021-04-07 03:27 | NUR ---
RITESH , PHARMACIST WAS CALLED ( [phone] , [phone] MRI TECHNOLOGIST , TO INFORM THAT VECURONIUM MEDICATION WILL BE OUT IN ONE HOUR WITH NO NEW BAG FOR REPLACEMENT
[2021-04-07] MEDS: FENTANYL CITRATE/PF 1,000 MCG in IV NORMAL SALINE 80 ML IV PRN ×3 (03:46→20:30)
--- NOTE | 2021-04-07 03:47 | NUR ---
no response from pharmacist , notified administrative nursing supervisor about replacement of vecuronium bag
--- NOTE | 2021-04-07 04:13 | NUR ---
ICU Notes Nursing Sizing Machine And Drier Operator Kathrine, informed us that Juan Antonio Elmore Director called back and will try to get hold of someone regarding the vecuronium IV meds.
--- NOTE | 2021-04-07 04:15 | NUR ---
ICU Notes Vecuronium held due to empty bag, Precedex started.
--- NOTE | 2021-04-07 04:15 | NUR ---
tosha called , informed of current dosage , and rate of vecuronium , infprmed pharmacist will start precedex while waiting for a new bag
[2021-04-07] MEDS: METHIMAZOLE 5 MG TABLET PO SCH ×3 (05:23→21:07)
[2021-04-07] MEDS: BLOOD SUGAR DIAGNOSTIC 1 EACH STRIP VI SCH ×4 (05:24→23:42)
[2021-04-07] MEDS: INSULIN REGULAR, HUMAN 300 UNIT/3 ML VIAL SQ PRN ×3 (05:25→23:43)
[2021-04-07] MEDS: VECURONIUM BROMIDE 50 MG in IV NORMAL SALINE 50 ML IV PRN (05:32)
[2021-04-07 05:40] LABS: HEMATOCRIT 31.5 % (31.2-41.9); MEAN CORPUSCULAR VOLUME 69.6 fL (75.5-95.3); PLATELET COUNT (AUTO) 200 K/uL (179-408)
[2021-04-07 06:00] LABS: CREATININE 0.8 mg/dL (0.6-1.3); MAGNESIUM 2.7 mg/dL (1.8-2.4); PHOSPHOROUS 4.4 mg/dL (2.5-4.9); POTASSIUM 4.9 mmol/L (3.5-5.1)
--- NOTE | 2021-04-07 06:20 | NUR ---
ICU Note Pt remains sedated TOF 3/4 on 7, Vecuronium 0.6 mcg, fentanyl at 100 mcg, versed at 7 mg. NPO maintained for tracheostomy today. NGT checked and verified for placement. Blood sugar 122 mg/dl. PICC line to JACK, rectal tube and dave intact. Blister to lt anf rt inner thigh, treatment rendered. Generalized swelling.
--- NOTE | 2021-04-07 07:40 | NUR ---
Received patient on Cottrell vent with given settings of AC RR 26, Vt 450, PEEP +8, 60% Fio2. Patient is connect to vent via ETT 7.5 @ approx 22 lip and secured by anchorfast.. Cuff inflated. Alarms on and audible, Ambu bag at bed side. Ventilator plugged into red outlets. Will continue to monitor throughout shift.
[2021-04-07 07:55] LABS: ABG HCO3 30.8 mmol/L; ABG PCO2 40.9 mmHg (35.0-45.0); ABG PH 7.495 (7.350-7.450); ABG PO2 68.1 mmHg (75.0-100.0); ABG SITE LEFT BRACHIAL; ABG TOTAL HEMOGLOBIN 8.5 G/dL (12.0-16.0); COHb 0.7 % (0.5-1.5); O2Hb 91.2 % (94.0-97.0); VENT MODE VENT - A/C; VT, ABG 450 mL
[2021-04-07] MEDS: METOPROLOL TARTRATE 50 MG TABLET GT SCH ×2 (08:08→20:51)
[2021-04-07] MEDS: DEXAMETHASONE SOD PHOSPHATE 4 MG INJ IV SCH ×2 (08:08→20:52)
[2021-04-07] MEDS: INSULIN GLARGINE,HUM 300 UNITS/3 ML CARTRIDGE SQ SCH (08:10)
[2021-04-07] MEDS: REMEDY ESSENTIAL ZINC PASTE 113 GM TOP SCH ×2 (08:24→20:54)
[2021-04-07] MEDS: DOCUSATE SODIUM 100 MG/10 ML LIQUID UDC GT SCH (08:24)
[2021-04-07] MEDS: PANTOPRAZOLE ORAL SUSPENSION 40 MG SUSPDR.PKT GT SCH ×2 (08:24→20:51)
[2021-04-07] MEDS: POLYVINYL ALCOHOL OPHT DROPS 15 ML BOTTLE EACHEYE SCH ×2 (08:24→17:00)
[2021-04-07] MEDS: CHOLECALCIFEROL 1,000 UNIT TABLET PO SCH (08:41)
--- NOTE | 2021-04-07 09:12 | NUR ---
Patient had and episode of Bradycardia during tracheostomy procedure, Atropine pulled on standby as ordered per Dr. Montemayor. Patients bradycardia was not sustained very long and the Atropine was returned to bin.
[2021-04-07] MEDS ORDERED: ATROPINE SULFATE 1 MG/10 ML DISP.SYRIN ONE (09:22)
--- NOTE | 2021-04-07 09:30 | NUR ---
At bedside with doctor for tracheostomy. Shiley 7.5 cuffed.
[2021-04-07] MEDS ORDERED: BUMETANIDE 1 MG/4 ML VIAL IV ONE (10:30)
--- NOTE | 2021-04-07 18:48 | NUR ---
Patient now with tracheostomy to vent. A/C 26 BPM, FIo2 60%, TV 450, Peep 8. Patient is tolerating tube feeding at goal and water flushes q4h 250cc. Sinus carlos on the monitor, hemodynamically stable, rectal tube output of 100cc, and urine 950cc from dave with sediment. Patient is edematous and is on paralytic 0.4 mcg/kg/min, Versed 7, and fentanyl 100mcg. Patient frequently repositioned throughout shift and not significant bleeding from new tracheostomy. Discussed with Dr. Zhu patient needs of a PEG tube and provided phone number to juan jose Verdugoren.
--- NOTE | 2021-04-07 19:10 | NUR ---
tongue looks like has a small cut , scant blood noted
--- NOTE | 2021-04-07 19:10 | NUR ---
correction , received patient on vecuronium 0.4 mcg
--- NOTE | 2021-04-07 19:15 | NUR ---
patient sedated , fentanyl 100 mcg , versed 7 mg , vecuronium 0.2 mcg , tracheostomy , suture intact , ngt tube intact , placement checekd , vital af 40 ml , no residual noted , generalized swelling , blister on bilateral inner thigh noted , picc line , dave and rectal tube intact , no fever noted
[2021-04-07] MEDS: ENOXAPARIN SODIUM 40 MG/0.4 ML DISP.SYRIN SQ SCH (20:53)
[2021-04-08] VITALS (24 sets, daily range): BP systolic 104–186; BP diastolic 26–81
--- NOTE | 2021-04-08 | NUR ---
dr hicks was informed patient already had tracheostomy , still on versed and vecuronium and fentanyl , received order , to continue will folow up with doctor in am
--- NOTE | 2021-04-08 00:12 | NUR ---
PATIENT ON CONT WRAY VENT WITH SHILEY 7.[address] AND SECURED ,SLIGHT BLOOD , PATIENT ON CURRENT VENT SETTINGS, A/C 26, 450ML, PEEP8, FIO2 @ 60%, MOSTLY WITH CONTROLLED VENTILATION, SUCTION TRACH , SUCTION MOUTH WITH YANKAUER, NO VENT CHANGES MADE AT THIS TIME. Teresa KAY RCP Addendum: 04/08/21 at 0014 by SOREN KAY RT Amended: Links added.
[2021-04-08] MEDS: MIDAZOLAM HCL 50 MG in IV NORMAL SALINE 40 ML IV PRN (01:34)
--- NOTE | 2021-04-08 04:00 | NUR ---
some bleeding noted on tracheostomy site , dressing changed , and neck tie
[2021-04-08 05:07] LABS: HEMATOCRIT 23.6 % (31.2-41.9); MEAN CORPUSCULAR HEMOGLOBIN 22.6 uug (24.7-32.8); MEAN CORPUSCULAR VOLUME 69.5 fL (75.5-95.3); PLATELET COUNT (AUTO) 158 K/uL (179-408)
[2021-04-08 05:40] LABS: CARBON DIOXIDE 34 mmol/L (21-32); CHLORIDE 112 mmol/L (98-107); CREATININE 0.8 mg/dL (0.6-1.3); GLUCOSE 149 mg/dL (74-106); MAGNESIUM 2.7 mg/dL (1.8-2.4); PHOSPHOROUS 5.3 mg/dL (2.5-4.9); POTASSIUM 4.8 mmol/L (3.5-5.1)
[2021-04-08 05:50] LABS: UREA NITROGEN, BLOOD 89 mg/dL (7-18)
[2021-04-08] MEDS: METHIMAZOLE 5 MG TABLET PO SCH ×3 (06:01→21:04)
--- NOTE | 2021-04-08 06:38 | NUR ---
still some bleeding noted on tracheostomy site , dressing changed , neck tie was changed by RT earlier , same vent vent setting , still sedated , with no spontaneous eye opening , fentanyl 30 mcg , versed 1 mg , tf held as order x 22 hours , no residual noted , ngt placement checked . dave and rectal tube intact , blisters on inner and left and right thigh , generalized swelling , scant bleeding on mouth when oral care rendered ,
[2021-04-08] MEDS: BLOOD SUGAR DIAGNOSTIC 1 EACH STRIP VI SCH ×4 (06:54→23:19)
[2021-04-08] MEDS: INSULIN REGULAR, HUMAN 300 UNIT/3 ML VIAL SQ PRN ×2 (06:55→23:20)
[2021-04-08 07:51] LABS: ABG BASE EXCESS 3.5 mmol/L; ABG HCO3 27.5 mmol/L; ABG PCO2 39.6 mmHg (35.0-45.0); ABG PO2 96.4 mmHg (75.0-100.0); ABG SITE LEFT RADIAL; ABG TOTAL HEMOGLOBIN 8.4 G/dL (12.0-16.0); COHb 0.7 % (0.5-1.5); MetHb 0.5 % (0.0-1.5); O2Hb 95.3 % (94.0-97.0); VENT MODE VENT - A/C26; VT, ABG 450 mL
[2021-04-08] MEDS: CHOLECALCIFEROL 1,000 UNIT TABLET PO SCH (08:17)
[2021-04-08] MEDS: PANTOPRAZOLE ORAL SUSPENSION 40 MG SUSPDR.PKT GT SCH ×2 (08:17→20:40)
[2021-04-08] MEDS: DEXAMETHASONE SOD PHOSPHATE 4 MG INJ IV SCH (08:22)
[2021-04-08] MEDS: METOPROLOL TARTRATE 50 MG TABLET GT SCH (08:25)
[2021-04-08] MEDS: INSULIN GLARGINE,HUM 300 UNITS/3 ML CARTRIDGE SQ SCH (08:27)
[2021-04-08] MEDS: POLYVINYL ALCOHOL OPHT DROPS 15 ML BOTTLE EACHEYE SCH ×2 (08:28→17:16)
[2021-04-08] MEDS: REMEDY ESSENTIAL ZINC PASTE 113 GM TOP SCH ×2 (08:28→20:46)
--- NOTE | 2021-04-08 10:19 | NUR ---
placing patient NPO for possible GT placement today by dr. maciel. Per DR. MASTERS spoke to son regarding procedure and will obtain consent if procedure is planned for today.
[2021-04-08] MEDS ORDERED: METOCLOPRAMIDE HCL 10 MG/2 ML VIAL IV ONE (10:45)
--- NOTE | 2021-04-08 14:16 | NUR ---
PEG placement scheduled by dr. maciel for tuesday at 1200.
[2021-04-08] MEDS: LORAZEPAM 2 MG/1 ML VIAL IV PRN (15:42)
[2021-04-08] MEDS: MORPHINE SULFATE 2 MG/1 ML DISP.SYRIN IV PRN (15:45)
--- NOTE | 2021-04-08 16:00 | NUR ---
patient desating, tachypnea, tachycardia. ativan and morphine given for comfort.
--- NOTE | 2021-04-08 17:00 | NUR ---
hold blood thinners for now due to bleeding at trach site.
--- NOTE | 2021-04-08 19:00 | NUR ---
Received report. Patient is asleep, nonverbal, responsive to stimuli. No signs of pain noted. NAD. SR on the monitor, 76 bpm. Trach Shiley 7.5 hooked to vent settings AC 22, TV 450, PEEP 8, FiO2 50%. Trach dressing dry, bleeding noted. Trach dressing changed as needed. NG TF Vital AF 1.2 @40mls/hr, no gastric residual noted. JACK PICC line with ongoing NS @TKO. Moore catheter draining well to gravity. Flexiseal intact. Will continue to monitor closely.
--- NOTE | 2021-04-08 20:00 | NUR ---
Pt rec'd on Cottrell settings of A/C 22, VT 450, PEEP +8 and FIO2-50%. No resp. distress noted and pt appears to be tolerating ventilator settings well. Pt to be monitored throughout the duration of the shift. Shiley 7.5 is patent and secure; BVM at bedside. Cottrell alarm parameters have been checked and remain audible.
[2021-04-08] MEDS: hydrALAZINE HCL 20 MG/1 ML VIAL IV PRN (21:27)
[2021-04-09] VITALS (24 sets, daily range): BP systolic 104–169; BP diastolic 41–80
[2021-04-09] MEDS: LORAZEPAM 2 MG/1 ML VIAL IV PRN ×3 (05:17→20:49)
[2021-04-09] MEDS: BLOOD SUGAR DIAGNOSTIC 1 EACH STRIP VI SCH ×3 (05:22→17:36)
[2021-04-09] MEDS: INSULIN REGULAR, HUMAN 300 UNIT/3 ML VIAL SQ PRN ×2 (05:23→17:39)
[2021-04-09] MEDS: METHIMAZOLE 5 MG TABLET PO SCH ×3 (05:23→21:38)
[2021-04-09 05:24] LABS: HEMATOCRIT 28.3 % (31.2-41.9); MEAN CORPUSCULAR HEMOGLOBIN 22.2 uug (24.7-32.8); MEAN CORPUSCULAR VOLUME 69.5 fL (75.5-95.3); PLATELET COUNT (AUTO) 199 K/uL (179-408)
[2021-04-09 05:42] LABS: CARBON DIOXIDE 32 mmol/L (21-32); CHLORIDE 108 mmol/L (98-107); CREATININE 0.8 mg/dL (0.6-1.3); GLUCOSE 109 mg/dL (74-106); IRON, SERUM 78 ug/dL (50-175); MAGNESIUM 2.5 mg/dL (1.8-2.4); PHOSPHOROUS 4.2 mg/dL (2.5-4.9); POTASSIUM 4.4 mmol/L (3.5-5.1); UREA NITROGEN, BLOOD 77 mg/dL (7-18)
[2021-04-09 05:44] LABS: THYROID STIMULATING HORMONE 0.311 mIU/mL (0.358-3.740)
[2021-04-09 06:15] LABS: ABG BASE EXCESS 1.7 mmol/L; ABG HCO3 24.1 mmol/L; ABG PCO2 29.6 mmHg (35.0-45.0); ABG PH 7.528 (7.350-7.450); ABG PO2 51.1 mmHg (75.0-100.0); ABG SITE LEFT RADIAL; ABG TOTAL HEMOGLOBIN 9.1 G/dL (12.0-16.0); COHb 0.8 % (0.5-1.5); MetHb 0.1 % (0.0-1.5); O2Hb 86.1 % (94.0-97.0); VENT MODE VENT - A/C; VT, ABG 450 mL
--- NOTE | 2021-04-09 06:19 | NUR ---
FiO2 increase to 100% c/o RT Dieter, O2 sat 99%.
--- NOTE | 2021-04-09 06:20 | NUR ---
FIO2 to 100% per ABG results. RN SM aware and notified.
--- NOTE | 2021-04-09 06:41 | NUR ---
Left patient asleep, NAD, VSS. Trach Shiley 7.5 hooked to vent settings AC 22, TV 450, PEEP 8, FiO2 100%. NG TF Vital AF 1.2 @40mls/hr, off [id number]. JACK PICC line with ongoing NS @TKO. Moore catheter draining well to gravity. Flexiseal intact. Endorsed.
--- NOTE | 2021-04-09 07:10 | NUR ---
Received pt. Trache to vent shiley #7.5. on A/C22, tv 450, Peep + 8 and 100% FIO2. bedside saturation of 100%. Neuro-fernandes pt. withdrawing from painful stimuli NOEMÍ. No distress no tachypnea noted. Hemodynamically stable, no vasopressor support sbp within desired limits. NG with feeding to be resumed as recommended, and as per report daisha. well with no n/v. Moore to gravity. IV line patent.
[2021-04-09] MEDS: PANTOPRAZOLE ORAL SUSPENSION 40 MG SUSPDR.PKT GT SCH ×2 (09:14→20:44)
[2021-04-09] MEDS: CHOLECALCIFEROL 1,000 UNIT TABLET PO SCH (09:14)
[2021-04-09] MEDS: DEXAMETHASONE SOD PHOSPHATE 4 MG INJ IV SCH (09:14)
[2021-04-09] MEDS: REMEDY ESSENTIAL ZINC PASTE 113 GM TOP SCH ×2 (09:16→20:45)
[2021-04-09] MEDS: POLYVINYL ALCOHOL OPHT DROPS 15 ML BOTTLE EACHEYE SCH ×2 (09:16→17:33)
[2021-04-09] MEDS: INSULIN GLARGINE,HUM 300 UNITS/3 ML CARTRIDGE SQ SCH (09:20)
--- NOTE | 2021-04-09 10:00 | NUR ---
Pulmonary services, Dr. Gonzalez in the unit to follow up on pt. report given see order hx.
[2021-04-09] MEDS ORDERED: METOCLOPRAMIDE HCL 10 MG/2 ML VIAL IV ONE (10:22)
--- NOTE | 2021-04-09 11:41 | NUR ---
FIO2 down to 70% pt. tolerating titration well with bedside saturation of 100%.
[2021-04-09] MEDS: MORPHINE SULFATE 2 MG/1 ML DISP.SYRIN IV PRN ×2 (12:31→20:28)
[2021-04-09] MEDS: VORICONAZOLE 200 MG TABLET PO SCH ×2 (13:18→20:43)
--- NOTE | 2021-04-09 15:25 | NUR ---
FIO2 down to 60%.
[2021-04-09] MEDS ORDERED: GLUCERNA 1.2 1000ML LIQUID GT PRN (16:30)
[2021-04-09] MEDS: hydrALAZINE HCL 20 MG/1 ML VIAL IV PRN (18:08)
[2021-04-09 18:55] LABS: *OCCULT BLOOD STOOL POSITIVE (NEGATIVE)
[2021-04-09] MEDS: GLUCERNA 1.2 1000ML LIQUID GT PRN (20:27)
--- NOTE | 2021-04-09 21:14 | NUR ---
received pt on Cottrell vent with the following settings of AC-22, Vt-450, PEEP+8, FIO2-50%, trached with Shiley#7.5 cuffed trach. Due to MD order lower RR to 16bpm, EDY Duke notified. Airway care done, pt responded to physical stimuli. HME changed. Resus. bag and back up trach at bedside. Vent and alarms checked and reset.
--- NOTE | 2021-04-09 21:16 | NUR ---
vent rate changed to 16. Patient tachypneic in the lower 30's.
[2021-04-10] VITALS (25 sets, daily range): BP systolic 109–175; BP diastolic 47–90
--- NOTE | 2021-04-10 00:01 | NUR ---
At this time NG-feeding stopped as ordered pt. scheduled to have PEG placed today some time past noon.
[2021-04-10] MEDS: BLOOD SUGAR DIAGNOSTIC 1 EACH STRIP VI SCH ×5 (00:20→23:30)
[2021-04-10] MEDS: INSULIN REGULAR, HUMAN 300 UNIT/3 ML VIAL SQ PRN ×3 (00:22→23:29)
[2021-04-10] MEDS: IV NORMAL SALINE 250 ML IV PRN (02:22)
[2021-04-10] MEDS: MORPHINE SULFATE 2 MG/1 ML DISP.SYRIN IV PRN ×3 (04:44→21:18)
[2021-04-10] MEDS: DEXTROSE 50% 50 ML DISP.SYRIN IV PRN (05:25)
--- NOTE | 2021-04-10 05:28 | NUR ---
For a glucose level of 62 At this time patient received 1 amp of DEXTROSE. service representative physician called and notified orders to start pt. on D51/2NS to be run at 70cc/hr. X 2 liters received.
[2021-04-10 05:36] LABS: HEMATOCRIT 24.5 % (31.2-41.9); MEAN CORPUSCULAR HEMOGLOBIN 22.2 uug (24.7-32.8); MEAN CORPUSCULAR VOLUME 68.9 fL (75.5-95.3); PLATELET COUNT (AUTO) 159 K/uL (179-408)
[2021-04-10] MEDS ORDERED: IV D5 1/2 NS 1000 ML 1,000 ML IV ONE (05:45)
[2021-04-10] MEDS: METHIMAZOLE 5 MG TABLET PO SCH ×3 (05:45→21:12)
[2021-04-10 05:50] LABS: BILIRUBIN,TOTAL 0.6 mg/dL (0.2-1.0); CREATININE 0.8 mg/dL (0.6-1.3); MAGNESIUM 2.5 mg/dL (1.8-2.4); PHOSPHOROUS 3.6 mg/dL (2.5-4.9); POTASSIUM 4.4 mmol/L (3.5-5.1); TOTAL PROTEIN, SERUM 4.6 g/dL (6.4-8.2)
[2021-04-10] MEDS: ACETAMINOPHEN 650 MG/20.3 ML LIQUID UDC GT PRN (05:56)
--- NOTE | 2021-04-10 06:37 | NUR ---
Left pt. on Ventilator Shiley 7.5, A/C 16, tv 450, FIO2 50% and Peep +8. pt. tachypneic with rr in the low 30's, with saturation at desired limits. Medicated for pain during shift see Emar. Hemodynamically stable on sinus rhythm, with sbp within normal. Neuro-fernandes unchanged withdrawing from painful stimuli. NG-T clumped pt. NPO past MN x meds. Recta tube in place. dave to gravity and draining adequate naila sedimented output. Safety measures implemented at all times. IV line patent. Will endorse to continue with care plan.
--- NOTE | 2021-04-10 07:45 | NUR ---
Received patient with ventilator setttings of AC 16, TV 450, PEEP 8, FiO2 of 50%. Hemodynamically stable. Sinus rhythm on cardiac monitor technician. Patient NPO due to surgical procedure scheduled. Trach patent, midline, and intact. Minimal secretions. Moore in tact and draining. Flexiseal in tact. JACK PICC line patent and intact running D5 1/2NS at 70mL. Safety precautions in place. Will continue to monitor patient throughout shift.
[2021-04-10 08:20] LABS: ABG BASE EXCESS 2.8 mmol/L; ABG HCO3 25.5 mmol/L; ABG PCO2 31.4 mmHg (35.0-45.0); ABG PH 7.528 (7.350-7.450); ABG PO2 69.9 mmHg (75.0-100.0); ABG SITE LEFT RADIAL; ABG TOTAL HEMOGLOBIN 8.1 G/dL (12.0-16.0); COHb 0.8 % (0.5-1.5); MetHb 0.6 % (0.0-1.5); O2Hb 91.8 % (94.0-97.0); VENT MODE VENT - A/C; VT, ABG 450 mL
[2021-04-10] MEDS: VORICONAZOLE 200 MG TABLET PO SCH ×2 (09:00→20:51)
[2021-04-10] MEDS: INSULIN GLARGINE,HUM 300 UNITS/3 ML CARTRIDGE SQ SCH (09:00)
[2021-04-10] MEDS: PANTOPRAZOLE ORAL SUSPENSION 40 MG SUSPDR.PKT GT SCH ×2 (09:00→20:51)
[2021-04-10] MEDS: CHOLECALCIFEROL 1,000 UNIT TABLET PO SCH (09:00)
[2021-04-10] MEDS: DEXAMETHASONE SOD PHOSPHATE 4 MG INJ IV SCH (09:26)
[2021-04-10] MEDS: REMEDY ESSENTIAL ZINC PASTE 113 GM TOP SCH ×2 (09:41→20:54)
[2021-04-10] MEDS: POLYVINYL ALCOHOL OPHT DROPS 15 ML BOTTLE EACHEYE SCH ×2 (09:41→17:30)
--- NOTE | 2021-04-10 10:40 | NUR ---
Surgical team at bedside for preop.
--- NOTE | 2021-04-10 11:20 | NUR ---
PEG placement procedure finished. Will monitor patient's vital signs.
[2021-04-10] MEDS ORDERED: ETOMIDATE 20 MG/10 ML VIAL IV ONE (11:21)
[2021-04-10] MEDS ORDERED: CEFAZOLIN 1 G VIAL IM ONE (11:21)
[2021-04-10] MEDS ORDERED: LIDOCAINE-MPF 2% 5 ML VIAL IJ ONE (11:21)
--- NOTE | 2021-04-10 12:25 | NUR ---
WOUND CARE CONSULT: PT SEEN FOR EVALUATION OF BLISTERS TO THIGHS. SOME ARE OPEN AND SOME ARE INTACT TO ANTERIOR AND MEDIAL THIGHS. RECOMMENDATIONS MADE FOR SKIN PROTECTION AND WOUND CARE. DISCUSSED WITH NURSING STAFF. MD IN AGREEMENT WITH PLAN OF CARE.
[2021-04-10] MEDS: hydrALAZINE HCL 20 MG/1 ML VIAL IV PRN (16:04)
--- NOTE | 2021-04-10 19:15 | NUR ---
Received report from Yany SNOW, Trach on mechanical vent with the ff parameters, AC 16, TV 450, PEEP 8, FIO2 60% Suctioned trach with whitish secretions small in amt, no bleeding noted to trach site. PEG tube inplace, placement cinfirmed, flushed. clamped no bleeding noted to site Repositioned pt to side, Skin care and back rub done. 1 small blister with 2 popped on the rt inner thigh, popped blister to lt thigh. Remains generalized swelling. Rt upper arm PICC line dressing intact with blood noted to site, all ports flushed and patent. Moore catheter inplace, flexiseal inplace and flushed with water.
--- NOTE | 2021-04-10 20:30 | NUR ---
Dr Jessica and Dr Tavares in, updated with pt condition.
--- NOTE | 2021-04-10 20:40 | NUR ---
DUE MEDICATION CRUSHED AND GIVEN WITH THE PEG , PATIENT ON TF GLUCERNA 1.2 @40 ML/HR TOLERATING VERY MINIMAL RESIDUAL . HOB UP ASPIRATION PRECAUTION . Addendum: 04/11/21 at 2343 by WESTLEY ZIMMER RN WRONG DATE 04/10/2021 AT 2343
--- NOTE | 2021-04-10 20:59 | NUR ---
BUMEX IVP AND ALBUMIN IV GIVEN SEE EMAR .
--- NOTE | 2021-04-10 22:00 | NUR ---
TURNED AND REPOSITION PATIENT OFFLOADED BACK WITH PILLOW AND BUE AND BLE ELEVATED WITH PILLOW .
[2021-04-10] MEDS: LORAZEPAM 2 MG/1 ML VIAL IV PRN (23:18)
[2021-04-11] VITALS (22 sets, daily range): BP systolic 102–179; BP diastolic 47–90
--- NOTE | 2021-04-11 00:43 | NUR ---
PATIENT ON CONT WRAY VENT WITH SHILEY 7.[address] AND SECURED, WITH CURRENT VENT SETTINGS, A/C 16,450ML, PEEP8, FIO2 @ 60%, PT TENDS TO BREATH RAPID AT TIMES, THEN SLOWS DOWN , AL VENT ALARMS GOOD, NO VENT CHANGES MADE, VENT PLUGGED INTO RED WALL OUT, AMBU BAG AT BEDSIDE, SAT 98%.Teresa ESPINOSAP Addendum: 04/11/21 at 0045 by SOREN KAY RT Amended: Links added.
--- NOTE | 2021-04-11 02:00 | NUR ---
Moore catheter changed aseptically x 1 attempt, with clear yellow urine noted.
--- NOTE | 2021-04-11 03:04 | NUR ---
03:00 TITRATE FIO2 @ 50%, ARMAND NOTIFIED .Teresa KAY WEATHERIZATION SPECIALIST Addendum: 04/11/21 at 0305 by SOREN KAY RT Amended: Links added.
[2021-04-11 05:35] LABS: HEMATOCRIT 23.3 % (31.2-41.9); MEAN CORPUSCULAR HEMOGLOBIN 22.1 uug (24.7-32.8); MEAN CORPUSCULAR VOLUME 69.7 fL (75.5-95.3); PLATELET COUNT (AUTO) 137 K/uL (179-408)
[2021-04-11] MEDS: hydrALAZINE HCL 20 MG/1 ML VIAL IV PRN ×2 (05:41→12:46)
[2021-04-11] MEDS: METHIMAZOLE 5 MG TABLET PO SCH ×3 (05:41→22:56)
[2021-04-11 05:43] LABS: ALANINE AMINOTRANSFERASE 122 U/L (14-59); ALKALINE PHOSPHATASE 93 U/L (50-136); ASPARTATE AMINOTRANSFERASE 69 U/L (15-37); BILIRUBIN,TOTAL 0.7 mg/dL (0.2-1.0); CARBON DIOXIDE 32 mmol/L (21-32); CHLORIDE 108 mmol/L (98-107); CREATININE 0.6 mg/dL (0.6-1.3); GLUCOSE 123 mg/dL (74-106); MAGNESIUM 2.3 mg/dL (1.8-2.4); PHOSPHOROUS 3.2 mg/dL (2.5-4.9); POTASSIUM 4.1 mmol/L (3.5-5.1); TOTAL PROTEIN, SERUM 4.6 g/dL (6.4-8.2); UREA NITROGEN, BLOOD 41 mg/dL (7-18)
[2021-04-11 05:44] LABS: NEUTROPHILS % (MANUAL) 0 % (42-75)
[2021-04-11] MEDS: BLOOD SUGAR DIAGNOSTIC 1 EACH STRIP VI SCH ×3 (05:45→18:06)
[2021-04-11] MEDS: INSULIN REGULAR, HUMAN 300 UNIT/3 ML VIAL SQ PRN (05:46)
[2021-04-11 06:20] LABS: ABG BASE EXCESS 2.5 mmol/L; ABG HCO3 25.7 mmol/L; ABG PCO2 33.8 mmHg (35.0-45.0); ABG PH 7.499 (7.350-7.450); ABG PO2 84.4 mmHg (75.0-100.0); ABG SITE RIGHT RADIAL; ABG TOTAL HEMOGLOBIN 8.1 G/dL (12.0-16.0); COHb 0.9 % (0.5-1.5); MetHb 0.1 % (0.0-1.5); O2Hb 95.2 % (94.0-97.0); VENT MODE VENT - A/C; VT, ABG 450 mL
--- NOTE | 2021-04-11 06:48 | NUR ---
TRACH ON MECHANICAL VENTILATOR, FIO2 DOWN TO 50% AC16, 450 TV, PEEP 8. ABG/CXR DONE. PEG INPLACE VERIFIED PLACEMENT, NO RESIDUAL NOTED PICC LINE TO JACK INTACT PORT X 3 PATENT.OLIVARES AND FLEXISEAL INPLACE.
--- NOTE | 2021-04-11 07:00 | NUR ---
Received pt. on ventilator A/C 16, TV450 Peep+8 and fio2 of 50%. RR in the low 30's hemodynamically stable. SBP within desired limits. IV line access patent. PEG in place with feeding to be resumed this morning. dave to gravity and rectal tube in place. Neuro-fernandes pt. withdrawing from pain. Safety measures implemented will continue to monitor.
[2021-04-11] MEDS: CHOLECALCIFEROL 1,000 UNIT TABLET PO SCH (08:22)
[2021-04-11] MEDS: PANTOPRAZOLE ORAL SUSPENSION 40 MG SUSPDR.PKT GT SCH ×2 (08:22→20:40)
[2021-04-11] MEDS: DEXAMETHASONE SOD PHOSPHATE 4 MG INJ IV SCH (08:22)
[2021-04-11] MEDS: POLYVINYL ALCOHOL OPHT DROPS 15 ML BOTTLE EACHEYE SCH ×2 (08:23→18:06)
[2021-04-11] MEDS: VORICONAZOLE 200 MG TABLET PO SCH ×2 (08:23→20:39)
[2021-04-11] MEDS: INSULIN GLARGINE,HUM 300 UNITS/3 ML CARTRIDGE SQ SCH (08:58)
[2021-04-11] MEDS: REMEDY ESSENTIAL ZINC PASTE 113 GM TOP SCH ×2 (08:59→20:41)
--- NOTE | 2021-04-11 09:00 | NUR ---
Pulmonary services, Dr. Gonzalez in the unit to follow up on pt. report given. See order hx.
[2021-04-11] MEDS: GLUCERNA 1.2 1000ML LIQUID GT PRN (11:32)
[2021-04-11] MEDS: LORAZEPAM 2 MG/1 ML VIAL IV PRN (12:45)
--- NOTE | 2021-04-11 16:50 | NUR ---
PT REMAINS TRACH TO VENT ON CMV. PT IS OBTUNDED, UNABLE TO FOLLOW COMMANDS. PT TACHYPNEIC BREATHING IN THE 30'S THROUGHOUT SHIFT, SPO2 WNL. TRACH IS SECURE AND PATENT. NO VENT CHANGES MADE TODAY. SUCTION PRN. WILL CONTINUE TO MONITOR AND FOLLOW CURRENT RESPIRATORY TREATMENTS ORDERED.
--- NOTE | 2021-04-11 18:30 | NUR ---
PT's son on the phone and He was upset that HIPPA was implemented. As reported by wendy. Licha He also called this morning and was updated by her. He was educated on HIPPA law and at this time He added Leilani Chatterjee pt's sister as a person to whom we nurses can give pt's information as well.
--- NOTE | 2021-04-11 18:38 | NUR ---
Attending in to examine pt. at this time the under-signee was on the phone with pt's son. report given to by wendy Hurt see monisha hx.
--- NOTE | 2021-04-11 18:43 | NUR ---
A call to case management Ms. Trujillo and message left for her to give pt's son a call within the next business day.
[2021-04-11] MEDS ORDERED: BUMETANIDE 1 MG/4 ML VIAL IV ONE (19:00)
[2021-04-11] MEDS ORDERED: ALBUMIN HUMAN 25% 50 ML IV ONE (19:00)
--- NOTE | 2021-04-11 19:30 | NUR ---
ROUNDS MADE PATIENT IN BED OPEN EYES SPONTANEOUSLY BUT DOESN'T FOLLOW COMMANDS . SR ON THE HEART MONITOR RATE 80,AFEBRILE 98.6 F VIA AXILLARY . TRACH SHILEY NO. 7.5 VENT SETTINGS AC 16,450,PEEP 8 FIO2 50% TOLERATING VENT SETTINGS RR 21 SATURATION 99 % .SUCTION MODERATE AMT OF SECRETION VIA THE MOUTH AND VIA THE TRACH . F/C TO BSD WITH YELLOWISH . RECTAL TUBE -IN PLACED WITH LIQUID STOOL . Addendum: 04/11/21 at 2337 by WESTLEY ZIMMER RN THIS NOTE IS FOR 04/10/2021 START OF THE SHIFT 1935
[2021-04-11] MEDS ORDERED: BUMETANIDE 1 MG/4 ML VIAL ONE (21:05)
[2021-04-12] VITALS (24 sets, daily range): BP systolic 119–167; BP diastolic 48–76
[2021-04-12] MEDS: BLOOD SUGAR DIAGNOSTIC 1 EACH STRIP VI SCH ×5 (00:27→23:03)
--- NOTE | 2021-04-12 01:00 | NUR ---
peg tube free water flushes of 250 ml q4 hourly.
--- NOTE | 2021-04-12 02:12 | NUR ---
PATIENT ON CONT WRAY VENT WITH SHILEY 7.[address] AND SECURED, SUCTION AT TIMES LIGHT PALE YELL TINGE SECRETIONS, AND SUCTION MOUTH WITH MARCOS, CHANGE HME AND RANKIN, ALL VENT ALARMS GOOD, SETTINGS, A/C 16, 450ML, PEEP8, FIO2 @ 50% . Teresa ESPINOSAP Addendum: 04/12/21 at 0214 by SOREN KAY RT Amended: Links added.
--- NOTE | 2021-04-12 03:30 | NUR ---
am care done changed soiled linens and gown perineal care done . Moore care done ,trach care and oral care done .
--- NOTE | 2021-04-12 04:00 | NUR ---
piccline dressing changed done aseptically .
[2021-04-12] MEDS: METHIMAZOLE 5 MG TABLET PO SCH ×3 (05:09→21:00)
[2021-04-12] MEDS: INSULIN REGULAR, HUMAN 300 UNIT/3 ML VIAL SQ PRN ×3 (05:15→23:04)
[2021-04-12 05:22] LABS: HEMATOCRIT 22.2 % (31.2-41.9); MEAN CORPUSCULAR HEMOGLOBIN 22.1 uug (24.7-32.8); MEAN CORPUSCULAR VOLUME 69.9 fL (75.5-95.3); PLATELET COUNT (AUTO) 133 K/uL (179-408)
[2021-04-12 05:37] LABS: CARBON DIOXIDE 30 mmol/L (21-32); CHLORIDE 105 mmol/L (98-107); CREATININE 0.6 mg/dL (0.6-1.3); GLUCOSE 154 mg/dL (74-106); MAGNESIUM 2.2 mg/dL (1.8-2.4); PHOSPHOROUS 3.2 mg/dL (2.5-4.9); POTASSIUM 3.6 mmol/L (3.5-5.1); UREA NITROGEN, BLOOD 39 mg/dL (7-18)
--- NOTE | 2021-04-12 06:00 | NUR ---
flexiseal rectal tube irrigated had 50 ml of liquid stool and changed flexiseal bag .
[2021-04-12] MEDS: hydrALAZINE HCL 20 MG/1 ML VIAL IV PRN ×2 (06:30→18:06)
--- NOTE | 2021-04-12 07:00 | NUR ---
Receive pt. on ventilator shyle #7.5 A/C 16, tv450, Peep+8.and FIO2 50%. RR in the low-mid 30's with saturation above 95%. Hemodynamically stable with sbp within desired limits. PEG with feeding to be resumed. Dave to gravity with dark naila output. dave to gravity, IV line patent. Will continue to monitor.
--- NOTE | 2021-04-12 07:00 | NUR ---
Receive pt. on ventilator shyle #7.5 A/C 16, tv450, Peep _
[2021-04-12 08:06] LABS: ABG BASE EXCESS 6.2 mmol/L; ABG HCO3 27.5 mmol/L; ABG PCO2 30.2 mmHg (35.0-45.0); ABG PH 7.577 (7.350-7.450); ABG PO2 70.3 mmHg (75.0-100.0); ABG SITE RIGHT RADIAL; VENT MODE VENT - A/C; VT, ABG 450 mL
[2021-04-12] MEDS: POLYVINYL ALCOHOL OPHT DROPS 15 ML BOTTLE EACHEYE SCH ×2 (08:40→16:36)
[2021-04-12] MEDS: CHOLECALCIFEROL 1,000 UNIT TABLET PO SCH (08:40)
[2021-04-12] MEDS: PANTOPRAZOLE ORAL SUSPENSION 40 MG SUSPDR.PKT GT SCH ×2 (08:40→20:53)
[2021-04-12] MEDS: DEXAMETHASONE SOD PHOSPHATE 4 MG INJ IV SCH (08:40)
[2021-04-12] MEDS: INSULIN GLARGINE,HUM 300 UNITS/3 ML CARTRIDGE SQ SCH (08:43)
[2021-04-12] MEDS: REMEDY ESSENTIAL ZINC PASTE 113 GM TOP SCH ×2 (08:44→20:56)
--- NOTE | 2021-04-12 09:00 | NUR ---
Patient seen by pulmonary services, Dr. Gonzalez report given see orders.
[2021-04-12] MEDS: VORICONAZOLE 200 MG TABLET PO SCH ×2 (11:01→20:53)
[2021-04-12] MEDS: METOPROLOL TARTRATE 25 MG TABLET GT SCH ×2 (11:01→20:59)
--- NOTE | 2021-04-12 13:36 | NUR ---
Saturation of 91% FIO2 back to 45%.
--- NOTE | 2021-04-12 16:30 | NUR ---
PT REMAINS TRACH TO VENT ON CMV. FIO2 TITRATED TO 45% DURING SHIFT. PEAK PRESSURES IN THE 30-40'S. SPO2 WNL, RESPIRATIONS IN THE MID 20'S THROUGHOUT SHIFT. DEEP TRACH SXN PRN. WILL CONTINUE TO MONITOR AND FOLLOW CURRENT RESPIRATORY TREATMENTS ORDERED.
--- NOTE | 2021-04-12 19:00 | NUR ---
Received report. Patient is asleep, responsive to verbal and tactile stimuli. Turns head from side to side. SR on the monitor, 83bpm, BP 136/65. Trach Shiley 7.5 with vent settings of AC 16, TV 450, PEEP 8, FiO2 45%, O2 sat 95%. JACK PICC line heplock, patent and flushed. PEG TF Glucerna 1.2 @65mls/hr, no gastric residual noted. Moore catheter draining well to gravity. Flexiseal intact. Will continue to monitor closely.
--- NOTE | 2021-04-12 21:00 | NUR ---
Water flushes 250ml q4 done. Addendum: 04/13/21 at 0358 by Sandra Hunter RN via PEG tube
[2021-04-13] VITALS (24 sets, daily range): BP systolic 114–167; BP diastolic 51–77
--- NOTE | 2021-04-13 01:40 | NUR ---
PATIENT ON CONT WRAY VENT WITH TRACH, SUCTIONED LIGHT PALE YELL TINGE SECRETIONS, AND ORAL CARE DONE ; NO VENT CHANGES MADE, PT ON A/C 16, FIO2 45%, PEEP 8,450ML, ALL VENT ALARMS GOOD, ABG BEFORE 0700.Teresa KAY RCP Addendum: 04/13/21 at 0143 by SOREN KAY RT Amended: Links added.
[2021-04-13] MEDS: hydrALAZINE HCL 20 MG/1 ML VIAL IV PRN (03:30)
--- NOTE | 2021-04-13 04:30 | NUR ---
AM care done. Linen changed.
[2021-04-13] MEDS: BLOOD SUGAR DIAGNOSTIC 1 EACH STRIP VI SCH ×4 (05:05→23:39)
[2021-04-13] MEDS: INSULIN REGULAR, HUMAN 300 UNIT/3 ML VIAL SQ PRN ×2 (05:05→23:40)
[2021-04-13] MEDS: METHIMAZOLE 5 MG TABLET PO SCH ×3 (05:10→21:06)
[2021-04-13 05:16] LABS: CARBON DIOXIDE 30 mmol/L (21-32); CHLORIDE 106 mmol/L (98-107); CREATININE 0.6 mg/dL (0.6-1.3); GLUCOSE 132 mg/dL (74-106); MAGNESIUM 2.2 mg/dL (1.8-2.4); PHOSPHOROUS 3.2 mg/dL (2.5-4.9); UREA NITROGEN, BLOOD 36 mg/dL (7-18)
[2021-04-13 05:17] LABS: HEMATOCRIT 24.8 % (31.2-41.9); MEAN CORPUSCULAR HEMOGLOBIN 22.1 uug (24.7-32.8); MEAN CORPUSCULAR VOLUME 69.6 fL (75.5-95.3); PLATELET COUNT (AUTO) 155 K/uL (179-408)
--- NOTE | 2021-04-13 06:00 | NUR ---
PEG TF off [id number].
[2021-04-13 06:17] LABS: ABG BASE EXCESS 4.9 mmol/L; ABG HCO3 27.4 mmol/L; ABG PCO2 32.3 mmHg (35.0-45.0); ABG PH 7.546 (7.350-7.450); ABG PO2 75.7 mmHg (75.0-100.0); ABG SITE LEFT RADIAL; ABG TOTAL HEMOGLOBIN 8.9 G/dL (12.0-16.0); COHb 0.7 % (0.5-1.5); MetHb 0.5 % (0.0-1.5); O2Hb 94.4 % (94.0-97.0); VENT MODE VENT - A/C; VT, ABG 450 mL
--- NOTE | 2021-04-13 07:05 | NUR ---
Received pt. on ventilator A/C16, Tv450, Peep +8, and 45% FIO2. slightly tachypneic rate in the mid 20's. Hemodynamically stable no need of vasopressors on sinus rhythm. Neuro-fernandes more responsive and attempting to open her eyes to verbal command. dave to gravity with clear naila output. IV line patent. G-T with feeding to be resumed. Will continue with care plan. Safety measures implemented at all times.
[2021-04-13] MEDS: CHOLECALCIFEROL 1,000 UNIT TABLET PO SCH (08:01)
[2021-04-13] MEDS: PANTOPRAZOLE ORAL SUSPENSION 40 MG SUSPDR.PKT GT SCH ×2 (08:01→20:12)
[2021-04-13] MEDS: DEXAMETHASONE SOD PHOSPHATE 4 MG INJ IV SCH (08:01)
[2021-04-13] MEDS: METOPROLOL TARTRATE 25 MG TABLET GT SCH ×2 (08:02→20:12)
[2021-04-13] MEDS: POLYVINYL ALCOHOL OPHT DROPS 15 ML BOTTLE EACHEYE SCH ×2 (08:02→16:22)
[2021-04-13] MEDS: VORICONAZOLE 200 MG TABLET PO SCH ×2 (08:02→20:12)
[2021-04-13] MEDS: INSULIN GLARGINE,HUM 300 UNITS/3 ML CARTRIDGE SQ SCH (08:06)
[2021-04-13] MEDS: REMEDY ESSENTIAL ZINC PASTE 113 GM TOP SCH ×2 (08:07→20:13)
[2021-04-13] MEDS: GLUCERNA 1.2 1000ML LIQUID GT PRN (08:20)
[2021-04-13 17:29] LABS: BAND % (MANUAL) 3 % (0-10); LYMPHOCYTES % (MANUAL) 2 % (20-40); MONOCYTES % (MANUAL) 1 % (2-10); NEUTROPHILS % (MANUAL) 94 % (42-75)
[2021-04-13] MEDS: MORPHINE SULFATE 2 MG/1 ML DISP.SYRIN IV PRN (18:04)
--- NOTE | 2021-04-13 19:00 | NUR ---
Received report. Patient is asleep, responsive to verbal stimuli, slightly opening eyes, grimacing and turns head from side to side. VSS. Trach Shiley 7.5 with vent settings of AC 16, TV 450, PEEP 7, FiO2 45%, O2 sat 96%. JACK PICC line heplock, patent and flushed. PEG TF Glucerna 1.2 @65mls/hr, no gastric residual noted. Moore catheter draining well to gravity. Flexiseal intact. Will continue to monitor closely.
--- NOTE | 2021-04-13 21:00 | NUR ---
Water flushes of 200ml q4 given.
[2021-04-13] MEDS: CEFEPIME HCL 1 G in IV DEXTROSE 5% 50 ML IV SCH (22:00)
[2021-04-14] VITALS (25 sets, daily range): BP systolic 119–170; BP diastolic 48–74
[2021-04-14] MEDS: MORPHINE SULFATE 2 MG/1 ML DISP.SYRIN IV PRN ×2 (01:03→05:29)
[2021-04-14] MEDS: hydrALAZINE HCL 20 MG/1 ML VIAL IV PRN (02:07)
[2021-04-14] MEDS: CEFEPIME HCL 1 G in IV DEXTROSE 5% 50 ML IV SCH ×3 (05:02→21:05)
[2021-04-14] MEDS: METHIMAZOLE 5 MG TABLET PO SCH ×3 (05:03→21:06)
[2021-04-14] MEDS: BLOOD SUGAR DIAGNOSTIC 1 EACH STRIP VI SCH ×5 (05:04→23:18)
[2021-04-14 05:11] LABS: HEMATOCRIT 22.8 % (31.2-41.9); MEAN CORPUSCULAR HEMOGLOBIN 22.4 uug (24.7-32.8); MEAN CORPUSCULAR VOLUME 69.7 fL (75.5-95.3); PLATELET COUNT (AUTO) 142 K/uL (179-408)
[2021-04-14 05:27] LABS: BILIRUBIN,TOTAL 0.4 mg/dL (0.2-1.0); CREATININE 0.6 mg/dL (0.6-1.3); PHOSPHOROUS 3.3 mg/dL (2.5-4.9); POTASSIUM 3.9 mmol/L (3.5-5.1); TOTAL PROTEIN, SERUM 4.8 g/dL (6.4-8.2)
[2021-04-14] MEDS: INSULIN REGULAR, HUMAN 300 UNIT/3 ML VIAL SQ PRN ×2 (05:27→23:32)
--- NOTE | 2021-04-14 06:00 | NUR ---
PEF TG off [id number].
--- NOTE | 2021-04-14 06:25 | NUR ---
Lab called and spoke with Nilay with regards to critical lab results. Called [facility] and spoke with Dr Toney for critical lab results, with no orders.
[2021-04-14 07:54] LABS: ABG BASE EXCESS 6.2 mmol/L; ABG HCO3 28.5 mmol/L; ABG PCO2 31.8 mmHg (35.0-45.0); ABG PH 7.571 (7.350-7.450); ABG PO2 79.3 mmHg (75.0-100.0); ABG SITE RIGHT RADIAL; ABG TOTAL HEMOGLOBIN 7.7 G/dL (12.0-16.0); COHb 0.7 % (0.5-1.5); MetHb 0.6 % (0.0-1.5); VENT MODE VENT - A/C; VT, ABG 450 mL
[2021-04-14] MEDS: VORICONAZOLE 200 MG TABLET PO SCH ×2 (08:05→20:32)
[2021-04-14] MEDS: DEXAMETHASONE SOD PHOSPHATE 4 MG INJ IV SCH (08:05)
[2021-04-14] MEDS: CHOLECALCIFEROL 1,000 UNIT TABLET PO SCH (08:05)
[2021-04-14] MEDS: PANTOPRAZOLE ORAL SUSPENSION 40 MG SUSPDR.PKT GT SCH ×2 (08:05→20:31)
[2021-04-14] MEDS: METOPROLOL TARTRATE 25 MG TABLET GT SCH ×2 (08:06→20:31)
[2021-04-14] MEDS: REMEDY ESSENTIAL ZINC PASTE 113 GM TOP SCH ×2 (08:08→20:34)
[2021-04-14] MEDS: POLYVINYL ALCOHOL OPHT DROPS 15 ML BOTTLE EACHEYE SCH ×2 (08:08→16:52)
[2021-04-14] MEDS: INSULIN GLARGINE,HUM 300 UNITS/3 ML CARTRIDGE SQ SCH (08:16)
[2021-04-14] MEDS: VANCOMYCIN FOR PO/GT/NG USE PO SCH ×3 (12:43→20:32)
--- NOTE | 2021-04-14 19:00 | NUR ---
Received report. Patient is asleep, responsive to verbal stimuli, slightly opening eyes, grimacing and turns head from side to side. VSS. Trach Shiley 7.5 with vent settings of AC 16, TV 450, PEEP 6, FiO2 45%, O2 sat 96%. JACK PICC line heplock, patent and flushed. PEG TF Glucerna 1.2 @65mls/hr, no gastric residual noted. Moore catheter draining well to gravity. Flexiseal intact. Will continue to monitor closely.
--- NOTE | 2021-04-14 19:40 | NUR ---
Lab called and spoke with Harry for critical lab results Hbg 7.1. Called [facility] and spoke with Dr Adams and relayed lab results. Per Dr Adams, to draw H/H @2330 and if result is the same or < 7, give 1 "u" PRBC and recheck H/H after 1 hour post BT. Noted and carried out.
[2021-04-14 19:42] LABS: HEMATOCRIT 21.9 % (31.2-41.9)
[2021-04-14 23:56] LABS: HEMATOCRIT 21.5 % (31.2-41.9)
[2021-04-15] VITALS (28 sets, daily range): BP systolic 109–170; BP diastolic 49–91
--- NOTE | 2021-04-15 00:30 | NUR ---
Called Chase Interiano to consent for BT, 2 RN witnessed. Consent placed to chart.
--- NOTE | 2021-04-15 02:50 | NUR ---
Pre transfusion VS, T=97.7, HR=86, RR=26, BK=110/50.
--- NOTE | 2021-04-15 03:05 | NUR ---
BT started. VSS. See BT flowsheet. Will continue to monitor closely.
[2021-04-15] MEDS: CEFEPIME HCL 1 G in IV DEXTROSE 5% 50 ML IV SCH ×3 (05:18→21:05)
[2021-04-15] MEDS: METHIMAZOLE 5 MG TABLET PO SCH ×3 (05:23→21:05)
[2021-04-15] MEDS: BLOOD SUGAR DIAGNOSTIC 1 EACH STRIP VI SCH ×3 (05:42→17:50)
[2021-04-15] MEDS: INSULIN REGULAR, HUMAN 300 UNIT/3 ML VIAL SQ PRN (05:43)
--- NOTE | 2021-04-15 05:45 | NUR ---
BT done. VSS. See transfusion flowsheet. No signs of reaction noted.
[2021-04-15 07:18] LABS: HEMATOCRIT 27.2 % (31.2-41.9); MEAN CORPUSCULAR HEMOGLOBIN 24.5 uug (24.7-32.8); MEAN CORPUSCULAR VOLUME 74.4 fL (75.5-95.3); PLATELET COUNT (AUTO) 127 K/uL (179-408)
[2021-04-15] MEDS: GLUCERNA 1.2 1000ML LIQUID GT PRN (08:00)
[2021-04-15] MEDS: PANTOPRAZOLE ORAL SUSPENSION 40 MG SUSPDR.PKT GT SCH ×2 (08:01→20:53)
[2021-04-15] MEDS: DEXAMETHASONE SOD PHOSPHATE 4 MG INJ IV SCH (08:01)
[2021-04-15] MEDS: REMEDY ESSENTIAL ZINC PASTE 113 GM TOP SCH ×2 (08:01→20:54)
[2021-04-15] MEDS: CHOLECALCIFEROL 1,000 UNIT TABLET PO SCH (08:01)
[2021-04-15 08:02] LABS: ABG BASE EXCESS 2.9 mmol/L; ABG HCO3 25.9 mmol/L; ABG PCO2 33.4 mmHg (35.0-45.0); ABG PH 7.507 (7.350-7.450); ABG PO2 72.4 mmHg (75.0-100.0); ABG SITE LEFT BRACHIAL; ABG TOTAL HEMOGLOBIN 9.8 G/dL (12.0-16.0); COHb 0.2 % (0.5-1.5); MetHb 0.4 % (0.0-1.5); O2Hb 94.5 % (94.0-97.0); VENT MODE VENT - A/C; VT, ABG 450 mL
[2021-04-15] MEDS: NUTRISOURCE FIBER 4 GM PACKET GT SCH (08:02)
[2021-04-15] MEDS: METOPROLOL TARTRATE 25 MG TABLET GT SCH ×2 (08:02→20:53)
[2021-04-15] MEDS: VORICONAZOLE 200 MG TABLET PO SCH ×2 (08:03→20:57)
[2021-04-15] MEDS: VANCOMYCIN FOR PO/GT/NG USE PO SCH ×4 (08:03→20:55)
[2021-04-15] MEDS: POLYVINYL ALCOHOL OPHT DROPS 15 ML BOTTLE EACHEYE SCH ×2 (08:04→17:36)
[2021-04-15] MEDS: INSULIN GLARGINE,HUM 300 UNITS/3 ML CARTRIDGE SQ SCH (08:07)
[2021-04-15 08:37] LABS: CREATININE 0.6 mg/dL (0.6-1.3); POTASSIUM 4.2 mmol/L (3.5-5.1)
--- NOTE | 2021-04-15 20:00 | NUR ---
patient in bed open eyes to name but doesn't follow commands, right and left upper and lower extremities flaccid with generalized edema .no spontaneous movement noted . trach Shiley 7.5 ac 16/450 peep 5 fio2 45%. f/c to bsd with yellowish urine . peg tube feeding w/Glucerna at 65 cc/hr and with q6 200 ml free water flushes. fingerstick q6 hourly and to follow insulin sliding scale . flexiseal rectal tube in placed .
--- NOTE | 2021-04-15 22:00 | NUR ---
turned and reposition patient offloaded back with pillow and bue and ble elevated with pillows . hob up aspiration precaution observed .
[2021-04-15] MEDS: hydrALAZINE HCL 20 MG/1 ML VIAL IV PRN (22:40)
[2021-04-16] VITALS (24 sets, daily range): BP systolic 125–190; BP diastolic 50–93
--- NOTE | 2021-04-16 | NUR ---
fingerstick done and follow insulin sliding scale . see emar .
[2021-04-16] MEDS: BLOOD SUGAR DIAGNOSTIC 1 EACH STRIP VI SCH ×5 (00:02→23:40)
--- NOTE | 2021-04-16 02:04 | NUR ---
PATIENT ON CONT WRAY VENT WITH 7.[address] AND SECURED, SUCTION PRN , CHANGE HME, VENT SETTINGS, A/C 16, 450ML, PEEP5, FIO2 @ 45% PT DOES ASSIST AT TIMES SEMI FAST , THEN SLOWS DOWN, , NO VENT CHANGES MADE AT THIS TIME . Teresa KAY RCP Addendum: 04/16/21 at 0207 by SOREN KAY RT Amended: Links added.
--- NOTE | 2021-04-16 04:30 | NUR ---
am care done ,bath patient changed soiled linens and gown . irrigated flexiseal rectal tube changed rectal bag stool amt 200 ml brownish liquid stool .
[2021-04-16 05:14] LABS: HEMATOCRIT 31.1 % (31.2-41.9); MEAN CORPUSCULAR HEMOGLOBIN 24.4 uug (24.7-32.8); MEAN CORPUSCULAR VOLUME 74.3 fL (75.5-95.3); PLATELET COUNT (AUTO) 141 K/uL (179-408)
[2021-04-16 05:22] LABS: CARBON DIOXIDE 27 mmol/L (21-32); CHLORIDE 104 mmol/L (98-107); CREATININE 0.6 mg/dL (0.6-1.3); GLUCOSE 119 mg/dL (74-106); POTASSIUM 3.8 mmol/L (3.5-5.1); UREA NITROGEN, BLOOD 32 mg/dL (7-18)
[2021-04-16] MEDS: METHIMAZOLE 5 MG TABLET PO SCH (05:28)
[2021-04-16] MEDS: CEFEPIME HCL 1 G in IV DEXTROSE 5% 50 ML IV SCH ×3 (05:28→22:00)
--- NOTE | 2021-04-16 05:30 | NUR ---
prn hydralazine given c/o sbp >160 mm/hg see emar .
[2021-04-16] MEDS: hydrALAZINE HCL 20 MG/1 ML VIAL IV PRN ×2 (05:48→12:07)
--- NOTE | 2021-04-16 08:30 | NUR ---
Aristides reported to Dr Gonzalez
[2021-04-16 08:43] LABS: ABG BASE EXCESS 3.2 mmol/L; ABG HCO3 24.7 mmol/L; ABG PCO2 27.7 mmHg (35.0-45.0); ABG PH 7.568 (7.350-7.450); ABG PO2 66.1 mmHg (75.0-100.0); ABG SITE LEFT RADIAL; MetHb 0.3 % (0.0-1.5); O2Hb 92.9 % (94.0-97.0); VENT MODE VENT - A/C; VT, ABG 450 mL
[2021-04-16] MEDS: CHOLECALCIFEROL 1,000 UNIT TABLET GT SCH (09:02)
[2021-04-16] MEDS: PANTOPRAZOLE ORAL SUSPENSION 40 MG SUSPDR.PKT GT SCH ×2 (09:02→20:27)
[2021-04-16] MEDS: DEXAMETHASONE SOD PHOSPHATE 4 MG INJ IV SCH (09:02)
[2021-04-16] MEDS: LOSARTAN POTASSIUM 50 MG TABLET GT SCH (09:03)
[2021-04-16] MEDS: METOPROLOL TARTRATE 25 MG TABLET GT SCH ×2 (09:03→20:27)
[2021-04-16] MEDS: POLYVINYL ALCOHOL OPHT DROPS 15 ML BOTTLE EACHEYE SCH ×2 (09:04→17:28)
[2021-04-16] MEDS: NUTRISOURCE FIBER 4 GM PACKET GT SCH (09:04)
[2021-04-16] MEDS: VANCOMYCIN FOR PO/GT/NG USE GT SCH ×4 (09:07→20:28)
[2021-04-16] MEDS: VORICONAZOLE 200 MG TABLET GT SCH ×2 (09:08→20:28)
[2021-04-16] MEDS: REMEDY ESSENTIAL ZINC PASTE 113 GM TOP SCH ×2 (09:09→20:32)
[2021-04-16] MEDS: INSULIN GLARGINE,HUM 300 UNITS/3 ML CARTRIDGE SQ SCH (09:17)
[2021-04-16] MEDS: METHIMAZOLE 5 MG TABLET GT SCH ×2 (13:15→21:59)
--- NOTE | 2021-04-16 13:51 | NUR ---
VENT CHANGES MADE TOLERATED PER MD ORDER. CHANGED VT FROM 450 TO 400. TOLERATING WELL WITH NO ADVERSE REACTIONS NOTED AT THIS TIME. WILL CONTINUE TO MONITOR.
[2021-04-16] MEDS: INSULIN REGULAR, HUMAN 300 UNIT/3 ML VIAL SQ PRN ×2 (17:36→23:41)
--- NOTE | 2021-04-16 18:48 | NUR ---
patient is awake at times, turned repositioned every 2 hours, kept clean and dry, dressing intact and changed to blisters, g-tube intact with positive placement. examined by construction trades teacher, automatic glove former, and hospitalist at bedside
--- NOTE | 2021-04-16 19:30 | NUR ---
ROUNDS MADE PATIENT TRACH TO VENT AC16/400/PEEP 5 FIO2 45%,TOLERATING VENT SETTINGS RR 30 SATURATION 97%. PATIENT OPEN EYES SPONTANEOUSLY BUT DOESN'T FOLLOW COMMANDS .
--- NOTE | 2021-04-16 21:30 | NUR ---
PAIN MEDICATION GIVEN C/O RR >31 AND FACIAL GRIMACING NOTED .
[2021-04-16] MEDS: MORPHINE SULFATE 2 MG/1 ML DISP.SYRIN IV PRN (22:03)
[2021-04-17] VITALS (24 sets, daily range): BP systolic 105–166; BP diastolic 45–75
--- NOTE | 2021-04-17 | NUR ---
FINGERSTICK DONE AND FOLLOW ISS . FREE WATER FLUSHES 200 ML DONE VIA PEG . TOLERATING TUBE FEEDINGS .
--- NOTE | 2021-04-17 01:18 | NUR ---
PATIENT ON CONT WRAY VENT WITH PORTEX #7.[address] AND SECURED, SUCTION SLIGHT BLOODY TINGE SECRETIONS, THEN CLEARING WITH NS, PT DOES BREATH SEMI RAPID AT TIMES, 26-30 RR, SAT 97% APPROX, PT ON FIO2 @ 45%WITH PEEP 5. D ELIZA TECHNICIAN BIOLOGICAL HEALTH Addendum: 04/17/21 at 0120 by SOREN KAY RT Amended: Links added.
--- NOTE | 2021-04-17 02:00 | NUR ---
turned and reposition patient offloaded back and bilateral lower legs with pillow .
--- NOTE | 2021-04-17 04:00 | NUR ---
irrigated flexiseal tube with liquid brownish stool . am care done ,bath patient changed soiled linens and gown . Moore and perineal care done . z guard applied and hydrogel to sacral and bilateral groin area . Mepilex to sacral area . oral care done ,suction patient via trach and via mouth .
[2021-04-17] MEDS: hydrALAZINE HCL 20 MG/1 ML VIAL IV PRN (04:40)
--- NOTE | 2021-04-17 04:40 | NUR ---
hydralazine prn given c/o bp >160 mm/hg.
[2021-04-17] MEDS: METHIMAZOLE 5 MG TABLET GT SCH ×3 (05:23→21:10)
[2021-04-17] MEDS: CEFEPIME HCL 1 G in IV DEXTROSE 5% 50 ML IV SCH ×3 (05:23→21:09)
[2021-04-17] MEDS: INSULIN REGULAR, HUMAN 300 UNIT/3 ML VIAL SQ PRN (05:27)
[2021-04-17] MEDS: BLOOD SUGAR DIAGNOSTIC 1 EACH STRIP VI SCH ×4 (05:28→23:26)
[2021-04-17 05:42] LABS: CARBON DIOXIDE 26 mmol/L (21-32); CHLORIDE 107 mmol/L (98-107); CREATININE 0.5 mg/dL (0.6-1.3); GLUCOSE 138 mg/dL (74-106); MAGNESIUM 2.1 mg/dL (1.8-2.4); PHOSPHOROUS 3.3 mg/dL (2.5-4.9); POTASSIUM 3.8 mmol/L (3.5-5.1); UREA NITROGEN, BLOOD 27 mg/dL (7-18)
[2021-04-17 05:58] LABS: HEMATOCRIT 29.3 % (31.2-41.9); MEAN CORPUSCULAR HEMOGLOBIN 24.8 uug (24.7-32.8); MEAN CORPUSCULAR VOLUME 75.8 fL (75.5-95.3); PLATELET COUNT (AUTO) 152 K/uL (179-408)
[2021-04-17 07:54] LABS: ABG BASE EXCESS 2.2 mmol/L; ABG HCO3 24.9 mmol/L; ABG PCO2 31.9 mmHg (35.0-45.0); ABG PO2 67.8 mmHg (75.0-100.0); ABG SITE RIGHT RADIAL; ABG TOTAL HEMOGLOBIN 10.4 G/dL (12.0-16.0); COHb 0.6 % (0.5-1.5); MetHb 0.4 % (0.0-1.5); O2Hb 93.3 % (94.0-97.0); VENT MODE VENT - A/C; VT, ABG 400 mL
[2021-04-17] MEDS: GLUCERNA 1.2 1000ML LIQUID GT PRN (08:07)
[2021-04-17] MEDS: POLYVINYL ALCOHOL OPHT DROPS 15 ML BOTTLE EACHEYE SCH ×2 (08:08→17:19)
[2021-04-17] MEDS: METOPROLOL TARTRATE 25 MG TABLET GT SCH ×2 (08:09→20:50)
[2021-04-17] MEDS: CHOLECALCIFEROL 1,000 UNIT TABLET GT SCH (08:09)
[2021-04-17] MEDS: LOSARTAN POTASSIUM 50 MG TABLET GT SCH (08:09)
[2021-04-17] MEDS: PANTOPRAZOLE ORAL SUSPENSION 40 MG SUSPDR.PKT GT SCH ×2 (08:09→20:48)
[2021-04-17] MEDS: DEXAMETHASONE SOD PHOSPHATE 4 MG INJ IV SCH (08:10)
[2021-04-17] MEDS: NUTRISOURCE FIBER 4 GM PACKET GT SCH (08:10)
[2021-04-17] MEDS: REMEDY ESSENTIAL ZINC PASTE 113 GM TOP SCH ×2 (08:11→20:51)
[2021-04-17] MEDS: VORICONAZOLE 200 MG TABLET GT SCH ×2 (08:11→20:51)
[2021-04-17] MEDS: INSULIN GLARGINE,HUM 300 UNITS/3 ML CARTRIDGE SQ SCH (08:18)
[2021-04-17] MEDS: VANCOMYCIN FOR PO/GT/NG USE GT SCH ×4 (08:21→20:50)
--- NOTE | 2021-04-17 08:30 | NUR ---
PT.WAS SEEN BY CUONG JEAN MD WITH NEW ORDERS
--- NOTE | 2021-04-17 09:45 | NUR ---
PT.WAS SEEN BY WITH NEW ORDERS.
--- NOTE | 2021-04-17 15:36 | NUR ---
Pt received on given settings of AC, RR 16, VT 400, PEEP +5, Fio2 45%. Shiley 7.5 trach cuffed. Trach tube is in place and in tact. Alarms on and audible. Will continue to monitor through out shift.
--- NOTE | 2021-04-17 16:40 | NUR ---
Son of the pt.was updated with pt.condition and plan of care for the pt.
--- NOTE | 2021-04-17 19:01 | NUR ---
No changes in pt.condition,no s/s of distress or pain.
--- NOTE | 2021-04-17 19:30 | NUR ---
patient in bed trach to vent , Shiley 7.5 ac 16/400/peep 5 and fio2 45 % . tolerating vent settings saturation 96 % rr 26.OPEN Eyes spontaneous patient on and off track,but doesn't follow commands . BUE AND BLE extremities with generalized edema ,extremities flaccid no spontaneous movement noted . PEG ,patent on TF GLUCERNA at 65 cc /ml in progress ,flushed with water tolerating tube feedings ,hob up and aspiration precaution observed, hob up . SR on the heart monitor . OLIVARES AND FLEXISEAL IN PLACED .
[2021-04-18] VITALS (22 sets, daily range): BP systolic 116–177; BP diastolic 53–80
--- NOTE | 2021-04-18 | NUR ---
FINGERSTICK DONE AND FOLLOW ISS FREE WATER FLUSHES GIVEN VIA THE PEG 200 ML.
[2021-04-18] MEDS: MORPHINE SULFATE 2 MG/1 ML DISP.SYRIN IV PRN ×3 (01:14→18:20)
--- NOTE | 2021-04-18 02:30 | NUR ---
AM CARE DONE BATH PATIENT .CHANGED SOILED LINENS AND GOWN . OLIVARES CATHETER DONE AND TRACH CARE DONE . .
[2021-04-18] MEDS: hydrALAZINE HCL 20 MG/1 ML VIAL IV PRN ×2 (03:24→18:10)
[2021-04-18 04:59] LABS: CARBON DIOXIDE 26 mmol/L (21-32); CHLORIDE 105 mmol/L (98-107); CREATININE 0.5 mg/dL (0.6-1.3); GLUCOSE 135 mg/dL (74-106); MAGNESIUM 2.1 mg/dL (1.8-2.4); PHOSPHOROUS 3.1 mg/dL (2.5-4.9); POTASSIUM 3.8 mmol/L (3.5-5.1); UREA NITROGEN, BLOOD 25 mg/dL (7-18)
[2021-04-18 05:10] LABS: HEMATOCRIT 30.7 % (31.2-41.9); MEAN CORPUSCULAR HEMOGLOBIN 24.7 uug (24.7-32.8); MEAN CORPUSCULAR VOLUME 76.8 fL (75.5-95.3); PLATELET COUNT (AUTO) 152 K/uL (179-408)
[2021-04-18] MEDS: INSULIN REGULAR, HUMAN 300 UNIT/3 ML VIAL SQ PRN ×2 (05:22→05:24)
[2021-04-18] MEDS: CEFEPIME HCL 1 G in IV DEXTROSE 5% 50 ML IV SCH ×3 (05:24→21:21)
[2021-04-18] MEDS: METHIMAZOLE 5 MG TABLET GT SCH ×3 (05:25→21:18)
[2021-04-18] MEDS: BLOOD SUGAR DIAGNOSTIC 1 EACH STRIP VI SCH ×4 (05:25→23:41)
--- NOTE | 2021-04-18 06:00 | NUR ---
FINGERSTICK DONE AND FOLLOW ISS . FREE WATER 200 ML GIVEN Q6 VIA THE PEG .
--- NOTE | 2021-04-18 08:10 | NUR ---
Patient report received from PM nurse, Halina SNOW.
[2021-04-18] MEDS: GLUCERNA 1.2 1000ML LIQUID GT PRN (08:22)
[2021-04-18] MEDS: METOPROLOL TARTRATE 25 MG TABLET GT SCH ×2 (08:44→21:19)
[2021-04-18] MEDS: DEXAMETHASONE SOD PHOSPHATE 4 MG INJ IV SCH (08:45)
[2021-04-18] MEDS: CHOLECALCIFEROL 1,000 UNIT TABLET GT SCH (08:45)
[2021-04-18] MEDS: VANCOMYCIN FOR PO/GT/NG USE GT SCH (08:46)
[2021-04-18] MEDS: PANTOPRAZOLE ORAL SUSPENSION 40 MG SUSPDR.PKT GT SCH ×2 (08:46→21:19)
[2021-04-18] MEDS: LOSARTAN POTASSIUM 50 MG TABLET GT SCH (08:46)
[2021-04-18] MEDS: VORICONAZOLE 200 MG TABLET GT SCH ×2 (08:47→21:22)
[2021-04-18] MEDS: INSULIN GLARGINE,HUM 300 UNITS/3 ML CARTRIDGE SQ SCH (08:49)
[2021-04-18] MEDS: NUTRISOURCE FIBER 4 GM PACKET GT SCH (08:51)
[2021-04-18] MEDS: POLYVINYL ALCOHOL OPHT DROPS 15 ML BOTTLE EACHEYE SCH ×2 (08:57→17:17)
[2021-04-18] MEDS: REMEDY ESSENTIAL ZINC PASTE 113 GM TOP SCH ×2 (08:59→21:20)
--- NOTE | 2021-04-18 14:30 | NUR ---
replaced dave cath (indwelling ) fr 18 via sterile technique. pt able to tolerate procedure
--- NOTE | 2021-04-18 14:43 | NUR ---
Patient's son (Chase Martin) called for update. Son also like to inform the health care team to remove the DNR and replace with Full code as of today. Mold Checker informed charge nurse, and MD regarding family's decision.
--- NOTE | 2021-04-18 16:01 | NUR ---
Dr Araiza aware of change in advance directive
--- NOTE | 2021-04-18 18:30 | NUR ---
Upon rounds, ensured rectal tubing was patent and draining well at level 700mL indwelling dave cath drainage bag replaced because underwriter noticed a hole.was able to collect 350mL urine, clear with usual odor. Ensured pt is comfortable and turned according to schedule
--- NOTE | 2021-04-18 19:07 | NUR ---
report given to incoming rotary filter operator rn
[2021-04-18] MEDS: IV NORMAL SALINE 250 ML IV PRN (22:07)
[2021-04-19] VITALS (15 sets, daily range): BP systolic 109–162; BP diastolic 56–80
[2021-04-19] MEDS: BLOOD SUGAR DIAGNOSTIC 1 EACH STRIP VI SCH ×2 (05:07→12:13)
[2021-04-19] MEDS: CEFEPIME HCL 1 G in IV DEXTROSE 5% 50 ML IV SCH (05:15)
[2021-04-19] MEDS: METHIMAZOLE 5 MG TABLET GT SCH ×2 (05:15→13:35)
[2021-04-19 05:38] LABS: CARBON DIOXIDE 26 mmol/L (21-32); CHLORIDE 104 mmol/L (98-107); CREATININE 0.4 mg/dL (0.6-1.3); GLUCOSE 80 mg/dL (74-106); MAGNESIUM 2.3 mg/dL (1.8-2.4); PHOSPHOROUS 2.9 mg/dL (2.5-4.9); POTASSIUM 3.5 mmol/L (3.5-5.1); UREA NITROGEN, BLOOD 23 mg/dL (7-18)
[2021-04-19] MEDS: IV NORMAL SALINE 250 ML IV PRN (05:49)
[2021-04-19] MEDS: hydrALAZINE HCL 20 MG/1 ML VIAL IV PRN (06:01)
[2021-04-19 06:11] LABS: HEMATOCRIT 29.2 % (31.2-41.9); MEAN CORPUSCULAR HEMOGLOBIN 24.2 uug (24.7-32.8); MEAN CORPUSCULAR VOLUME 75.6 fL (75.5-95.3); PLATELET COUNT (AUTO) 134 K/uL (179-408)
--- NOTE | 2021-04-19 07:10 | NUR ---
Received pt. on ventilator Shiley 7.5, On A/C of 16, Tv 400 Peep +5, and FIO2 45%. saturation of of 95-98%. no respiratory distress noted. Hemodynamically stable, with sbp within desired limits. G-T with feeding to be resumed. dave to gravity clear naila output. RT with watery brown output. IV line patent will continue to monitor.
[2021-04-19 07:36] LABS: ABG BASE EXCESS 1.3 mmol/L; ABG HCO3 23.7 mmol/L; ABG PCO2 30.2 mmHg (35.0-45.0); ABG PH 7.513 (7.350-7.450); ABG PO2 57.5 mmHg (75.0-100.0); ABG SITE LEFT RADIAL; ABG TOTAL HEMOGLOBIN 10.9 G/dL (12.0-16.0); COHb 0.6 % (0.5-1.5); MetHb 0.5 % (0.0-1.5); O2Hb 91.2 % (94.0-97.0); VENT MODE VENT - A/C 16; VT, ABG 400 mL
--- NOTE | 2021-04-19 08:30 | NUR ---
Attending Dr. Adams in the unit to see and examine pt. report given, orders to continue with care plan received, and with him and Dr. Gonzalez in the unit case management called for update, and we were informed by THEO Wong that she will keep us updated on transfer status.
[2021-04-19] MEDS: CHOLECALCIFEROL 1,000 UNIT TABLET GT SCH (08:31)
[2021-04-19] MEDS: METOPROLOL TARTRATE 25 MG TABLET GT SCH (08:31)
[2021-04-19] MEDS: LOSARTAN POTASSIUM 50 MG TABLET GT SCH (08:31)
[2021-04-19] MEDS: DEXAMETHASONE SOD PHOSPHATE 4 MG INJ IV SCH (08:31)
[2021-04-19] MEDS: POLYVINYL ALCOHOL OPHT DROPS 15 ML BOTTLE EACHEYE SCH (08:32)
[2021-04-19] MEDS: NUTRISOURCE FIBER 4 GM PACKET GT SCH (08:32)
[2021-04-19] MEDS: PANTOPRAZOLE ORAL SUSPENSION 40 MG SUSPDR.PKT GT SCH (08:32)
[2021-04-19] MEDS: REMEDY ESSENTIAL ZINC PASTE 113 GM TOP SCH (08:33)
[2021-04-19] MEDS: INSULIN GLARGINE,HUM 300 UNITS/3 ML CARTRIDGE SQ SCH (08:36)
[2021-04-19] MEDS: GLUCERNA 1.2 1000ML LIQUID GT PRN (08:37)
[2021-04-19] MEDS: VORICONAZOLE 200 MG TABLET GT SCH (08:48)
--- NOTE | 2021-04-19 09:20 | NUR ---
Pulmonary services, Dr. Gonzalez in the unit to see and examine pt. report given, see order hx.
--- NOTE | 2021-04-19 11:15 | NUR ---
A call to [facility] and telephone report given to Enedelia Cervantes. all systems covered and R.N. informed pt. will be pickle cutter at 1430. As per Charline receiving physician will be Jaskaran Lee.
[2021-04-19] MEDS ORDERED: BISA10SU12 RC (11:38)
[2021-04-19] MEDS ORDERED: LORA2VIA6 IV (11:38)
[2021-04-19] MEDS ORDERED: DEXA4VIA17 IV (11:38)
[2021-04-19] MEDS ORDERED: HYDR20VI4 IV (11:38)
[2021-04-19] MEDS ORDERED: PANT40SU2 GT (11:38)
[2021-04-19] MEDS ORDERED: METO25TA6 GT (11:38)
[2021-04-19] MEDS ORDERED: Morphine Sulfate Inj IV (11:38)
[2021-04-19] MEDS ORDERED: CHOL100062 GT (11:38)
[2021-04-19] MEDS ORDERED: ACET650S26 GT (11:38)
[2021-04-19] MEDS ORDERED: Wheat Dextrin GT (11:38)
[2021-04-19] MEDS ORDERED: Insulin Glargine,Hum SQ (11:38)
[2021-04-19] MEDS ORDERED: LOSA50TA3 GT (11:38)
[2021-04-19] MEDS ORDERED: Blood Sugar Diagnostic VI (11:38)
[2021-04-19] MEDS ORDERED: Glucerna 1.2 GT (11:38)
[2021-04-19] MEDS ORDERED: ONDA4VIA23 IV (11:38)
[2021-04-19] MEDS ORDERED: DEXT50DI8 IV (11:38)
[2021-04-19] MEDS ORDERED: INSU100V28 SQ (11:38)
[2021-04-19] MEDS ORDERED: METH5TAB34 GT (11:55)
[2021-04-19] MEDS: DEXTROSE 50% 50 ML DISP.SYRIN IV PRN ×2 (11:57→13:34)
--- NOTE | 2021-04-19 14:25 | NUR ---
DCD instructions provided to pt. but unable to comprehend at this time. dcd paper work placed in a dcd envelope. report given pt. will be going with PICC line patent. on ventilator A/C 16, TV400 peep+5, and FIO2 40%, RR in the low to mid-30's. dave to gravity and as requested by Enedelia Cervantes from [facility] due to watery diarrhea RT not to be removed, as pt. will be reassessed by receiving Jaskaran Lee and determined if pt. still needed due to open blisters inner thigh area. Dave to gravity. Pictures taken.
--- NOTE | 2021-04-19 14:31 | NUR ---
original belongings list not found in the chart a new one created, yellow purse just open to place a cell phone, and reading glasses, this was done with R.N. Yany as witness. purse placed back in belongings bag. and placed at bedside. Awaiting to be berry picker.
--- NOTE | 2021-04-19 14:54 | NUR ---
EMT staff in the unit to take pt. to [facility]. report given to both R.T and R.N. pt. left AAOX1, vitals of hr. of 91, 149/66, on ventilator trache shiley 7.5, A/C 16, tv400, Peep +5, and 40% FIO2.IV line patent dave to gravity and rectal tube in place.
== END 2021-04-19 15:49 | DRG 4 ==
LOC: ER 19:28 → TRANSITION 21:54 → UNDOADMIN 22:39 → TELE3 03-21 02:28 → CCU 03-24 16:33
PROVIDERS: ADMIT Nurse Practitioner Acute Care; ATTEND Family Medicine
PROC: 5A09457 Assistance with Respiratory Ventilation, 24-96 Consecutive Hours, Continuous Positive Airway Pressure (ICD-10-PCS; principal; 2021-03-20)
PROC: XW033H5 Introduction of Tocilizumab into Peripheral Vein, Percutaneous Approach, New Technology Group 5 (ICD-10-PCS; 2021-03-21)
PROC: XW033E5 Introduction of Remdesivir Anti-infective into Peripheral Vein, Percutaneous Approach, New Technology Group 5 (ICD-10-PCS; 2021-03-21)
PROC: 05H933Z Insertion of Infusion Device into Right Brachial Vein, Percutaneous Approach (ICD-10-PCS; 2021-03-24)
PROC: 5A1955Z Respiratory Ventilation, Greater than 96 Consecutive Hours (ICD-10-PCS; 2021-03-25)
PROC: 0BH17EZ Insertion of Endotracheal Airway into Trachea, Via Natural or Artificial Opening (ICD-10-PCS; 2021-03-25)
PROC: 02HV33Z Insertion of Infusion Device into Superior Vena Cava, Percutaneous Approach (ICD-10-PCS; 2021-03-26)
PROC: 02HV33Z Insertion of Infusion Device into Superior Vena Cava, Percutaneous Approach (ICD-10-PCS; 2021-03-26)
PROC: B548ZZA Ultrasonography of Superior Vena Cava, Guidance (ICD-10-PCS; 2021-03-26)
PROC: 0B113F4 Bypass Trachea to Cutaneous with Tracheostomy Device, Percutaneous Approach (ICD-10-PCS; 2021-04-07)
PROC: 0BJ08ZZ Inspection of Tracheobronchial Tree, Via Natural or Artificial Opening Endoscopic (ICD-10-PCS; 2021-04-07)
PROC: 0DH63UZ Insertion of Feeding Device into Stomach, Percutaneous Approach (ICD-10-PCS; 2021-04-10)
DX: A41.89 Other specified sepsis (principal); U07.1 COVID-19; J12.82 Pneumonia due to coronavirus disease 2019; N17.0 Acute kidney failure with tubular necrosis; R65.21 Severe sepsis with septic shock; E43 Unspecified severe protein-calorie malnutrition; J96.01 Acute respiratory failure with hypoxia; G92.8 Other toxic encephalopathy; I50.31 Acute diastolic (congestive) heart failure; J96.02 Acute respiratory failure with hypercapnia; N39.0 Urinary tract infection, site not specified; D68.59 Other primary thrombophilia; E87.1 Hypo-osmolality and hyponatremia; E87.3 Alkalosis; K92.2 Gastrointestinal hemorrhage, unspecified; J98.2 Interstitial emphysema; B96.1 Klebsiella pneumoniae [K. pneumoniae] as the cause of diseases classified elsewhere; D50.9 Iron deficiency anemia, unspecified; E03.9 Hypothyroidism, unspecified; E05.90 Thyrotoxicosis, unspecified without thyrotoxic crisis or storm; E11.65 Type 2 diabetes mellitus with hyperglycemia; E86.1 Hypovolemia; E86.0 Dehydration; E87.6 Hypokalemia; E88.09 Other disorders of plasma-protein metabolism, not elsewhere classified; Z68.29 Body mass index [BMI] 29.0-29.9, adult; R31.9 Hematuria, unspecified; Z74.09 Other reduced mobility; I11.0 Hypertensive heart disease with heart failure; Z66 Do not resuscitate; Z79.4 Long term (current) use of insulin
CPT/HCPCS: 36415; 36569; 36600; 70030-TC; 71045; 71275; 82533; 83550; 83605; 83615; 83735; 84100; 84443; 84478; 84550; 85018; 85025; 85610; 85730; 86140; 86480; 86850; 86900; 86901; 86920; 87040; 87070; 87077; 87086; 87328; 93005; 93307; 94002; 94003; 94660; 94760; A4217; A4663; A6209; C9113; G0378; J0360; J0456; J0461; J0690; J0692; J0696; J1100; J1450; J1650; J1815; J1940; J2060; J2185; J2250; J2270; J2405; J2765; J3010; J3262; J3370; J3475; J3480; J3490; J7030; J7040; J7050; J7060; P9016; P9047; Q9967